=== PATIENT | female | born 1960 | race Caucasian/White ===

== ENCOUNTER → 2018-12-30 14:32 | Outpatient (CLI) | payer MEDICAID, SELFPAY ==
--- NOTE | 2018-12-30 14:39 | XR_ITS ---
XR knee RT 4V HISTORY: Knee pain ITS.REASON: ap, lateral, sunrise, arredondo weightbearing view ORDERING PHYSICIAN: Suha Rubalcava MD PATIENT AGE: 58 years COMPARISON: 09/29/2018 FINDINGS: There are mild osteoarthritic changes of the medial compartment unchanged. No fracture or dislocation. No lytic or blastic change. IMPRESSION: Mild osteoarthritis of the medial compartment
== END ==
PROVIDERS: PCP Nurse Practitioner; Visit Provider Orthopaedic Surgery
DX: M25.561 Pain in right knee (principal)
CPT/HCPCS: 73564

== ENCOUNTER 2020-04-02 23:48 | Emergency (ER) | payer SELFPAY ==
[2020-04-03 00:04] VITALS: BP 127/71; PULSE 91; RESP 17; TEMP 36.8; O2SAT 97; BMI 28.2
--- NOTE | 2020-04-03 00:13 | HMH.EDMCLR ---
ED Disposition Clinical Impression: Medical clearance for incarceration, Psychiatric complaint Disposition: Home, Self-Care Condition on Discharge: Good Instructions: DI for Psychosis Additional Instructions: call pcp for follow up and consider pschy eval Referrals: Brie Maxwell APRN [Primary Care Provider] - - Critical Care Critical Care Time: No Attestation: On 04/02/20, the high probability of a clinically significant, sudden or life threatening deterioration of the following system(s) required my full and direct attention, intervention and personal management. The time I documented below is in addition to time spent performing reported procedures but includes the following listed in this critical care notation. Medical Decision Making - Medical Records Medical records reviewed: Yes: I reviewed the patient's medical records. - Quinn Inquiry Pt receiving controlled substance: No Vital Signs: 04/03/20 00:04 Temperature 98.2 F Temperature Source Oral Pulse Rate [Right Brachial] 91 H Respiratory Rate 17 Blood Pressure [Right Arm] 127/71 Blood Pressure Mean [Right Arm] 89 Blood Pressure Source [Right Arm] Automatic Cuff Blood Pressure Position [Right Arm] Sitting 02 Sat by Pulse Oximetry 97 Oxygen Delivery Method Room Air - Lab Data Lab results reviewed: Yes: I reviewed the patient's lab results. Medical Clearance HPI - General Chief complaint: Psychiatric Symptoms Stated complaint: Medical Clearance Time Seen by Provider: 04/03/20 00:13 Mode of Arrival: Ambulatory Source of Information: Patient, Medical Record Description of Symptoms (Recalled from ER Triage Doc. by RN): pd brings in for medical clearance for incarceration to [facility], [facility]. 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 [id number]. no acute distress. - History of Present Illness HPI Narrative: pt with no trauma or chest pain and no specific issues - uncertain whether pt is having pschy issues MD complaint: medical clearance requested Onset (ago): hour(s) Reason for Medical Clearance: psychiatric condition Place: home Alleged Intoxication: No Traumatic Symptoms: denies traumatic injury Associated Symptoms: denies other symptoms Treatments Prior to Arrival: none Home medications: Home Medications Medication Instructions Recorded Confirmed ALPRAZolam [Alprazolam 2mg Tab] 1 tab PO QID 09/29/18 01/23/19 Celecoxib 200 mg PO DAILY 09/29/18 01/23/19 Cetirizine HCl 1 tab PO DAILY 09/29/18 01/23/19 Omeprazole [Omeprazole 20mg 1 cap PO BID 09/29/18 01/23/19 Capsule] Pravastatin Sodium [Pravachol 20mg 20 mg PO DAILY 09/29/18 01/23/19 Tablet] Tramadol HCl [Tramadol 50mg 1 tab PO Q6 PRN 09/29/18 01/23/19 Tab] gemfibroziL [Gemfibrozil] 600 mg PO BID 09/29/18 01/23/19 raNITIdine HCL [Heartburn Relief] 150 mg PO BID 09/29/18 01/23/19 Buspirone HCl [Buspar 10mg 10 mg PO BID 01/23/19 01/23/19 tablet] Hydralazine HCl [Hydralazine HCl 25 mg PO DAILY 01/23/19 01/23/19 25mg Tablet] Linaclotide [Linzess] 290 mcg PO DAILY 01/23/19 01/23/19 Ropinirole HCl 1 mg PO DAILY 01/23/19 01/23/19 Tramadol HCl [Tramadol 50mg 50 mg PO TID 01/23/19 01/23/19 Tab] diphenhydrAMINE HCL [Benadryl 25mg 25 mg PO TID 01/23/19 01/23/19 Capsule] Allergies/Adverse reactions: Allergies Allergy/AdvReac Type Severity Reaction Status Date / Time Penicillins Allergy Severe S-SWELLS-OR Verified 12/30/18 15:23 AL/THROAT acetaminophen [From Percocet] Allergy Intermediate I-HIVES Verified 12/30/18 15:23 aspirin [From Percodan] Allergy Intermediate I-HIVES; Verified 12/30/18 15:23 HALLUCINATIONS codeine Allergy Intermediate I-RASH Verified 12/30/18 15:23 egg [From EGGS (FOOD/DRUG)] Allergy Intermediate I-RASH Verified 12/30/18 15:23 morphine Allergy Intermediate I-RASH Verified 12/30/18 15:23 oxycodone [From Percodan] Allergy Inter
[2020-04-03 00:19] VITALS: BP 101/56; PULSE 85; RESP 16; TEMP 36.8; O2SAT 98
== END 2020-04-03 00:24 ==
PROVIDERS: Emergency Provider Emergency Medicine; PCP Nurse Practitioner
DX: F22 Delusional disorders (principal); R44.0 Auditory hallucinations; R44.1 Visual hallucinations; Z79.899 Other long term (current) drug therapy; Z88.0 Allergy status to penicillin; Z88.5 Allergy status to narcotic agent
CPT/HCPCS: 99281; 99282

== ENCOUNTER 2020-12-30 13:12 | Emergency (ER) | payer OTHER, SELFPAY ==
[2020-12-30 13:20] VITALS: BP 140/72; PULSE 83; RESP 20; TEMP 36.8; O2SAT 99; BMI 27.4
--- NOTE | 2020-12-30 13:59 | HMH.EDUTC ---
[facility] [place] Clinical Impression: Pedal edema Disposition: Home, Self-Care Condition on Discharge: Good Instructions: Edema (Alternative Therapy), DI for Dependent Edema Additional Instructions: Take your prescribed Lasix as it is prescribed *You was given a list of Family Doctors you may call and see if they are accepting new patient and make appointment Return if needed Straight to ER if any life threatening symptoms Referrals: PCP,No [Primary Care Provider] - As needed Time of Disposition: 14:07 Medical Decision Making - Quinn Inquiry Pt receiving controlled substance: No Quinn was queried for this patient: No Vital Signs: 12/30/20 13:20 12/30/20 14:16 Temperature 98.2 F 98.2 F Temperature Source Oral Pulse Rate 83 Pulse Rate [Right Brachial] 83 Respiratory Rate 20 20 Blood Pressure 140/72 Blood Pressure [Right Arm] 140/72 Blood Pressure Mean [Right Arm] 94 Blood Pressure Source [Right Arm] Automatic Cuff Blood Pressure Position [Right Arm] Sitting 02 Sat by Pulse Oximetry 99 Oxygen Delivery Method Room Air - Lab Data Lab results reviewed: Yes: I reviewed the patient's lab results. [facility] [place] - General Stated complaint: retaining fluid Time Seen by Provider: 12/30/20 13:59 Mode of Arrival: Ambulatory Source of Information: Patient Limitations: No Limitations Description of Symptoms (Recalled from Triage Doc. by RN): PATIENT C/O SWELLING IN BILATERAL FEET/LEGS, EXCESSIVE SWEATING, AND SORE FEET X 2 DAYS HEENT Symptoms (Recalled from RN notes): No Resp Symptoms (Recalled from RN notes): No Skin Symptoms (Recalled from RN notes): No MS Symptoms (Recalled from RN notes): No Functional Status (Recalled from RN notes): WNL - History of Present Illness Provider Complaint: Patient states that she has a history of edema and takes fluid pills States that recently her doctor left the clinic she was going too and another person took over her care and now they told her she had to find another PCP States that she had some edema for the last couple of weeks and she took her fluid pill and now the edema is better and she is no longer swollen but she was worried that she would run out of medication and didnt know what to do to find another PCP so she came here States that swelling and pain is gone at this time - Related Data Home Medications Medication Instructions Recorded Confirmed ALPRAZolam [Alprazolam 2mg Tab] 1 tab PO QID 09/29/18 01/23/19 Celecoxib 200 mg PO DAILY 09/29/18 01/23/19 Cetirizine HCl 1 tab PO DAILY 09/29/18 01/23/19 Omeprazole [Omeprazole 20mg 1 cap PO BID 09/29/18 01/23/19 Capsule] Pravastatin Sodium [Pravachol 20mg 20 mg PO DAILY 09/29/18 01/23/19 Tablet] Tramadol HCl [Tramadol 50mg 1 tab PO Q6 PRN 09/29/18 01/23/19 Tab] gemfibroziL [Gemfibrozil] 600 mg PO BID 09/29/18 01/23/19 raNITIdine HCL [Heartburn Relief] 150 mg PO BID 09/29/18 01/23/19 Buspirone HCl [Buspar 10mg 10 mg PO BID 01/23/19 01/23/19 tablet] Hydralazine HCl [Hydralazine HCl 25 mg PO DAILY 01/23/19 01/23/19 25mg Tablet] Linaclotide [Linzess] 290 mcg PO DAILY 01/23/19 01/23/19 Ropinirole HCl 1 mg PO DAILY 01/23/19 01/23/19 Tramadol HCl [Tramadol 50mg 50 mg PO TID 01/23/19 01/23/19 Tab] diphenhydrAMINE HCL [Benadryl 25mg 25 mg PO TID 01/23/19 01/23/19 Capsule] Allergies Allergy/AdvReac Type Severity Reaction Status Date / Time Penicillins Allergy Severe S-SWELLS-OR Verified 12/17/20 09:06 AL/THROAT acetaminophen [From Percocet] Allergy Intermediate I-HIVES Verified 12/17/20 09:06 aspirin [From Percodan] Allergy Intermediate I-HIVES; Verified 12/17/20 09:06 HALLUCINATIONS codeine Allergy Intermediate I-RASH Verified 12/17/20 09:06 egg [From EGGS (FOOD/DRUG)] Allergy Intermediate I-RASH Verified 12/17/20 09:06 morphine Allergy Intermediate I-RASH Verified 12/17/20 09:06 oxycodone [From Percodan] Allergy Intermediate I-HIVES; Verified 12/17/20 09:06
[2020-12-30 14:16] VITALS: BP 140/72; PULSE 83; RESP 20; TEMP 36.8; O2SAT 99
[2020-12-30 15:42] LABS: Apearance,Urine Clear (Clear); Bilirubin,Urine Negative (Negative); Blood, Urine Negative (Negative); Color,Urine Yellow (Yellow); Glucose,Urine (UA) Negative (Negative); Ketones,Urine Negative (Negative); Protein,Urine Negative (Negative); UTC Leukocyte Esterase,Urine Negative (Negative); UTC Nitrate,Urine Negative (Negative); Urobilinogen,Urine 0.2 EU/dl (0.2)
== END 2020-12-30 14:17 | disposition home or self-care (01) ==
PROVIDERS: Emergency Provider Nurse Practitioner
DX: R60.0 Localized edema (principal); E78.5 Hyperlipidemia, unspecified; K21.9 Gastro-esophageal reflux disease without esophagitis; F41.8 Other specified anxiety disorders; G43.709 Chronic migraine without aura, not intractable, without status migrainosus; Z79.899 Other long term (current) drug therapy; Z88.0 Allergy status to penicillin; Z88.5 Allergy status to narcotic agent
CPT/HCPCS: 81003; 99202; G0463

== ENCOUNTER → 2021-02-07 13:40 | Outpatient (CLI) | payer SELFPAY ==
[2021-02-07 13:47] LABS: Basophils # 0.1 K/mm3 (0-0.2); Basophils % 1.3 % (0.1-2.0); Eosinophils # 0.2 K/mm3 (0.0-0.4); Eosinophils % 2.1 % (0.1-12.0); Hematocrit 39.2 % (37.0-47.0); Hemoglobin 13.2 g/dL (12.2-16.2); Lymphocytes # 2.3 K/mm3 (0.7-4.5); Lymphocytes % 29.7 % (10-50); Mean Corpuscular HGB Conc 33.5 g/dL (31.8-35.4); Mean Corpuscular Hemoglobin 27.4 pg (27.0-31.2); Mean Corpuscular Volume 81.7 fl (81-99); Mean Platelet Volume 7.9 fl (7.4-10.4); Monocytes # 0.5 K/mm3 (0.1-1.0); Monocytes % 6.9 % (1.7-9.3); Neutrophils # 4.6 K/mm3 (1.8-7.8); Neutrophils % 60.1 % (37.0-80.0); Platelet Count 406 K/mm3 (142-424); Red Cell Distribution Width 15.1 % (11.5-17.5); White Blood Count 7.6 K/mm3 (4.8-10.8)
[2021-02-07 13:53] LABS: Alanine Aminotransferase 15 U/L (12-78); Albumin Level 4.4 g/dl (3.5-5.0); Albumin/Globulin Ratio 1.7 (1.1-1.8); Alkaline Phosphatase 80 U/L (38-126); Aspartate Amino Transferase 23 U/L (14-36); Bilirubin,Total 0.5 mg/dl (0.2-1.3); Blood Urea Nitrogen 11 mg/dl (7-17); Calcium 9.5 mg/dl (8.4-10.2); Carbon Dioxide 27 mmol/L (22.0-30.0); Chloride 105 mmol/L (98-107); Chol/HDL Ratio 4.5 (1-3.5); Cholesterol 262 mg/dl (140-200); Estimated Glomerular Filt Rate 72 ml/min (>60); GFR (African American) 88 ML/MIN (>60); Globulin 2.6 g/dL (1.3-3.2); Glucose 104 mg/dl (74-100); HDL Cholesterol 58 mg/dl (40-60); Sodium 139 mmol/L (136-145); Triglycerides 200 mg/dl (30-150); VLDL Cholesterol 40 mg/dL (0-40)
[2021-02-07 14:05] LABS: Direct LDL Cholesterol 159.98 mg/dL (100-129)
[2021-02-07 14:12] LABS: 25-OH Vitamin D, Total 74.3 ng/mL (30-100)
[2021-02-07 14:13] LABS: T4 (Thyroxine) 6.9 ug/dl (5.53-11.0)
[2021-02-07 14:26] LABS: Thyroid Stimulating Hormone 1.26 uIU/mL (0.465-4.68)
== END ==
PROVIDERS: Visit Provider Family Medicine
DX: E78.5 Hyperlipidemia, unspecified (principal); E66.9 Obesity, unspecified; Z68.30 Body mass index [BMI] 30.0-30.9, adult; Z79.899 Other long term (current) drug therapy
CPT/HCPCS: 80053; 80061; 82306; 84436; 84443; 85025

== ENCOUNTER 2022-02-02 20:09 | Emergency (ER) | payer SELFPAY ==
[2022-02-02 20:08] VITALS: BP 133/64; PULSE 63; RESP 14; TEMP 36.4; O2SAT 98; BMI 24.9
[2022-02-02 20:30] VITALS: BP 118/69; PULSE 75; O2SAT 98
--- NOTE | 2022-02-02 20:36 | HMH.EDPSYCH ---
ED Disposition Clinical Impression: Benzodiazepine misuse, Alcohol use, Anxiety Disposition: Home, Self-Care Condition on Discharge: Good Instructions: DI for Anxiety -- Adult Additional Instructions: see pcp for follow up Referrals: Provider,Referral, [Primary Care Provider] - - Critical Care Critical Care Time: No Attestation: On 02/02/22, the high probability of a clinically significant, sudden or life threatening deterioration of the following system(s) required my full and direct attention, intervention and personal management. The time I documented below is in addition to time spent performing reported procedures but includes the following listed in this critical care notation. Medical Decision Making - Medical Records Medical records reviewed: Yes: I reviewed the patient's medical records. - Quinn Inquiry Pt receiving controlled substance: No Vital Signs: 02/02/22 20:08 02/02/22 20:30 02/02/22 21:30 Temperature 97.6 F Temperature Source Oral Pulse Rate 75 Pulse Rate [Left] 63 Respiratory Rate 14 Blood Pressure 118/69 130/91 H Blood Pressure [Right Arm] 133/64 Blood Pressure Mean 104 Blood Pressure Mean [Right Arm] 87 02 Sat by Pulse Oximetry 98 98 96 Oxygen Delivery Method Room Air Room Air Room Air 02/02/22 22:30 Temperature Temperature Source Pulse Rate Pulse Rate [Left] Respiratory Rate Blood Pressure 114/74 Blood Pressure [Right Arm] Blood Pressure Mean 87 Blood Pressure Mean [Right Arm] 02 Sat by Pulse Oximetry 96 Oxygen Delivery Method Room Air - Lab Data Lab results reviewed: Yes: I reviewed the patient's lab results. Lab Results 02/02/22 21:07: WBC 6.3, RBC 4.86, Hgb 14.4, Hct 43.8, MCV 90.0, MCH 29.7, MCHC 33.0, RDW 14.3, Plt Count 524 H, MPV 7.2 L, Neut % (Auto) 49.6, Lymph % (Auto) 38.3, [place] % (Auto) 6.1, Eos % (Auto) 2.1, Baso % (Auto) 4.0 H, Neut # (Auto) 3.1, Lymph # (Auto) 2.4, [place] # (Auto) 0.4, Eos # (Auto) 0.1, Baso # (Auto) 0.3 H 02/02/22 21:07: Sodium 139, Potassium 3.5, Chloride 103, Carbon Dioxide 29, Anion Gap 10.5, BUN 5 L, Creatinine 0.70, Estimated Creat Clear 59, Estimated GFR 84, Est GFR ( Amer) 102, Glucose 94, Calcium 9.8, Total Bilirubin 0.3, AST 30, ALT 14, Alkaline Phosphatase 99, Total Protein 7.9, Albumin 4.7, Globulin 3.2, Albumin/Globulin Ratio 1.5, Salicylates < 1.0 L, Acetaminophen < 10 L 02/02/22 21:07: Total Bilirubin 0.3, Direct Bilirubin 0.2, Conjugated Bilirubin 0.0, Indirect Bilirubin 0.1, Unconjugated Bilirubin 0.2, AST 29, ALT 13, Alkaline Phosphatase 91, Total Protein 7.5, Albumin 4.4 02/02/22 21:07: Plasma/Serum Alcohol 66 H 02/02/22 21:27: Urine Color Yellow, Urine Appearance Clear, Urine pH 5.5, Ur Specific [place] <= 1.005, Urine Protein Negative, Urine Glucose (UA) Negative, Urine Ketones Negative, Urine Blood Trace-i, Urine Nitrate Negative, Urine Bilirubin Negative, Urine Urobilinogen 0.2, Ur Leukocyte Esterase 2+ A, Urine RBC Occasional, Urine WBC 3-5, Ur Squamous Epith Cells 20-50, Urine Bacteria 1+ 02/02/22 21:27: Urine Opiates Screen Negative, Urine Methadone Screen Negative, Ur Barbituates Screen Negative, Ur Phencyclidine Scrn Negative, Ur Amphetamines Screen Negative, U Benzodiazepines Scrn Positive H, Urine Cocaine Screen Negative, U Marijuana (THC) Screen Negative Result diagrams: 02/02/22 21:07 02/02/22 21:07 Orders (Tests/Meds): ORDERS Category Date Time Status Urine Culture Stat Micro 02/02/22 21:27 Received Medical Decision Narrative: pt with no evid of self - harm but used meds and etoh - Psych HPI - General Chief Complaint: Medical Clearance Stated Complaint: Psych Time Seen by Provider: 02/02/22 20:36 Mode of Arrival: EMS Source of Information: Patient, EMS, Medical Record Description of Symptoms (Recalled from ER Triage Doc. by RN): pt states that she was having a bad day and that she just found out she had $[id number] taken from her that she was set to inherit at 63
--- NOTE | 2022-02-02 20:55 | ECG_ITS ---
APPROVED REPORT Exam: Resting ECG HR:62 bpm ECG Measurements Heart Rate 62 AXES TN 161 P 48 QRSd 81 QRS 14 QT 383 T 37 QTc 387 Conclusion SINUS RHYTHM LOW QRS VOLTAGE IN PRECORDIAL LEADS [QRS DEFLECTION < 1.0 mV IN CHEST LEADS] BORDERLINE ECG UNCONFIRMED REPORT Electronically signed by : Ronny Ahumada MD 02/03/2022 17:47:22
[2022-02-02 21:18] LABS: Basophils # 0.3 K/mm3 (0-0.2); Eosinophils # 0.1 K/mm3 (0.0-0.4); Eosinophils % 2.1 % (0.1-12.0); Hematocrit 43.8 % (37.0-47.0); Hemoglobin 14.4 g/dL (12.2-16.2); Lymphocytes # 2.4 K/mm3 (0.7-4.5); Lymphocytes % 38.3 % (10-50); Mean Corpuscular Hemoglobin 29.7 pg (27.0-31.2); Mean Platelet Volume 7.2 fl (7.4-10.4); Monocytes # 0.4 K/mm3 (0.1-1.0); Monocytes % 6.1 % (1.7-9.3); Neutrophils # 3.1 K/mm3 (1.8-7.8); Neutrophils % 49.6 % (37.0-80.0); Platelet Count 524 K/mm3 (142-424); Red Blood Count 4.86 M/mm3 (4.20-5.40); Red Cell Distribution Width 14.3 % (11.5-17.5); White Blood Count 6.3 K/mm3 (4.8-10.8)
[2022-02-02 21:21] LABS: Chloride 103 mmol/L (98-107); Potassium 3.5 mmoL/L (3.5-5.1); Sodium 139 mmol/L (136-145)
[2022-02-02 21:23] LABS: Alanine Aminotransferase 13 U/L (12-78); Alanine Aminotransferase 14 U/L (12-78); Albumin Level 4.4 g/dl (3.5-5.0); Alkaline Phosphatase 91 U/L (38-126); Aspartate Amino Transferase 29 U/L (14-36); Aspartate Amino Transferase 30 U/L (14-36); Bilirubin,Direct 0.2 mg/dl (0.0-0.4); Bilirubin,Indirect 0.1 mg/dL (0.0-0.9); Bilirubin,Total 0.3 mg/dl (0.2-1.3); Bilirubin,Unconjugated 0.2 mg/dL (0.0-1.1); Blood Urea Nitrogen 5 mg/dl (7-17); Creatinine Clearance Estimated 59 mL/min (50-200); Estimated Glomerular Filt Rate 84 ml/min (>60); GFR (African American) 102 ML/MIN (>60); Total Protein,Serum 7.5 g/dl (6.3-8.2)
[2022-02-02 21:24] LABS: Albumin Level 4.7 g/dl (3.5-5.0); Albumin/Globulin Ratio 1.5 (1.1-1.8); Alkaline Phosphatase 99 U/L (38-126); Anion Gap 10.5 mEq/L (5-15); Bilirubin,Total 0.3 mg/dl (0.2-1.3); Calcium 9.8 mg/dl (8.4-10.2); Carbon Dioxide 29 mmol/L (22.0-30.0); Globulin 3.2 g/dL (1.3-3.2); Glucose 94 mg/dl (74-100); Total Protein,Serum 7.9 g/dl (6.3-8.2)
[2022-02-02 21:30] VITALS: BP 130/91; O2SAT 96
[2022-02-02 21:32] LABS: Ethyl Alcohol 66 mg/dl (0-10)
[2022-02-02 21:34] LABS: Acetaminophen < 10 ug/ml (10-30); Salicylate < 1.0 mg/dL (2.0-20.0)
[2022-02-02 21:41] LABS: Appearance,Urine CLEAR (Clear); Bilirubin,Urine Negative (Negative); Blood, Urine TRACE-I (Negative); Color,Urine YELLOW (Yellow); Glucose,Urine (UA) Negative (Negative); Ketones,Urine Negative (Negative); Leukocyte Esterase,Urine 2+ (Negative); Microscopic, Urine URINE MICROSCOPIC (MICROSCOPIC); Nitrate,Urine Negative (Negative); PH,Urine 5.5 (5.0-8.5); Protein,Urine Negative (Negative); Specific Gravity, Urine <= 1.005 (1.005-1.030); Urobilinogen,Urine 0.2 EU/dl (0.2)
[2022-02-02 21:52] LABS: Bacteria,Urine 1+ /lpf; RBC,Urine Occasional #/hpf (0-3); Squamous Epithelial Cell,Urine 20-50 #/hpf (0-5)
[2022-02-02 21:53] LABS: Barbiturates Screen,Urine Negative ng/ml (<200); Benzodiazepines Screen,Urine Positive ng/ml (<200)
[2022-02-02 21:54] LABS: Amphetamine/Metha Screen,Urine Negative ng/ml (<1000)
[2022-02-02 21:55] LABS: Cannabinoid Screen,Urine Negative ng/ml (<50); Cocaine Screen,Urine Negative ng/ml (<300)
[2022-02-02 21:56] LABS: Methadone Screen,Urine Negative ng/ml (<300)
[2022-02-02 21:57] LABS: Opiate Screen,Urine Negative ng/ml (<300); Phencyclidine Screen,Urine Negative ng/ml (<25)
--- NOTE | 2022-02-02 22:10 | PC.NURSE ---
spoke with melo at poison control at 2041 we were directed to check the asprin level and the tylenol level if they were good and she wasnt in respratory depression her release was at the MD discretion
[2022-02-02 22:30] VITALS: BP 114/74; O2SAT 96
--- NOTE | 2022-02-02 22:48 | PC.NURSE ---
follow up with poison control and they would like a psych consult but medically she is closed out on their end
--- NOTE | 2022-02-02 23:00 | PC.NURSE ---
Pt resting in bed. No new needs.
--- NOTE | 2022-02-03 | PC.NURSE ---
Warm blanket given. Pt sleeping well.
--- NOTE | 2022-02-03 02:13 | PC.NURSE ---
Pt ambulatory to bathroom. No new needs. Voice mail left on [facility] phone
--- NOTE | 2022-02-03 04:18 | PC.NURSE ---
Pt still sleeping
--- NOTE | 2022-02-03 05:26 | PC.NURSE ---
No new needs
--- NOTE | 2022-02-03 06:12 | PC.NURSE ---
Pt is resting well and snoring
--- NOTE | 2022-02-03 06:59 | PC.NURSE ---
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
[2022-02-03 08:02] VITALS: BP 132/74; PULSE 78; RESP 16; TEMP 36.6; O2SAT 98
== END 2022-02-03 08:03 | disposition home or self-care (01) ==
PROVIDERS: Emergency Provider Emergency Medicine
DX: F19.10 Other psychoactive substance abuse, uncomplicated (principal); F10.980 Alcohol use, unspecified with alcohol-induced anxiety disorder; Z02.89 Encounter for other administrative examinations; Z88.0 Allergy status to penicillin; Z88.6 Allergy status to analgesic agent; Z88.5 Allergy status to narcotic agent; Z85.89 Personal history of malignant neoplasm of other organs and systems
CPT/HCPCS: 80053; 80076; 80305; 80329; 81001; 85025; 87086; 93005; 99283

== ENCOUNTER → 2022-03-24 14:17 | Outpatient (CLI) | payer OTHER, SELFPAY ==
[2022-03-24 13:55] LABS: Phencyclidine Screen,Urine Negative ng/ml (<25)
[2022-03-24 13:57] LABS: Amphetamine/Metha Screen,Urine Negative ng/ml (<1000)
[2022-03-24 13:59] LABS: Barbiturates Screen,Urine Negative ng/ml (<200); Cannabinoid Screen,Urine Negative ng/ml (<50)
[2022-03-24 14:00] LABS: Benzodiazepines Screen,Urine Positive ng/ml (<200)
[2022-03-24 14:01] LABS: Cocaine Screen,Urine Negative ng/ml (<300); Opiate Screen,Urine Negative ng/ml (<300)
[2022-03-24 14:02] LABS: Methadone Screen,Urine Negative ng/ml (<300)
== END ==
PROVIDERS: PCP Family Medicine; Visit Provider Family Medicine
DX: Z79.899 Other long term (current) drug therapy (principal)
CPT/HCPCS: 80305

== ENCOUNTER 2023-06-08 11:59 | Outpatient (CLI) | payer MEDICARE, MEDICAID, SELFPAY ==
[2023-06-08 12:04] VITALS: BMI 22.4
[2023-06-08 12:40] VITALS: BP 101/69; PULSE 83; RESP 16; TEMP 36.6; O2SAT 97
[2023-06-08 12:52] LABS: Basophils # 0.1 K/mm3 (0-0.2); Basophils % 0.9 % (0.1-2.0); Eosinophils # 0.2 K/mm3 (0.0-0.4); Hematocrit 35.4 % (37.0-47.0); Hemoglobin 11.1 g/dL (12.2-16.2); Lymphocytes # 3.2 K/mm3 (0.7-4.5); Lymphocytes % 35.7 % (10-50); Mean Corpuscular HGB Conc 31.3 g/dL (31.8-35.4); Mean Corpuscular Hemoglobin 26.4 pg (27.0-31.2); Mean Corpuscular Volume 84.2 fl (81-99); Monocytes # 0.5 K/mm3 (0.1-1.0); Monocytes % 5.5 % (1.7-9.3); Neutrophils % 55.7 % (37.0-80.0); Platelet Count 588 K/mm3 (142-424); Red Blood Count 4.21 M/mm3 (4.20-5.40); Red Cell Distribution Width 14.1 % (11.5-17.5); White Blood Count 8.9 K/mm3 (4.8-10.8)
[2023-06-08 13:07] LABS: Alanine Aminotransferase 16 U/L (12-78); Albumin Level 3.8 g/dl (3.5-5.0); Albumin/Globulin Ratio 1.2 (1.1-1.8); Alkaline Phosphatase 121 U/L (38-126); Anion Gap 11.4 mEq/L (5-15); Aspartate Amino Transferase 23 U/L (14-36); Bilirubin,Total 0.2 mg/dl (0.2-1.3); Blood Urea Nitrogen 9 mg/dl (7-17); Calcium 8.7 mg/dl (8.4-10.2); Carbon Dioxide 29 mmol/L (22.0-30.0); Chloride 99 mmol/L (98-107); Creatinine Clearance Estimated 53 mL/min (50-200); Estimated Glomerular Filt Rate 72 ml/min (>60); GFR (African American) 87 ML/MIN (>60); Globulin 3.3 g/dL (1.3-3.2); Glucose 102 mg/dl (74-100); Potassium 3.4 mmoL/L (3.5-5.1); Sodium 136 mmol/L (136-145); Total Protein,Serum 7.1 g/dl (6.3-8.2)
[2023-06-08 13:38] LABS: Thyroid Stimulating Hormone 0.78 uIU/mL (0.465-4.68)
[2023-06-08 13:40] VITALS: BP 108/51; PULSE 73; RESP 16; TEMP 36.6; O2SAT 97
[2023-06-08 19:22] LABS: Barbiturates Screen,Urine Negative ng/ml (<200)
[2023-06-08 19:23] LABS: Benzodiazepines Screen,Urine Positive ng/ml (<200)
[2023-06-08 19:24] LABS: Amphetamine/Metha Screen,Urine Negative ng/ml (<1000); Cocaine Screen,Urine Negative ng/ml (<300)
[2023-06-08 19:25] LABS: Cannabinoid Screen,Urine Negative ng/ml (<50); Methadone Screen,Urine Negative ng/ml (<300)
[2023-06-08 19:26] LABS: Opiate Screen,Urine Negative ng/ml (<300)
[2023-06-08 19:27] LABS: Phencyclidine Screen,Urine Negative ng/ml (<25)
== END 2023-06-08 13:45 | disposition home or self-care (01) ==
LOC: INF 12:00
PROVIDERS: PCP Family Medicine; Visit Provider Family Medicine
DX: E86.0 Dehydration (principal); R94.6 Abnormal results of thyroid function studies; I95.89 Other hypotension; Z79.899 Other long term (current) drug therapy
CPT/HCPCS: 80053; 80305; 84443; 85025; 96360

== ENCOUNTER 2023-08-11 12:10 | Day surgery (SDC) | payer MEDICARE, OTHER, SELFPAY ==
[2023-08-07 09:45] VITALS: BMI 22.1
[2023-08-11 12:31] VITALS: BP 149/72; PULSE 114; RESP 18; TEMP 36.6; O2SAT 99
--- NOTE | 2023-08-11 12:35 | HMH.SCOPE ---
Procedure: Date: 08/11/23 Patient Date of :: 1960 Procedure Performed:: Extended anoscopy with biopsy utilizing colonoscope Indications:: Bleeding hemorrhoids with polypoid lobular change Performing Provider:: Huang Panchal MD Referring Provider:: . Sedation:: Monitored anesthesia care Procedure:: After informed consent was obtained the patient was taken to the endoscopy suite. Sedation ensued after the patient was transferred to the left lateral decubitus position. Pulse, blood pressure, and oxygen saturation were monitored throughout the procedure. Digital rectal exam revealed fungating ulcerative firm anorectal mass lesion with distal prolapse beyond the anal margin. The colonoscope was placed in position and then utilized to facilitate biopsies of the ulcerative/fungating anorectal mass lesion. Just beyond the mass lesion the rectal vault was impacted with stool and advancement of the colonoscope beyond this point was deemed unwarranted/unsafe. The colonoscope was carefully removed and the patient was transferred to recovery in stable condition. Please see findings and specimens below for detail. Findings:: Firm complex ulcerative/fungating anorectal mass lesion Bowel preparation exceptionally poor Specimens:: Multiple biopsies of firm complex ulcerative/fungating anorectal mass lesion Recommendations:: Colorectal consultation pending Complications:: No immediate Estimated blood obtained (mL): 1 Colonoscopy Component Colonoscopy Component Was a colonoscopy performed during today's procedure?: Yes Recommended follow up colonoscopy of at least 10 years?: No If no, follow up colonoscopy recommended in ___ years?: (See above) Reason for not recommending >/= 10 yr follow-up interval?: (See above)
--- NOTE | 2023-08-11 13:39 | EXP.ANES.CKL ---
[facility] Disclaimer: The information contained in this section may have been updated after the patient was seen, as this information can be updated by other users. Medical History Medical clearance for incarceration Pedal edema Surgical History History of tonsillectomy Hx of esophagogastroduodenoscopy Hx of local excision of skin lesion Family History Other Family history of TIAs Family history of cancer Social History Smoking Status: Never smoker alcohol intake: current substance use type: denies use current occupational status: retired Travel in the last 8 weeks: None household members: other number of children: [address] [facility] Anesthesia Checklist Patient Identification Patient Identification: Arm Band Structural Data Admitted From: Home Planned Operative Procedure/s: colonoscopy Consent for Planned Operative Procedure(s) Verified: Yes Verified Documents: Surgical Consent and History and Physical NPO Status Verified Time NPO: 00:00 Additional verifications Anesthesia Reactions: No Airway Assessment Mallampati Score:: Class II C-Spine Mobility Assessed: Yes TMJ Mobility Assessed: Yes Dentition: Good Dentition Neurological Assessment Level of Consciousness: Awake and Alert Anesthesia Plan Anesthesia Risk discussed: Yes Anesthesia Plan: Verified ASA Class: II Anesthesia Type: MAC
[2023-08-11 14:18] VITALS: O2SAT 100
[2023-08-11 14:31] VITALS: BP 101/75; PULSE 92; RESP 16; TEMP 36.7; O2SAT 100
[2023-08-11 14:41] VITALS: BP 128/78; PULSE 97; RESP 16; O2SAT 100
[2023-08-11 14:51] VITALS: BP 103/69; PULSE 96; RESP 17; O2SAT 100
[2023-08-11 14:58] VITALS: BP 126/84; PULSE 93; RESP 16; TEMP 36.9; O2SAT 100
[2023-10-09 15:35] LABS: Iron 30 ug/dL (37-170)
[2023-10-09 15:50] LABS: Total Iron Binding Capacity 253 ug/dL (265-497)
[2023-10-09 16:12] LABS: Ferritin 7.23 ng/ml (11.1-264)
== END 2023-08-11 15:02 | disposition home or self-care (01) ==
PROVIDERS: Internal Medicine Medical Oncology; PCP Family Medicine; Visit Provider Surgery
PROC: 0DJD8ZZ Inspection of Lower Intestinal Tract, Via Natural or Artificial Opening Endoscopic (ICD-10-PCS; CPT 46606; principal; 2023-08-11 13:30)
DX: C21.8 Malignant neoplasm of overlapping sites of rectum, anus and anal canal (principal); B97.7 Papillomavirus as the cause of diseases classified elsewhere; Z91.199 Patient's noncompliance with other medical treatment and regimen due to unspecified reason
CPT/HCPCS: 46606; 82728; 83540; 83550; 88305; 88341; 88342

== ENCOUNTER 2023-10-09 11:09 | Outpatient (CLI) | payer MEDICARE, MEDICAID, SELFPAY ==
[2023-10-09 12:26] VITALS: BMI 20.7
[2023-10-09 12:30] LABS: Basophils # 0.1 K/mm3 (0-0.2); Eosinophils # 0.2 K/mm3 (0.0-0.4); Eosinophils % 1.8 % (0.1-12.0); Hematocrit 33.5 % (37.0-47.0); Hemoglobin 10.6 g/dL (12.2-16.2); Lymphocytes # 2.4 K/mm3 (0.7-4.5); Lymphocytes % 27.2 % (10-50); Mean Corpuscular HGB Conc 31.8 g/dL (31.8-35.4); Mean Corpuscular Hemoglobin 24.7 pg (27.0-31.2); Mean Corpuscular Volume 77.6 fl (81-99); Monocytes # 0.5 K/mm3 (0.1-1.0); Monocytes % 5.9 % (1.7-9.3); Neutrophils # 5.6 K/mm3 (1.8-7.8); Neutrophils % 64.2 % (37.0-80.0); Platelet Count 709 K/mm3 (142-424); Red Blood Count 4.31 M/mm3 (4.20-5.40); Red Cell Distribution Width 17.4 % (11.5-17.5); White Blood Count 8.7 K/mm3 (4.8-10.8)
[2023-10-09 13:18] LABS: Alanine Aminotransferase 14 U/L (12-78); Albumin Level 3.4 g/dl (3.5-5.0); Albumin/Globulin Ratio 1.2 (1.1-1.8); Alkaline Phosphatase 126 U/L (38-126); Anion Gap 13.2 mEq/L (5-15); Aspartate Amino Transferase 25 U/L (14-36); Bilirubin,Total 0.4 mg/dl (0.2-1.3); Blood Urea Nitrogen 14 mg/dl (7-17); Calcium 8.9 mg/dl (8.4-10.2); Carbon Dioxide 24 mmol/L (22.0-30.0); Chloride 102 mmol/L (98-107); Creatinine Clearance Estimated 50 mL/min (50-200); Estimated Glomerular Filt Rate 84 ml/min (>60); GFR (African American) 102 ML/MIN (>60); Globulin 2.9 g/dL (1.3-3.2); Glucose 93 mg/dl (74-100); Potassium 4.2 mmoL/L (3.5-5.1); Sodium 135 mmol/L (136-145); Total Protein,Serum 6.3 g/dl (6.3-8.2)
[2023-10-10 15:56] LABS: HIV Screen 4th Generation wRfx Non Reactive (Non Reactive)
== END 2023-10-09 23:59 ==
LOC: LAB 11:11
PROVIDERS: PCP Family Medicine; Visit Provider Internal Medicine Medical Oncology
DX: C21.1 Malignant neoplasm of anal canal (principal); Z11.4 Encounter for screening for human immunodeficiency virus [HIV]
CPT/HCPCS: 36415; 80053; 85025; 86703; G0432

== ENCOUNTER 2023-10-19 13:35 | Outpatient (CLI) | payer MEDICARE, MEDICAID, SELFPAY ==
[2023-10-19] MEDS: FAMOTIDINE 20MG TABLET 20 MG (13:47)
[2023-10-19] MEDS: 0.9 % SODIUM CHLORIDE 50 ML 25 ML IV (13:48)
[2023-10-19] MEDS: ACETAMINOPHEN 325MG TAB 650 MG (13:48)
[2023-10-19] MEDS: DEXAMETHASONE 4MG TABLET 8 MG (13:48)
[2023-10-19] MEDS: diphenhydrAMINE 25MG CAPSULE 25 MG PO (13:48)
[2023-10-19 14:30] VITALS: BP 104/49; PULSE 76; RESP 18; O2SAT 98
[2023-10-19] MEDS: IRON SUCROSE COMPLEX 200 MG in 0.9 % SODIUM CHLORIDE 100 ML 220 MG IV (14:30)
[2023-10-19 15:01] VITALS: BP 94/54; PULSE 69; RESP 18; O2SAT 98
== END 2023-10-19 23:59 ==
LOC: INF 13:36
PROVIDERS: PCP Family Medicine; Visit Provider Internal Medicine Medical Oncology
DX: C21.1 Malignant neoplasm of anal canal (principal); D50.0 Iron deficiency anemia secondary to blood loss (chronic)
CPT/HCPCS: 96365; J1756

== ENCOUNTER 2023-11-04 10:52 | Outpatient (CLI) | payer MEDICARE, MEDICAID, SELFPAY ==
[2023-11-04] MEDS: ACETAMINOPHEN 325MG TAB 650 MG (11:08)
[2023-11-04] MEDS: 0.9 % SODIUM CHLORIDE 50 ML 100 ML IV (11:08)
[2023-11-04] MEDS: DEXAMETHASONE 4MG TABLET 8 MG (11:09)
[2023-11-04] MEDS: diphenhydrAMINE 25MG CAPSULE 25 MG PO (11:09)
[2023-11-04] MEDS: FAMOTIDINE 20MG TABLET 20 MG (11:09)
[2023-11-04] MEDS: IRON SUCROSE COMPLEX 200 MG in 0.9 % SODIUM CHLORIDE 100 ML 220 MG IV (11:37)
[2023-11-04 11:40] VITALS: BP 113/67; PULSE 92; RESP 16; O2SAT 97
[2023-11-04 12:15] VITALS: BP 96/65; PULSE 81; RESP 17
== END 2023-11-04 12:40 | disposition home or self-care (01) ==
LOC: INF 10:53
PROVIDERS: PCP Family Medicine; Visit Provider Internal Medicine Medical Oncology
DX: C21.1 Malignant neoplasm of anal canal (principal); D50.0 Iron deficiency anemia secondary to blood loss (chronic)
CPT/HCPCS: 96365; J1756

== ENCOUNTER 2023-11-10 09:14 | Outpatient (CLI) | payer MEDICARE, MEDICAID, SELFPAY ==
[2023-11-10 09:25] VITALS: BMI 21.9
[2023-11-10] MEDS: diphenhydrAMINE 25MG CAPSULE 25 MG PO (09:44)
[2023-11-10] MEDS: DEXAMETHASONE 4MG TABLET 12 MG PO (09:45)
[2023-11-10] MEDS: ACETAMINOPHEN 325MG TAB 650 MG PO (09:45)
[2023-11-10] MEDS: SODIUM CHLORIDE 0.9% 50ML BAG 50 ML IV (09:46)
[2023-11-10] MEDS: FAMOTIDINE 20MG TABLET 20 MG PO (09:46)
[2023-11-10 09:47] LABS: Basophils % 0.3 % (0.1-2.0); Eosinophils # 0.2 K/mm3 (0.0-0.4); Hematocrit 34.4 % (37.0-47.0); Hemoglobin 10.7 g/dL (12.2-16.2); Lymphocytes % 34.8 % (10-50); Mean Corpuscular HGB Conc 31.1 g/dL (31.8-35.4); Mean Corpuscular Hemoglobin 26.2 pg (27.0-31.2); Mean Corpuscular Volume 84.3 fl (81-99); Mean Platelet Volume 7.3 fl (7.4-10.4); Monocytes # 0.7 K/mm3 (0.1-1.0); Neutrophils # 4.8 K/mm3 (1.8-7.8); Platelet Count 697 K/mm3 (142-424); Red Blood Count 4.08 M/mm3 (4.20-5.40); Red Cell Distribution Width 20.5 % (11.5-17.5); White Blood Count 8.7 K/mm3 (4.8-10.8)
[2023-11-10 09:59] LABS: Alanine Aminotransferase 18 U/L (12-78); Albumin Level 3.1 g/dl (3.5-5.0); Albumin/Globulin Ratio 1.1 (1.1-1.8); Alkaline Phosphatase 138 U/L (38-126); Anion Gap 8.6 mEq/L (5-15); Aspartate Amino Transferase 28 U/L (14-36); Bilirubin,Total 0.3 mg/dl (0.2-1.3); Blood Urea Nitrogen 13 mg/dl (7-17); Calcium 8.2 mg/dl (8.4-10.2); Carbon Dioxide 27 mmol/L (22.0-30.0); Chloride 105 mmol/L (98-107); Creatinine Clearance Estimated 51 mL/min (50-200); Estimated Glomerular Filt Rate 100 ml/min (>60); GFR (African American) 121 ML/MIN (>60); Globulin 2.9 g/dL (1.3-3.2); Glucose 93 mg/dl (74-100); Magnesium 2.3 mg/dl (1.6-2.3); Potassium 3.6 mmoL/L (3.5-5.1); Sodium 137 mmol/L (136-145)
[2023-11-10] MEDS: IRON SUCROSE COMPLEX 200 MG in 0.9 % SODIUM CHLORIDE 100 ML 220 MG IV (10:15)
[2023-11-10 10:18] VITALS: BP 109/58; PULSE 90; RESP 19; O2SAT 100
[2023-11-10 10:32] VITALS: BP 94/63; PULSE 83; RESP 18
[2023-11-10 10:51] VITALS: RESP 18
[2023-11-10] MEDS: mitoMYcin 20MG/40ML VIAL 16 MG IV (11:00)
[2023-11-10 11:05] VITALS: BP 91/60; PULSE 81; RESP 18; O2SAT 100
[2023-11-10] MEDS: 0.9 % SODIUM CHLORIDE 100 ML 200 ML IV (11:05)
--- NOTE | 2023-11-10 11:15 | PC.NURSE ---
1115-called pt prescriptions for loperamide 2mg and compazine 10mg to [facility].
[2023-11-10 11:25] VITALS: BP 100/60; PULSE 80; RESP 18; O2SAT 100
[2023-11-10 12:15] VITALS: BP 111/67; PULSE 67; RESP 18; TEMP 36.4; O2SAT 100
--- NOTE | 2023-11-30 14:11 | SW/DCPLANNER ---
Addendum entered by Rebecca Mills 11/30/23 14:12: Confirmation #[id number] Original Note: I have scheduled [facility] for this patient on 12/03/23 for appointment w/ Dr Dumont at 10:45AM.
--- NOTE | 2023-12-03 13:43 | SW/DCPLANNER ---
I have scheduled [facility] for this patient for follow up w/ Dr Dumont on 12/09 at 10:45AM: I have called and updated this patient. Confirmation ID [id number].
== END 2023-11-10 12:15 | disposition home or self-care (01) ==
LOC: INF 09:15
PROVIDERS: PCP Family Medicine; Visit Provider Internal Medicine Medical Oncology
DX: C21.1 Malignant neoplasm of anal canal (principal); Z79.899 Other long term (current) drug therapy
CPT/HCPCS: 80053; 83735; 85025; 96365; 96417; J1756; J9280

== ENCOUNTER 2023-12-03 11:13 | Outpatient (CLI) | payer MEDICARE, MEDICAID, SELFPAY ==
[2023-12-03 11:19] VITALS: BMI 20.9
--- NOTE | 2023-12-03 11:41 | PC.NURSE ---
1138- labs drawn via venipuncture in right ac and forearm with butterfly needle
[2023-12-03 12:35] LABS: Basophils # 0.1 K/mm3 (0-0.2); Basophils % 0.8 % (0.1-2.0); Eosinophils % 0.6 % (0.1-12.0); Hematocrit 30.6 % (37.0-47.0); Hemoglobin 9.5 g/dL (12.2-16.2); Lymphocytes # 1.1 K/mm3 (0.7-4.5); Lymphocytes % 15.3 % (10-50); Mean Corpuscular HGB Conc 30.9 g/dL (31.8-35.4); Mean Corpuscular Hemoglobin 26.9 pg (27.0-31.2); Mean Platelet Volume 7.6 fl (7.4-10.4); Monocytes # 0.3 K/mm3 (0.1-1.0); Monocytes % 4.9 % (1.7-9.3); Neutrophils # 5.4 K/mm3 (1.8-7.8); Neutrophils % 78.3 % (37.0-80.0); Platelet Count 937 K/mm3 (142-424); Red Blood Count 3.52 M/mm3 (4.20-5.40); Red Cell Distribution Width 20.9 % (11.5-17.5); White Blood Count 6.9 K/mm3 (4.8-10.8)
[2023-12-03 12:39] LABS: Chloride 104 mmol/L (98-107); Potassium 3.4 mmoL/L (3.5-5.1); Sodium 135 mmol/L (136-145)
[2023-12-03 12:42] LABS: Alanine Aminotransferase 17 U/L (12-78); Albumin Level 3.3 g/dl (3.5-5.0); Albumin/Globulin Ratio 1.1 (1.1-1.8); Alkaline Phosphatase 134 U/L (38-126); Anion Gap 9.4 mEq/L (5-15); Aspartate Amino Transferase 35 U/L (14-36); Bilirubin,Total 0.3 mg/dl (0.2-1.3); Blood Urea Nitrogen 8 mg/dl (7-17); Calcium 8.4 mg/dl (8.4-10.2); Carbon Dioxide 25 mmol/L (22.0-30.0); Creatinine Clearance Estimated 49 mL/min (50-200); Estimated Glomerular Filt Rate 100 ml/min (>60); GFR (African American) 121 ML/MIN (>60); Globulin 3.1 g/dL (1.3-3.2); Glucose 95 mg/dl (74-100); Total Protein,Serum 6.4 g/dl (6.3-8.2)
--- NOTE | 2023-12-03 14:26 | PC.NURSE ---
1240- wanda here from lab to recollect specimens
== END 2023-12-03 12:50 | disposition home or self-care (01) ==
LOC: INF 11:15
PROVIDERS: PCP Family Medicine; Visit Provider Internal Medicine Medical Oncology
DX: C21.1 Malignant neoplasm of anal canal (principal)
CPT/HCPCS: 36415; 80053; 85025

== ENCOUNTER 2023-12-10 10:47 | Outpatient (CLI) | payer MEDICARE, MEDICAID, SELFPAY ==
[2023-12-10 10:55] VITALS: BMI 21.1
--- NOTE | 2023-12-10 10:58 | PC.NURSE ---
1058-collected labs via venipuncture stick with butterfly needle in left wrist;pt to oncology appointment
[2023-12-10 11:07] LABS: Basophils # 0.1 K/mm3 (0-0.2); Basophils % 1.1 % (0.1-2.0); Eosinophils # 0.1 K/mm3 (0.0-0.4); Eosinophils % 1.2 % (0.1-12.0); Hemoglobin 10.3 g/dL (12.2-16.2); Lymphocytes # 0.5 K/mm3 (0.7-4.5); Lymphocytes % 8.8 % (10-50); Mean Corpuscular HGB Conc 30.3 g/dL (31.8-35.4); Mean Corpuscular Hemoglobin 27.3 pg (27.0-31.2); Mean Corpuscular Volume 90.3 fl (81-99); Mean Platelet Volume 7.4 fl (7.4-10.4); Monocytes # 0.4 K/mm3 (0.1-1.0); Neutrophils # 4.9 K/mm3 (1.8-7.8); Neutrophils % 82.9 % (37.0-80.0); Platelet Count 878 K/mm3 (142-424); Red Blood Count 3.76 M/mm3 (4.20-5.40); Red Cell Distribution Width 22.3 % (11.5-17.5); White Blood Count 5.9 K/mm3 (4.8-10.8)
[2023-12-10 11:39] LABS: Alanine Aminotransferase 15 U/L (12-78); Albumin Level 3.4 g/dl (3.5-5.0); Alkaline Phosphatase 128 U/L (38-126); Anion Gap 8.3 mEq/L (5-15); Aspartate Amino Transferase 27 U/L (14-36); Bilirubin,Total 0.3 mg/dl (0.2-1.3); Blood Urea Nitrogen 13 mg/dl (7-17); Carbon Dioxide 28 mmol/L (22.0-30.0); Chloride 103 mmol/L (98-107); Creatinine Clearance Estimated 49 mL/min (50-200); Estimated Glomerular Filt Rate 100 ml/min (>60); GFR (African American) 121 ML/MIN (>60); Globulin 3.4 g/dL (1.3-3.2); Glucose 98 mg/dl (74-100); Potassium 3.3 mmoL/L (3.5-5.1); Sodium 136 mmol/L (136-145); Total Protein,Serum 6.8 g/dl (6.3-8.2)
== END 2023-12-10 11:00 | disposition home or self-care (01) ==
LOC: INF 10:49
PROVIDERS: PCP Family Medicine; Visit Provider Internal Medicine Medical Oncology
DX: C21.1 Malignant neoplasm of anal canal (principal)
CPT/HCPCS: 36415; 80053; 85025

== ENCOUNTER 2023-12-17 10:52 | Outpatient (CLI) | payer MEDICARE, MEDICAID, SELFPAY ==
[2023-12-17 10:53] VITALS: BMI 20.9
[2023-12-17 11:13] LABS: Basophils % 0.8 % (0.1-2.0); Eosinophils # 0.3 K/mm3 (0.0-0.4); Eosinophils % 6.8 % (0.1-12.0); Hematocrit 34.2 % (37.0-47.0); Hemoglobin 10.5 g/dL (12.2-16.2); Lymphocytes # 0.6 K/mm3 (0.7-4.5); Lymphocytes % 15.2 % (10-50); Mean Corpuscular HGB Conc 30.8 g/dL (31.8-35.4); Mean Corpuscular Hemoglobin 28.4 pg (27.0-31.2); Mean Corpuscular Volume 92.3 fl (81-99); Mean Platelet Volume 6.4 fl (7.4-10.4); Monocytes # 0.3 K/mm3 (0.1-1.0); Monocytes % 6.9 % (1.7-9.3); Neutrophils # 2.7 K/mm3 (1.8-7.8); Neutrophils % 70.3 % (37.0-80.0); Platelet Count 367 K/mm3 (142-424); Red Cell Distribution Width 22.8 % (11.5-17.5); White Blood Count 3.9 K/mm3 (4.8-10.8)
[2023-12-17 11:21] LABS: Alanine Aminotransferase 19 U/L (12-78); Albumin Level 3.2 g/dl (3.5-5.0); Alkaline Phosphatase 107 U/L (38-126); Anion Gap 5.7 mEq/L (5-15); Aspartate Amino Transferase 39 U/L (14-36); Bilirubin,Total 0.3 mg/dl (0.2-1.3); Blood Urea Nitrogen 9 mg/dl (7-17); Calcium 8.9 mg/dl (8.4-10.2); Carbon Dioxide 29 mmol/L (22.0-30.0); Chloride 105 mmol/L (98-107); Creatinine Clearance Estimated 49 mL/min (50-200); Estimated Glomerular Filt Rate 100 ml/min (>60); GFR (African American) 121 ML/MIN (>60); Globulin 3.2 g/dL (1.3-3.2); Glucose 97 mg/dl (74-100); Potassium 3.7 mmoL/L (3.5-5.1); Sodium 136 mmol/L (136-145); Total Protein,Serum 6.4 g/dl (6.3-8.2)
--- NOTE | 2023-12-17 11:28 | PC.NURSE ---
1100- labs collected via ventipuncture in the left wrist
[2023-12-17 12:52] LABS: Iron 86 ug/dL (37-170)
[2023-12-17 13:06] LABS: Iron Saturation 100 % (15-55); Total Iron Binding Capacity < 60 ug/dL (265-497)
[2023-12-17 13:30] LABS: Ferritin 194 ng/ml (11.1-264)
== END 2023-12-17 11:05 | disposition home or self-care (01) ==
LOC: INF 10:53
PROVIDERS: PCP Family Medicine; Visit Provider Internal Medicine Medical Oncology
DX: C21.1 Malignant neoplasm of anal canal (principal)
CPT/HCPCS: 36415; 80053; 82728; 83540; 83550; 85025

== ENCOUNTER 2023-12-24 11:34 | Outpatient (CLI) | payer MEDICARE, MEDICAID, SELFPAY ==
[2023-12-24 11:38] VITALS: BMI 20.7
--- NOTE | 2023-12-24 11:40 | PC.NURSE ---
1140-collected labs via venipuncture stick in left forearm with butterfly needle;pt to d/c home.
[2023-12-24 11:49] LABS: Basophils % 0.8 % (0.1-2.0); Eosinophils # 0.3 K/mm3 (0.0-0.4); Eosinophils % 6.7 % (0.1-12.0); Hematocrit 32.4 % (37.0-47.0); Hemoglobin 10.1 g/dL (12.2-16.2); Lymphocytes # 0.8 K/mm3 (0.7-4.5); Lymphocytes % 18.8 % (10-50); Mean Corpuscular HGB Conc 31.1 g/dL (31.8-35.4); Mean Corpuscular Hemoglobin 29.3 pg (27.0-31.2); Mean Corpuscular Volume 94.4 fl (81-99); Mean Platelet Volume 6.5 fl (7.4-10.4); Monocytes # 0.4 K/mm3 (0.1-1.0); Monocytes % 10.1 % (1.7-9.3); Neutrophils # 2.5 K/mm3 (1.8-7.8); Neutrophils % 63.6 % (37.0-80.0); Platelet Count 336 K/mm3 (142-424); Red Blood Count 3.43 M/mm3 (4.20-5.40); Red Cell Distribution Width 24.1 % (11.5-17.5)
[2023-12-24 12:03] LABS: Alanine Aminotransferase 24 U/L (12-78); Albumin Level 3.4 g/dl (3.5-5.0); Albumin/Globulin Ratio 1.1 (1.1-1.8); Alkaline Phosphatase 91 U/L (38-126); Anion Gap 9.5 mEq/L (5-15); Aspartate Amino Transferase 37 U/L (14-36); Bilirubin,Total 0.3 mg/dl (0.2-1.3); Blood Urea Nitrogen 11 mg/dl (7-17); Calcium 8.9 mg/dl (8.4-10.2); Carbon Dioxide 25 mmol/L (22.0-30.0); Chloride 103 mmol/L (98-107); Creatinine Clearance Estimated 49 mL/min (50-200); Estimated Glomerular Filt Rate 84 ml/min (>60); GFR (African American) 102 ML/MIN (>60); Glucose 95 mg/dl (74-100); Potassium 3.5 mmoL/L (3.5-5.1); Sodium 134 mmol/L (136-145); Total Protein,Serum 6.4 g/dl (6.3-8.2)
== END 2023-12-24 11:45 | disposition home or self-care (01) ==
LOC: INF 11:35
PROVIDERS: Visit Provider Internal Medicine Medical Oncology
DX: C21.1 Malignant neoplasm of anal canal (principal)
CPT/HCPCS: 36415; 80053; 85025

== ENCOUNTER 2023-12-30 09:02 | Outpatient (CLI) | payer MEDICARE, MEDICAID, SELFPAY ==
[2023-12-30 09:24] VITALS: BMI 21.4
[2023-12-30 09:44] LABS: Basophils % 0.9 % (0.1-2.0); Eosinophils # 0.1 K/mm3 (0.0-0.4); Eosinophils % 3.5 % (0.1-12.0); Hematocrit 34.3 % (37.0-47.0); Hemoglobin 10.7 g/dL (12.2-16.2); Lymphocytes # 0.5 K/mm3 (0.7-4.5); Lymphocytes % 13.3 % (10-50); Mean Corpuscular HGB Conc 31.1 g/dL (31.8-35.4); Mean Corpuscular Hemoglobin 29.5 pg (27.0-31.2); Mean Corpuscular Volume 94.8 fl (81-99); Mean Platelet Volume 7.1 fl (7.4-10.4); Monocytes # 0.4 K/mm3 (0.1-1.0); Monocytes % 12.1 % (1.7-9.3); Neutrophils # 2.6 K/mm3 (1.8-7.8); Neutrophils % 70.1 % (37.0-80.0); Platelet Count 470 K/mm3 (142-424); Red Blood Count 3.62 M/mm3 (4.20-5.40); Red Cell Distribution Width 24.9 % (11.5-17.5); White Blood Count 3.6 K/mm3 (4.8-10.8)
[2023-12-30 09:50] LABS: Chloride 104 mmol/L (98-107); Potassium 3.4 mmoL/L (3.5-5.1); Sodium 134 mmol/L (136-145)
[2023-12-30 09:53] LABS: Alanine Aminotransferase 17 U/L (12-78); Albumin Level 3.5 g/dl (3.5-5.0); Albumin/Globulin Ratio 1.1 (1.1-1.8); Alkaline Phosphatase 90 U/L (38-126); Anion Gap 4.4 mEq/L (5-15); Aspartate Amino Transferase 30 U/L (14-36); Bilirubin,Total 0.3 mg/dl (0.2-1.3); Blood Urea Nitrogen 12 mg/dl (7-17); Carbon Dioxide 29 mmol/L (22.0-30.0); Creatinine Clearance Estimated 50 mL/min (50-200); Estimated Glomerular Filt Rate 84 ml/min (>60); GFR (African American) 102 ML/MIN (>60); Globulin 3.2 g/dL (1.3-3.2); Total Protein,Serum 6.7 g/dl (6.3-8.2)
[2023-12-30 09:54] LABS: Glucose 95 mg/dl (74-100)
[2023-12-30 11:08] LABS: Magnesium 2.1 mg/dl (1.6-2.3)
[2023-12-30 11:19] VITALS: BP 96/56; PULSE 82; RESP 18; TEMP 36.6; O2SAT 99
[2023-12-30] MEDS: DEXAMETHASONE 4MG TABLET 12 MG PO (11:19)
[2023-12-30] MEDS: 0.9 % SODIUM CHLORIDE 100 ML IV (11:21)
[2023-12-30] MEDS: SODIUM CHLORIDE 0.9% 10ML FLUSH SYRINGE 10 ML IV (11:45)
[2023-12-30 11:50] VITALS: BP 99/52; PULSE 84; RESP 18; O2SAT 99
[2023-12-30] MEDS: mitoMYcin 20MG/40ML VIAL 16 MG IV (11:50)
[2023-12-30 12:20] VITALS: BP 108/72; PULSE 89; RESP 18; O2SAT 99
[2023-12-30 12:50] VITALS: BP 105/69; PULSE 81; RESP 18; O2SAT 99
== END 2023-12-30 12:50 | disposition home or self-care (01) ==
LOC: INF 09:04
PROVIDERS: PCP Family Medicine; Visit Provider Internal Medicine Medical Oncology
DX: C21.1 Malignant neoplasm of anal canal (principal); Z79.899 Other long term (current) drug therapy
CPT/HCPCS: 80053; 83735; 85025; 96413; J9280

== ENCOUNTER 2024-01-15 11:04 | Outpatient (CLI) | payer MEDICARE, MEDICAID, SELFPAY ==
[2024-01-15 11:20] VITALS: BMI 21.8
[2024-01-15 11:36] LABS: Basophils % 0.6 % (0.1-2.0); Chloride 101 mmol/L (98-107); Eosinophils % 0.6 % (0.1-12.0); Hemoglobin 9.8 g/dL (12.2-16.2); Lymphocytes # 0.3 K/mm3 (0.7-4.5); Lymphocytes % 8.1 % (10-50); Mean Corpuscular HGB Conc 32.7 g/dL (31.8-35.4); Mean Corpuscular Hemoglobin 30.8 pg (27.0-31.2); Mean Corpuscular Volume 94.1 fl (81-99); Mean Platelet Volume 8.1 fl (7.4-10.4); Monocytes # 0.4 K/mm3 (0.1-1.0); Monocytes % 11.2 % (1.7-9.3); Neutrophils # 2.6 K/mm3 (1.8-7.8); Neutrophils % 79.5 % (37.0-80.0); Platelet Count 356 K/mm3 (142-424); Red Blood Count 3.18 M/mm3 (4.20-5.40); Red Cell Distribution Width 23.3 % (11.5-17.5); Sodium 133 mmol/L (136-145); White Blood Count 3.3 K/mm3 (4.8-10.8)
[2024-01-15 11:39] LABS: Alanine Aminotransferase 19 U/L (12-78); Albumin Level 3.2 g/dl (3.5-5.0); Albumin/Globulin Ratio 1.1 (1.1-1.8); Alkaline Phosphatase 82 U/L (38-126); Aspartate Amino Transferase 30 U/L (14-36); Bilirubin,Total 0.3 mg/dl (0.2-1.3); Blood Urea Nitrogen 6 mg/dl (7-17); Carbon Dioxide 29 mmol/L (22.0-30.0); Creatinine Clearance Estimated 51 mL/min (50-200); Estimated Glomerular Filt Rate 100 ml/min (>60); GFR (African American) 121 ML/MIN (>60); Globulin 2.9 g/dL (1.3-3.2); Total Protein,Serum 6.1 g/dl (6.3-8.2)
[2024-01-15 11:40] LABS: Calcium 8.7 mg/dl (8.4-10.2); Glucose 111 mg/dl (74-100)
== END 2024-01-15 11:30 | disposition home or self-care (01) ==
LOC: INF 11:05
PROVIDERS: PCP Family Medicine; Visit Provider Internal Medicine Medical Oncology
DX: C21.1 Malignant neoplasm of anal canal (principal)
CPT/HCPCS: 36415; 80053; 85025

== ENCOUNTER 2024-01-22 09:35 | Outpatient (CLI) | payer MEDICARE, MEDICAID, SELFPAY ==
[2024-01-22 09:37] VITALS: BMI 22.1
[2024-01-22 10:17] LABS: Chloride 99 mmol/L (98-107); Potassium 3.9 mmoL/L (3.5-5.1); Sodium 134 mmol/L (136-145)
[2024-01-22 10:20] LABS: Alanine Aminotransferase 21 U/L (12-78); Albumin Level 3.8 g/dl (3.5-5.0); Albumin/Globulin Ratio 1.1 (1.1-1.8); Alkaline Phosphatase 95 U/L (38-126); Anion Gap 11.9 mEq/L (5-15); Aspartate Amino Transferase 43 U/L (14-36); Bilirubin,Total 0.4 mg/dl (0.2-1.3); Blood Urea Nitrogen 7 mg/dl (7-17); Carbon Dioxide 27 mmol/L (22.0-30.0); Creatinine Clearance Estimated 48 mL/min (50-200); Estimated Glomerular Filt Rate 100 ml/min (>60); GFR (African American) 121 ML/MIN (>60); Globulin 3.6 g/dL (1.3-3.2); Total Protein,Serum 7.4 g/dl (6.3-8.2)
[2024-01-22 10:21] LABS: Calcium 9.2 mg/dl (8.4-10.2); Glucose 91 mg/dl (74-100)
--- NOTE | 2024-01-22 10:23 | PC.NURSE ---
0945-BLOOD DRAWN USING BUTTERFLY NEEDLE FROM LEFT FOREARM FOR CMP. TO CALL PT WITH RESULTS.
== END 2024-01-22 09:55 | disposition home or self-care (01) ==
LOC: INF 09:37
PROVIDERS: PCP Family Medicine; Visit Provider Internal Medicine Medical Oncology
DX: C21.1 Malignant neoplasm of anal canal (principal)
CPT/HCPCS: 36415; 80053

== ENCOUNTER 2024-02-01 09:52 | Outpatient (CLI) | payer MEDICARE, MEDICAID, SELFPAY ==
--- NOTE | 2024-02-01 09:59 | CT_ITS ---
FINAL REPORT TECHNIQUE: After the administration of intravenous contrast, axial images were obtained through the abdomen and pelvis by computed tomography. This study was performed with technique to keep radiation doses as low as reasonably achievable, (ALARA). Individualized dose reduction techniques using automated exposure control or adjustment of the MA and/or KV according to the patient's size were employed. CLINICAL HISTORY: ANAL CANCER FINDINGS: Abdomen: The lung bases demonstrate calcified granuloma in the right middle lobe. The liver is normal in size and attenuation. Gallbladder is present. The spleen is unremarkable. The adrenals are normal. The pancreas is unremarkable. The kidneys enhance appropriately. The aorta is normal in caliber. There is no free fluid or adenopathy. There is a small sliding-type hiatal hernia. Pelvis: The appendix is normal. Uterus lies midline. There is mild mucosal thickening of the sigmoid colon consistent with mild colitis. The urinary bladder is incompletely distended. There is no free fluid or adenopathy. IMPRESSION: Mild mucosal thickening of the sigmoid colon consistent with mild colitis. Reviewed, Interpreted and Dictated by Silvestre De Anda MD Transcribed by Yakelin Maldonado Authenticated and [facility]
[2024-02-01] MEDS: IOPAMIDOL-370 (76%);100ML BOTTLE 75 ML IV (10:29)
[2024-02-01] MEDS: SODIUM CHLORIDE 0.9% 10ML SYR (RAD ONLY) 10 ML IV (10:29)
== END 2024-02-01 23:59 | disposition home or self-care (01) ==
LOC: RAD 09:52
PROVIDERS: PCP Family Medicine; Visit Provider Internal Medicine Medical Oncology
DX: C21.1 Malignant neoplasm of anal canal (principal)
CPT/HCPCS: 74177; Q9967

== ENCOUNTER 2024-02-25 08:55 | Outpatient (CLI) | payer MEDICARE, MEDICAID, SELFPAY ==
[2024-02-25 09:03] VITALS: BMI 22.3
[2024-02-25 09:30] LABS: Basophils # 0.1 K/mm3 (0-0.2); Basophils % 1.7 % (0.1-2.0); Eosinophils # 0.2 K/mm3 (0.0-0.4); Eosinophils % 3.8 % (0.1-12.0); Hematocrit 32.8 % (37.0-47.0); Lymphocytes # 1.2 K/mm3 (0.7-4.5); Lymphocytes % 23.3 % (10-50); Mean Corpuscular HGB Conc 36.5 g/dL (31.8-35.4); Mean Corpuscular Hemoglobin 37.5 pg (27.0-31.2); Mean Corpuscular Volume 102.7 fl (81-99); Mean Platelet Volume 7.3 fl (7.4-10.4); Monocytes # 0.6 K/mm3 (0.1-1.0); Monocytes % 10.5 % (1.7-9.3); Neutrophils # 3.2 K/mm3 (1.8-7.8); Neutrophils % 60.7 % (37.0-80.0); Platelet Count 383 K/mm3 (142-424); Red Cell Distribution Width 17.1 % (11.5-17.5); White Blood Count 5.3 K/mm3 (4.8-10.8)
[2024-02-25 09:35] LABS: Chloride 101 mmol/L (98-107); Potassium 4.1 mmoL/L (3.5-5.1); Sodium 134 mmol/L (136-145)
[2024-02-25 09:37] LABS: Alanine Aminotransferase 25 U/L (12-78); Alkaline Phosphatase 67 U/L (38-126); Aspartate Amino Transferase 43 U/L (14-36); Bilirubin,Total 0.3 mg/dl (0.2-1.3); Blood Urea Nitrogen 8 mg/dl (7-17); Creatinine Clearance Estimated 48 mL/min (50-200); Estimated Glomerular Filt Rate 63 ml/min (>60); GFR (African American) 76 ML/MIN (>60)
[2024-02-25 09:38] LABS: Albumin Level 3.8 g/dl (3.5-5.0); Albumin/Globulin Ratio 1.2 (1.1-1.8); Anion Gap 10.1 mEq/L (5-15); Carbon Dioxide 27 mmol/L (22.0-30.0); Globulin 3.1 g/dL (1.3-3.2); Glucose 79 mg/dl (74-100); Total Protein,Serum 6.9 g/dl (6.3-8.2)
--- NOTE | 2024-02-25 10:50 | PC.NURSE ---
0920 CBC/CMP labs obtained via venipuncture to R hand with butterfly needle. Patient tolerated well. Patient has appointment with Dr. Dumont this am at 1000.
== END 2024-02-25 10:52 | disposition home or self-care (01) ==
LOC: INF 09:00
PROVIDERS: PCP Family Medicine; Visit Provider Internal Medicine Medical Oncology
DX: C21.1 Malignant neoplasm of anal canal (principal)
CPT/HCPCS: 36415; 80053; 85025

== ENCOUNTER 2024-04-05 07:42 | Outpatient (CLI) | payer MEDICARE, MEDICAID, SELFPAY ==
--- NOTE | 2024-04-05 07:46 | CT_ITS ---
FINAL REPORT TECHNIQUE: Noncontrast CT exam of the abdomen and pelvis. This study was performed with techniques to keep radiation doses as low as reasonably achievable (ALARA). Individualized dose reduction techniques using automated exposure control or adjustment of mA and/or kV according to the patient''s size were employed. CLINICAL HISTORY: Anal cancer COMPARISON: 02/01/2024 FINDINGS: Abdomen: Liver, spleen, pancreas and adrenal glands have a normal CT appearance in their limited unenhanced state. The gallbladder is present. The kidneys show no stone disease or obstruction. No obvious renal mass is present. No ureteral stones are present. There is no bowel obstruction or wall thickening. Borderline left periaortic adenopathy is stable and favored to be reactive. There is no ascites. Pelvis: There is wall thickening of the sigmoid colon which could be inflammatory or neoplastic. There is luminal narrowing of the proximal sigmoid colon. Urinary bladder is unremarkable. There is no pelvic adenopathy. The uterus and ovaries are unremarkable. There is no free fluid. IMPRESSION: No evidence of metastatic disease. Abnormal wall thickening of the proximal and mid sigmoid colon could be related to diverticulitis, muscular hypertrophy, or even primary neoplasm. Reviewed, Interpreted and Dictated by Sarbjit Vick MD Transcribed by Sheridan Kamara Authenticated and [facility]
--- NOTE | 2024-04-05 07:46 | CT_ITS ---
FINAL REPORT CLINICAL HISTORY: Anal cancer, follow-up FINDINGS: CT CHEST WITH CONTRAST TECHNIQUE: After the administration of intravenous contrast, axial images through the chest were performed by computed tomography. This study was performed with techniques to keep radiation doses as low as reasonably achievable, (ALARA). Individualized dose reduction techniques using automated exposure control or adjustment of mA and/or kV according to the patient's size were employed. FINDINGS: There is a right thyroid mass measuring 19 x 11 mm. There is long segment wall thickening of the distal esophagus probably related to esophagitis. There is no axillary adenopathy. There is no hilar or mediastinal adenopathy. The heart size is normal. There is no pericardial or pleural effusion. There is no suspicious pulmonary nodule. IMPRESSION: 1. No evidence of metastatic disease 2. Incidental right thyroid mass. Consider dedicated thyroid ultrasound. Reviewed, Interpreted and Dictated by Sarbjit Vick MD Transcribed by Sheridan Kamara Authenticated and [facility]
[2024-04-05 08:18] LABS: Blood Urea Nitrogen 14 mg/dl (7-17); Estimated Glomerular Filt Rate 55 ml/min (>60); GFR (African American) 67 ML/MIN (>60)
== END 2024-04-05 23:59 | disposition home or self-care (01) ==
LOC: RAD 07:43
PROVIDERS: PCP Family Medicine; Visit Provider Internal Medicine Medical Oncology
DX: C21.1 Malignant neoplasm of anal canal (principal)
CPT/HCPCS: 36415; 71260; 74177; 82565; 84520; Q9967

== ENCOUNTER 2024-04-20 14:17 | Outpatient (CLI) | payer MEDICARE, MEDICAID, SELFPAY ==
[2024-04-20 14:21] VITALS: BMI 24.3
[2024-04-20 14:43] LABS: Basophils % 0.7 % (0.1-2.0); Eosinophils # 0.1 K/mm3 (0.0-0.4); Eosinophils % 1.2 % (0.1-12.0); Hematocrit 37.6 % (37.0-47.0); Hemoglobin 12.2 g/dL (12.2-16.2); Lymphocytes % 14.9 % (10-50); Mean Corpuscular HGB Conc 32.4 g/dL (31.8-35.4); Mean Corpuscular Hemoglobin 31.3 pg (27.0-31.2); Mean Corpuscular Volume 96.5 fl (81-99); Mean Platelet Volume 7.4 fl (7.4-10.4); Monocytes # 0.4 K/mm3 (0.1-1.0); Monocytes % 5.4 % (1.7-9.3); Neutrophils # 5.1 K/mm3 (1.8-7.8); Neutrophils % 77.8 % (37.0-80.0); Platelet Count 496 K/mm3 (142-424); Red Cell Distribution Width 14.6 % (11.5-17.5); White Blood Count 6.5 K/mm3 (4.8-10.8)
[2024-04-20 15:18] LABS: Alanine Aminotransferase 24 U/L (12-78); Albumin Level 4.2 g/dl (3.5-5.0); Albumin/Globulin Ratio 1.3 (1.1-1.8); Alkaline Phosphatase 63 U/L (38-126); Anion Gap 12.5 mEq/L (5-15); Aspartate Amino Transferase 36 U/L (14-36); Bilirubin,Total 0.5 mg/dl (0.2-1.3); Blood Urea Nitrogen 13 mg/dl (7-17); Carbon Dioxide 24 mmol/L (22.0-30.0); Chloride 100 mmol/L (98-107); Creatinine Clearance Estimated 53 mL/min (50-200); Estimated Glomerular Filt Rate 84 ml/min (>60); GFR (African American) 101 ML/MIN (>60); Globulin 3.3 g/dL (1.3-3.2); Glucose 106 mg/dl (74-100); Potassium 3.5 mmoL/L (3.5-5.1); Sodium 133 mmol/L (136-145); Total Protein,Serum 7.5 g/dl (6.3-8.2)
== END 2024-04-20 14:35 | disposition home or self-care (01) ==
LOC: INF 14:18
PROVIDERS: PCP Family Medicine; Visit Provider Internal Medicine Medical Oncology
DX: C21.1 Malignant neoplasm of anal canal (principal)
CPT/HCPCS: 36415; 80053; 85025

== ENCOUNTER 2024-09-21 17:38 | Observation (INO) | payer MEDICARE, SELFPAY ==
--- NOTE | 2024-09-21 17:37 | ECG_ITS ---
APPROVED REPORT Exam: Resting ECG HR:86 bpm ECG Measurements Heart Rate 86 AXES WI 155 P 62 QRSd 73 QRS 67 QT 366 T 52 QTc 410 Conclusion SINUS RHYTHM NONSPECIFIC ST & T-WAVE ABNORMALITY BORDERLINE ECG UNCONFIRMED REPORT Electronically signed by : BIENVENIDO TY, 09/23/2024 05:43:03
[2024-09-21 17:38] VITALS: BP 126/67; PULSE 98; RESP 17; TEMP 36.6; O2SAT 100; BMI 19.7
[2024-09-21 18:00] VITALS: BP 110/61; PULSE 90; RESP 28; O2SAT 100
--- NOTE | 2024-09-21 18:09 | XR_ITS ---
PROCEDURE INFORMATION: Exam: XR Chest Exam date and time: 09/21/2024 6:19 PM Age: 64 years old Clinical indication: Shortness of breath; Additional info: SOA, congestion TECHNIQUE: Imaging protocol: Radiologic exam of the chest. Views: 1 view. COMPARISON: CT CHEST W CON 04/05/2024 9:12 AM FINDINGS: Lungs: No evidence of acute pulmonary disease or infiltrates Pleural spaces: No large effusion or pneumothorax. Heart/Mediastinum: Stable cardiac and mediastinal contours. Vasculature: There are calcifications of the aortic arch. Bones/joints: No evidence of acute osseous abnormalities within the visualized portions of the thoracic spine and ribs. Osseous structures appear appropriate for patient age. IMPRESSION: No dense parenchymal consolidation, pleural effusion, or pneumothorax.
--- NOTE | 2024-09-21 18:12 | ED_ITS ---
Discharge Plan Disposition Patient Disposition: Home, Self-Care Condition: Good Prescriptions Prescriptions: No Action loperamide 2 mg capsule 2 mg PO DAILY famotidine 40 mg tablet See Rx Instructions .ROUTE .COMPLEX Qty: 60 10RF Dose Instruction: TAKE 1 TABLET BY MOUTH TWICE DAILY Rx Instructions: TAKE 1 TABLET BY MOUTH TWICE DAILY hydrocortisone [Anusol-HC] 2.5 % cream with perineal applicator 1 applic MI QD-BID PRN (Reason: hemorrhoids) Qty: 30 5RF pantoprazole [Protonix] 40 mg tablet,delayed release (DR/EC) 40 mg PO DAILY Qty: 90 3RF prochlorperazine maleate 10 mg tablet See Rx Instructions .ROUTE .COMPLEX Qty: 30 2RF Dose Instruction: TAKE 1 TABLET BY MOUTH EVERY SIX HOURS NEEDED Rx Instructions: TAKE 1 TABLET BY MOUTH EVERY SIX HOURS NEEDED cetirizine 10 mg tablet See Rx Instructions .ROUTE .COMPLEX Qty: 30 1RF Dose Instruction: TAKE 1 TABLET ORALLY DAILY FOR ALLERGIES Rx Instructions: TAKE 1 TABLET ORALLY DAILY FOR ALLERGIES ondansetron HCl 8 mg tablet See Rx Instructions .ROUTE .COMPLEX Qty: 30 0RF Dose Instruction: TAKE 1 TABLET BY MOUTH EVERY 8 HOURS NEEDED FOR NAUSEA Rx Instructions: TAKE 1 TABLET BY MOUTH EVERY 8 HOURS NEEDED FOR NAUSEA hydrocodone-acetaminophen 7.5-325 mg tablet See Rx Instructions PO .COMPLEX PRN (Reason: pain) Qty: 180 0RF Rx Instructions: 1-2 tid prn pain carries diagnosis of cancer dose change Referrals Follow up/Referrals: Bayron Loo MD [Primary Care Provider] - See instructions (Keep appointment on September 23) Activity Restrictions/Add. Instructions Additional Instructions/Restrictions: Return to the emergency department for any worsening signs or symptoms, recommend symptomatic/supportive care for URI ibuprofen Tylenol [id number] cold and flu medicines good intake with fluids. Clinical Impressions Clinical Impression: URI (upper respiratory infection), Generalized weakness, Anemia due to poor nutrition Instructions Patient Instructions: DI for Viral Upper Respiratory Infection -- Adult, DI for Muscle Weakness Print Language Print Language: Yakut Discharge ED Provider: Chip Dobbins HPI <JONATHAN Tellez - Last Filed: 09/21/24 22:09> General Chief Complaint: Shortness of Breath/Dyspnea Stated Complaint: SOA Time Seen by Provider: 01/08/25 17:57 Mode of Arrival: EMS Source of Information: Patient and EMS Limitations: No Limitations Description of Symptoms (Recalled from ER Triage Doc. by RN): PT REPORTS SHORTNESS OF BREATH FOR 2-3 DAYS, WORSE TODAY. REPORTS RUNNY NOSE, BODYACHES, WEAKNESS AND FALLING. DENIES COUGH AND FEVER. DOES NOT WEAR HOME O2. 100% ON ROOM AIR History of Present Illness HPI narrative: 64-year-old female presents emerged part via EMS shortness of air and nasal congestion, patient states that the last 2 to 3 days she has noticed some nasal congestion, shortness of breath, she admits to subjective fever and chills, denies any chest pain, headache, nausea, vomiting constipation diarrhea, no hematuria melena hematochezia or hematemesis, no abdominal pain, she denies any recent sick contacts. 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 Patient triage vitals are unremarkable, patient is 100% on SpO2 monitor at room air, no tachycardia, no tachypnea, she denies any tobacco use, no drug use, no alcohol use. Nursing staff was able to speak with the patient's son at the bedside prior to the patient's son leaving. Unfortunately I was not able to personally speak with the patient's son., Patient's son states that the patient has generalized weakness as well, and has not been ambulating for quite some time and lives in a camper in the front yard , When asking the patient about her generalized weakness, she states has been going on for some time, she has to be carried into the house by at least 2 people , she endorses some falls over the last several days due to difficulty ambulating with generalized weakness when asked about this, patient states that her right knee gives out on her at times she has been followed up with orthopedic provider with knee osteoarthritis for this upon chart review.. Denies any pain in the upper or lower extremities cervical thoracic or lumbar spine denies striking head or any LOC, denies any urinary bladder or bowel dysfunction, denies any saddle anesthesia,. Also per nursing staff, the patient was covered in bedbugs and had to be taken to the [facility] room. Related Data Home Medications ?Medication ?Instructions ?Recorded ?Confirmed loperamide 2 mg capsule 2 mg PO DAILY 04/20/24 04/20/24 Previous Rx's ?Medication ?Instructions ?Recorded famotidine 40 mg tablet See Rx Instructions .Route 12/04/23 .COMPLEX #60 tabs hydrocortisone 2.5 % topical cream 1 applic MI QD-BID PRN hemorrhoids 12/04/23 with perineal applicator #30 grams (Anusol-HC) pantoprazole 40 mg tablet,delayed 40 mg PO DAILY #90 tabs 12/04/23 release (Protonix) prochlorperazine maleate 10 mg See Rx Instructions .Route 03/22/24 tablet .COMPLEX #30 tabs cetirizine 10 mg tablet See Rx Instructions .Route 04/18/24 .COMPLEX #30 tabs ondansetron HCl 8 mg tablet See Rx Instructions .Route 05/19/24 .COMPLEX #30 tabs hydrocodone 7.5 mg-acetaminophen See Rx Instructions PO .COMPLEX 08/03/24 325 mg tablet PRN pain #180 tabs Allergies Allergy/AdvReac Type Severity Reaction Status Date / Time Penicillins Allergy Severe S-SWELLS-OR Verified 04/20/24 13:45 AL/THROAT acetaminophen (From Percocet) Allergy Intermediate I-HIVES Verified 04/20/24 13:45 aspirin (From Percodan) Allergy Intermediate I-HIVES; Verified 04/20/24 13:45 HALLUCINATIONS codeine Allergy Intermediate I-RASH Verified 04/20/24 13:45 egg (From EGGS (FOOD/DRUG)) Allergy Intermediate I-RASH Verified 04/20/24 13:45 morphine Allergy Intermediate I-RASH Verified 04/20/24 13:45 oxycodone (From Percodan) Allergy Intermediate I-HIVES; Verified 04/20/24 13:45 HALLUCINATIONS venom-honey bee (bee venom Allergy Intermediate I-HIVES Verified 04/20/24 13:45 (honey bee)) etodolac Allergy Verified 04/20/24 13:45 gabapentin Allergy Verified 04/20/24 13:45 duloxetine AdvReac Verified 04/20/24 13:45 fluoxetine AdvReac Verified 04/20/24 13:45 FLY Allergy Unknown I-HIVES Uncoded 04/20/24 13:45 From EGGS (FOOD/DRUG) Allergy Unknown I-RASH Uncoded 04/20/24 13:45 PRO-LIQD Allergy Unknown I-HIVES Uncoded 04/20/24 13:45 slacone Allergy Uncoded 04/20/24 13:45 PFSH <JONATHAN Tellez - Last Filed: 09/21/24 22:09> PFS Disclaimer: The information contained in this section may have been updated after the patient was seen, as this information can be updated by other users. Medical History Anal squamous cell carcinoma Pedal edema Medical clearance for incarceration Surgical History History of tonsillectomy Hx of local excision of skin lesion Hx of esophagogastroduodenoscopy Family History Other Family history of TIAs Family history of cancer Social History Smoking Status: Never smoker alcohol intake: current alcohol intake frequency: holidays/special occasions only substance use type: denies use current occupational status: retired Travel in the last 8 weeks: None household members: other number of children: 2 Have you lived/traveled outside [place] in past 30 days?: No Contact w/someone who lives/traveled outside US past 30 days?: No Exposure to someone with infectious disease in past 14 days?: No Do you have a fever (greater than 100.4 F or 38 C)?: No Have you tested positive for COVID-19: No Exposed to someone with COVID-19 in past 14 days?: No Do you have a sore throat?: No Do you have a cough?: No Do you have any weakness?: No Do you have any diarrhea?: No Are you experiencing any unusual bleeding?: No Do you have any muscle aches/pain?: No Do you have any abdominal pain?: No Are you experiencing loss of taste or smell?: No Other Medical History Have you received the Flu Vaccine for this season: No Have you received the Pneumonia Vaccine: No <JONATHAN Tellez - Last Filed: 09/21/24 22:09> ROS Obtained: Yes All systems reviewed & no additional complaints except as documented Physical Exam <JONATHAN Tellez - Last Filed: 09/21/24 22:09> General General appearance: alert and in no apparent distress Comment: Somewhat pale appearing Head Head exam: atraumatic and normocephalic Eye Eye exam: Present PERRL and EOMI ENT ENT exam: Present mucous membranes moist Neck Neck exam: Present normal inspection Chest Chest inspection: Present normal inspection and symmetric chest wall rise Respiratory Respiratory exam: Present normal lung sounds bilaterally; Absent respiratory distress, wheezes, stridor or accessory muscle use Cardiovascular Cardiovascular exam: Present regular rate and normal rhythm Abdominal Exam Abdominal exam: Present soft; Absent tenderness, guarding, rebound or rigidity Extremities Exam Extremities exam: Present normal inspection Neurological Exam Neurological exam: Present alert and oriented X3 Psychiatric Psychiatric exam: Present normal affect Skin Skin exam: Present warm, dry and pallor HEART Score <JONATHAN Tellez - Last Filed: 09/21/24 22:09> HEART Score HEART Score assessment performed?: No Critical Care <JONATHAN Tellez - Last Filed: 09/21/24 22:09> Critical Care Time Critical Care Time: No Medical Decision Making <JONATHAN Tellez - Last Filed: 09/21/24 22:09> Medical Records Medical records reviewed: Yes I reviewed the patient's medical records. Quinn Inquiry Pt receiving controlled substance: No Quinn was queried for this patient: No Vital Signs Vital Signs: 09/21/24 17:38 09/21/24 18:00 Temperature 97.8 F Temperature Source Oral Pulse Rate 90 Pulse Rate [Apical] 98 H Respiratory Rate 17 28 H Blood Pressure 110/61 Blood Pressure [Right Arm] 126/67 Blood Pressure Mean [Right Arm] 86 Blood Pressure Source [Right Arm] Automatic Cuff Blood Pressure Position [Right Arm] Sitting 02 Sat by Pulse Oximetry 100 100 Oxygen Delivery Method Room Air Lab Data Labs: Lab Results 09/21/24 18:31: WBC 7.1, RBC 3.50 L, Hgb 7.2 L, Hct 24.2 L, MCV 69.1 L, MCH 20.6 L, MCHC 29.8 L, RDW 18.1 H, Plt Count 649 H, MPV 8.8, Neut % (Auto) 66.0, Lymph % (Auto) 20.9, [place] % (Auto) 12.3 H, Eos % (Auto) 0.1, Baso % (Auto) 0.4, Neut # (Auto) 4.7, Lymph # (Auto) 1.5, [place] # (Auto) 0.9, Eos # (Auto) 0.0, Baso # (Auto) 0.0, Sodium 135 L, Potassium 4.0, Chloride 102, Carbon Dioxide 21 L, A nion Gap 16.0 H, BUN 10, Creatinine 0.60, Estimated Creat Clear 46, Estimated GFR 100, Est GFR ( Amer) 121, Glucose 102 H, Calcium 8.6, Magnesium 2.1, Total Bilirubin 0.4, AST 39 H, ALT 19, Alkaline Phosphatase 139 H, Troponin I < 0.01, NT-Pro-B Natriuret Pep 1120 H, Total Protein 6.9, Albumin 3.5, Globulin 3.4 H, Albumin/Globulin Ratio 1.0 L, Lipase 147, Plasma/Serum Alcohol < 10, HIV Ag/Ab Combo Qual Negative 09/21/24 18:32: SARS-CoV-2 (PCR) Not detected, Influenza A Untype (PCR) Not detected, Influenza Type B (PCR) Not detected 09/21/24 22:00: Troponin I < 0.01 09/21/24 18:31 09/21/24 18:31 Response Orders (Tests/Meds): ORDERS Category Date Time Status XR chest portable Stat Exams 09/21/24 18:09 Completed Complete Blood Count Auto Diff Stat Lab 09/21/24 18:31 Completed Comprehensive Metabolic Panel Stat Lab 09/21/24 18:31 Completed Drug Screen,Urine Stat Lab 09/21/24 18:09 Ordered Ethanol [Ethyl Alcohol] Stat Lab 09/21/24 18:31 Completed HIV Combo Routine Lab 09/21/24 18:31 Completed Hepatitis C Ab Qual. W/ RFX Routine Lab 09/21/24 22:00 Received Lipase Stat Lab 09/21/24 18:31 Completed Magnesium Stat Lab 09/21/24 18:31 Completed NT Pro Brain Natriuretic Pep. Stat Lab 09/21/24 18:31 Completed Rapid PCR Covid and Flu A/B Stat Lab 09/21/24 18:32 Completed Troponin I Q3H Lab 09/21/24 22:00 Completed Troponin I Q3H Lab 09/22/24 00:30 Ordered Troponin I Stat Lab 09/21/24 18:31 Completed Urinalysis and Microscopic Stat Lab 09/21/24 18:10 Ordered MDM Narrative Medical Decision Narrative: 64-year-old female presents to the emergency department with congestion shortness of breath, differential diagnose, not limited to, cardiac arrhythmia, electrolyte disturbance, ACS, acute URI, pneumonia, bronchitis, COVID-19, influenza. I discussed patient case with attending physician saw and examined the patient as well. Will obtain basic laboratory studies UDS, troponin, proBNP urinalysis ethyl alcohol level lipase magnesium level, chest x-ray, PCR COVID and flu. Reviewed the patient's EKG, NSR 86 bpm parable within normal limits, QT interval within normal limits there is no STEMI. CBC notable for anemia which appears chronic with a hemoglobin of 7.2, hematocrit is 24.2, MCV is decreased at 69.1 CMP is unremarkable. proBNP is elevated at 1120, hypoalbuminemia at 1, lipase within normal limits. I reviewed the patient's chest x-ray along the corresponding radiologic report, there is no acute finding. Troponin within normal limits. alcohol level within normal limits Influenza A- is negative COVID-19 is negative influenza B negative. I attempted to call this patient's next of kin son (Miles Waller) at approximately 9:45 PM there was no answer. I along with the attending physician discussed this with the patient at the bedside, patient has had generalized weakness and difficulty ambulating due to her right knee osteoarthritis, she can move extremities to command, has global weakness but no focal deficit, her generalized weakness does appear chronic could be in the setting of knee osteoarthritis, patient does admit to being able to ambulate around the camper , but cannot get up the camper steps without assistance. Patient has slated follow-up with her primary care provider in 2 days I advised her to keep this appointment for viral URI generalized weakness as well as anemia which she is being followed up on by her other providers. Patient voiced understanding agree with current treatment plan/discharge plan strict ED return precautions were discussed with the patient the bedside patient voiced understanding <Chip Dobbins MD - Last Filed: 09/21/24 23:07> Vital Signs Vital Signs: 09/21/24 17:38 09/21/24 18:00 Temperature 97.8 F Temperature Source Oral Pulse Rate 90 Pulse Rate [Apical] 98 H Respiratory Rate 17 28 H Blood Pressure 110/61 Blood Pressure [Right Arm] 126/67 Blood Pressure Mean [Right Arm] 86 Blood Pressure Source [Right Arm] Automatic Cuff Blood Pressure Position [Right Arm] Sitting 02 Sat by Pulse Oximetry 100 100 Oxygen Delivery Method Room Air Lab Data Labs: Lab Results 09/21/24 18:31: WBC 7.1, RBC 3.50 L, Hgb 7.2 L, Hct 24.2 L, MCV 69.1 L, MCH 20.6 L, MCHC 29.8 L, RDW 18.1 H, Plt Count 649 H, MPV 8.8, Neut % (Auto) 66.0, Lymph % (Auto) 20.9, [place] % (Auto) 12.3 H, Eos % (Auto) 0.1, Baso % (Auto) 0.4, Neut # (Auto) 4.7, Lymph # (Auto) 1.5, [place] # (Auto) 0.9, Eos # (Auto) 0.0, Baso # (Auto) 0.0, Sodium 135 L, Potassium 4.0, Chloride 102, Carbon Dioxide 21 L, A nion Gap 16.0 H, BUN 10, Creatinine 0.60, Estimated Creat Clear 46, Estimated GFR 100, Est GFR ( Amer) 121, Glucose 102 H, Calcium 8.6, Magnesium 2.1, Total Bilirubin 0.4, AST 39 H, ALT 19, Alkaline Phosphatase 139 H, Troponin I < 0.01, NT-Pro-B Natriuret Pep 1120 H, Total Protein 6.9, Albumin 3.5, Globulin 3.4 H, Albumin/Globulin Ratio 1.0 L, Lipase 147, Plasma/Serum Alcohol < 10, HIV Ag/Ab Combo Qual Negative 09/21/24 18:32: SARS-CoV-2 (PCR) Not detected, Influenza A Untype (PCR) Not detected, Influenza Type B (PCR) Not detected 09/21/24 22:00: Troponin I < 0.01 Response Orders (Tests/Meds): ORDERS Category Date Time Status XR chest portable Stat Exams 09/21/24 18:09 Completed Complete Blood Count Auto Diff Stat Lab 09/21/24 18:31 Completed Comprehensive Metabolic Panel Stat Lab 09/21/24 18:31 Completed Drug Screen,Urine Stat Lab 09/21/24 18:09 Ordered Ethanol [Ethyl Alcohol] Stat Lab 09/21/24 18:31 Completed HIV Combo Routine Lab 09/21/24 18:31 Completed Hepatitis C Ab Qual. W/ RFX Routine Lab 09/21/24 22:00 Received Lipase Stat Lab 09/21/24 18:31 Completed Magnesium Stat Lab 09/21/24 18:31 Completed NT Pro Brain Natriuretic Pep. Stat Lab 09/21/24 18:31 Completed Rapid PCR Covid and Flu A/B Stat Lab 09/21/24 18:32 Completed Troponin I Q3H Lab 09/21/24 22:00 Completed Troponin I Q3H Lab 09/22/24 00:30 Ordered Troponin I Stat Lab 09/21/24 18:31 Completed Urinalysis and Microscopic Stat Lab 09/21/24 18:10 Ordered MDM Narrative Medical Decision Narrative: 64-year-old female presents to the emergency department with congestion shortness of breath, differential diagnose, not limited to, cardiac arrhythmia, electrolyte disturbance, ACS, acute URI, pneumonia, bronchitis, COVID-19, influenza. I discussed patient case with attending physician Dr.Kayser castillo and examined the patient as well. Will obtain basic laboratory studies UDS, troponin, proBNP urinalysis ethyl alcohol level lipase magnesium level, chest x-ray, PCR COVID and flu. Reviewed the patient's EKG, NSR 86 bpm parable within normal limits, QT interval within normal limits there is no STEMI. CBC notable for anemia which appears chronic with a hemoglobin of 7.2, hematocrit is 24.2, MCV is decreased at 69.1 CMP is unremarkable. proBNP is elevated at 1120, hypoalbuminemia at 1, lipase within normal limits. I reviewed the patient's chest x-ray along the corresponding radiologic report, there is no acute finding. Troponin within normal limits. alcohol level within normal limits Influenza A- is negative COVID-19 is negative influenza B negative. I attempted to call this patient's next of kin son (Miles Waller) at approximately 9:45 PM there was no answer. I along with the attending physician discussed this with the patient at the bedside, patient has had generalized weakness and difficulty ambulating due to her right knee osteoarthritis, she can move extremities to command, has global weakness but no focal deficit, her generalized weakness does appear chronic could be in the setting of knee osteoarthritis, patient does admit to being able to ambulate around the camper , but cannot get up the camper steps without assistance. Patient has slated follow-up with her primary care provider in 2 days I advised her to keep this appointment for viral URI generalized weakness as well as anemia which she is being followed up on by her other providers. Patient voiced understanding agree with current treatment plan/discharge plan strict ED return precautions were discussed with the patient the bedside patient voiced understanding I was consulted by the SO, and we discussed the complexity of the problems being addressed.I approved the treatment and management plan for this patient?s care in the Emergency Department, thus performing a substantive portion of the medical decision making.Signed, Chip Dobbins MD
--- NOTE | 2024-09-21 18:21 | PC.NURSE ---
XR AT BEDSIDE
[2024-09-21 18:40] LABS: Coronavirus 19, PCR Not Detected (NotDetected); Influenza A, PCR Not Detected (NotDetected); Influenza B, PCR Not Detected (NotDetected)
[2024-09-21 18:43] LABS: Basophils % 0.4 % (0.1-2.0); Eosinophils % 0.1 % (0.1-12.0); Hematocrit 24.2 % (37.0-47.0); Hemoglobin 7.2 g/dL (12.2-16.2); Lymphocytes # 1.5 K/mm3 (0.7-4.5); Lymphocytes % 20.9 % (10-50); Mean Corpuscular HGB Conc 29.8 g/dL (31.8-35.4); Mean Corpuscular Hemoglobin 20.6 pg (27.0-31.2); Mean Corpuscular Volume 69.1 fl (81-99); Mean Platelet Volume 8.8 fl (7.4-10.4); Monocytes # 0.9 K/mm3 (0.1-1.0); Monocytes % 12.3 % (1.7-9.3); Neutrophils # 4.7 K/mm3 (1.8-7.8); Platelet Count 649 K/mm3 (142-424); Red Cell Distribution Width 18.1 % (11.5-17.5); White Blood Count 7.1 K/mm3 (4.8-10.8)
[2024-09-21 18:49] LABS: Albumin Level 3.5 g/dl (3.5-5.0); Chloride 102 mmol/L (98-107); Sodium 135 mmol/L (136-145)
[2024-09-21 18:52] LABS: Alanine Aminotransferase 19 U/L (12-78); Alkaline Phosphatase 139 U/L (38-126); Aspartate Amino Transferase 39 U/L (14-36); Bilirubin,Total 0.4 mg/dl (0.2-1.3); Blood Urea Nitrogen 10 mg/dl (7-17); Carbon Dioxide 21 mmol/L (22.0-30.0); Creatinine Clearance Estimated 46 mL/min (50-200); Estimated Glomerular Filt Rate 100 ml/min (>60); GFR (African American) 121 ML/MIN (>60); Globulin 3.4 g/dL (1.3-3.2); Lipase 147 U/L (23-300); Magnesium 2.1 mg/dl (1.6-2.3); Total Protein,Serum 6.9 g/dl (6.3-8.2)
[2024-09-21 18:53] LABS: Calcium 8.6 mg/dl (8.4-10.2); Glucose 102 mg/dl (74-100)
--- NOTE | 2024-09-21 18:58 | PC.NURSE ---
We found a bedbug on the patient's bed. We sent the bug up in a specimen cup to the lab to be confirmed. Patient has been De[facility]ed.
[2024-09-21 19:03] LABS: NT Pro Brain Natriuretic Pep. 1120 pg/mL (0-125)
[2024-09-21 19:33] LABS: Troponin I < 0.01 ng/ml (0.00-0.034)
[2024-09-21 20:03] LABS: Ethyl Alcohol < 10 mg/dl (0-10)
[2024-09-21 21:17] LABS: HIV Combo NEGATIVE (Negative)
--- NOTE | 2024-09-21 22:24 | PC.NURSE ---
speaking w EMS about transfer at this time.
[2024-09-21 22:46] LABS: Troponin I < 0.01 ng/ml (0.00-0.034)
[2024-09-21 23:22] LABS: Hepatitis C Ab Qual. W/ RFX NEGATIVE (Negative)
[2024-09-21 23:55] VITALS: PULSE 94; RESP 20; O2SAT 100
--- NOTE | 2024-09-21 23:59 | P.HP_ITS ---
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 She states she has been having nasal congestion, rhinorrhea for the past several days that is making her hard to breathe through the nose. Patient was getting ready to be discharged, however she admitted that she is not able to ambulate well. She endorses lower extremity weakness ongoing for about a year due to right knee pain and that she has had recurrent falls at home. She lives in a camper, and moved out of her big house as it was too big to walk around. She states her son helps with groceries and other errands however not so much recently has he has a new girlfriend. In fact, multiple attempts were made to contact son by ED to no avail. Workup in the ED significant for hemoglobin 7.2, MCV 69.1, AGAP 16, BNP 1120, CXR without acute findings. Case discussed with ED provider and decision was made to admit patient for lower extremity weakness, physical deconditioning, inability to take care of herself at home, acute on chronic anemia. [facility] Disclaimer: The information contained in this section may have been updated after the patient was seen, as this information can be updated by other users. Medical History Anal squamous cell carcinoma Pedal edema Medical clearance for incarceration Surgical History History of tonsillectomy Hx of local excision of skin lesion Hx of esophagogastroduodenoscopy Family History (Updated 09/22/24 @ 01:05 by Penelope Hernandez RN) Other CREST syndrome Family history of TIAs Family history of cancer Social History (Updated 09/22/24 @ 01:05 by Penelope Hernandez RN) Smoking Status: Never smoker alcohol intake: current alcohol intake frequency: holidays/special occasions only substance use type: denies use current occupational status: retired Travel in the last 8 weeks: None household members: other number of children: 2 Have you lived/traveled outside [place] in past 30 days?: No Contact w/someone who lives/traveled outside US past 30 days?: No Exposure to someone with infectious disease in past 14 days?: No Do you have a fever (greater than 100.4 F or 38 C)?: No Have you tested positive for COVID-19: No Exposed to someone with COVID-19 in past 14 days?: No Do you have a sore throat?: No Do you have a cough?: No Do you have any weakness?: No Do you have any diarrhea?: No Are you experiencing any unusual bleeding?: No Do you have any muscle aches/pain?: No Do you have any abdominal pain?: No Are you experiencing loss of taste or smell?: No Other Medical History Have you received the Flu Vaccine for this season: No Have you received the Pneumonia Vaccine: No Meds Home Medications and Allergies Home Medications ?Medication ?Instructions ?Recorded ?Confirmed ?Type famotidine 40 mg tablet See Rx Instructions .Route 12/04/23 09/22/24 Rx .COMPLEX #60 tabs hydrocortisone 2.5 % topical cream 1 applic OR QD-BID PRN hemorrhoids 12/04/23 09/22/24 Rx with perineal applicator #30 grams (Anusol-HC) cetirizine 10 mg tablet See Rx Instructions .Route 04/18/24 09/22/24 Rx .COMPLEX #30 tabs hydrocodone 7.5 mg-acetaminophen See Rx Instructions PO .COMPLEX 08/03/24 09/22/24 Rx 325 mg tablet PRN pain #180 tabs alprazolam 1 mg tablet 1 mg PO TID 09/22/24 09/22/24 History New Prescriptions to Start Prescriptions: Allergies Allergy/AdvReac Type Severity Reaction Status Date / Time Penicillins Allergy Severe S-SWELLS-OR Verified 04/20/24 13:45 AL/THROAT acetaminophen (From Percocet) Allergy Intermediate I-HIVES Verified 04/20/24 13:45 aspirin (From Percodan) Allergy Intermediate I-HIVES; Verified 04/20/24 13:45 HALLUCINATIONS codeine Allergy Intermediate I-RASH Verified 04/20/24 13:45 egg (From EGGS (FOOD/DRUG)) Allergy Intermediate I-RASH Verified 04/20/24 13:45 morphine Allergy Intermediate I-RASH Verified 04/20/24 13:45 oxycodone (From Percodan) Allergy Intermediate I-HIVES; Verified 04/20/24 13:45 HALLUCINATIONS venom-honey bee (bee venom Allergy Intermediate I-HIVES Verified 04/20/24 13:45 (honey bee)) etodolac Allergy Verified 04/20/24 13:45 gabapentin Allergy Verified 04/20/24 13:45 duloxetine AdvReac Verified 04/20/24 13:45 fluoxetine AdvReac Verified 04/20/24 13:45 FLY Allergy Unknown I-HIVES Uncoded 04/20/24 13:45 From EGGS (FOOD/DRUG) Allergy Unknown I-RASH Uncoded 04/20/24 13:45 PRO-LIQD Allergy Unknown I-HIVES Uncoded 04/20/24 13:45 slacone Allergy Uncoded 04/20/24 13:45 Exam Data for Last 24 hours Vital signs and Labs for Last 24 Hours: Temp Pulse Resp BP Pulse Ox O2 Del Method 97.8 F 90 28 H 110/61 100 Room Air 09/21/24 17:38 09/21/24 18:00 09/21/24 18:00 09/21/24 18:00 09/21/24 18:00 09/21/24 17:38 Laboratory Results - last 24 hr 09/21/24 18:31: WBC 7.1, RBC 3.50 L, Hgb 7.2 L, Hct 24.2 L, MCV 69.1 L, MCH 20.6 L, MCHC 29.8 L, RDW 18.1 H, Plt Count 649 H, MPV 8.8, Neut % (Auto) 66.0, Lymph % (Auto) 20.9, [place] % (Auto) 12.3 H, Eos % (Auto) 0.1, Baso % (Auto) 0.4, Neut # (Auto) 4.7, Lymph # (Auto) 1.5, [place] # (Auto) 0.9, Eos # (Auto) 0.0, Baso # (Auto) 0.0, Sodium 135 L, Potassium 4.0, Chloride 102, Carbon Dioxide 21 L, Anion Gap 16.0 H, BUN 10, Creatinine 0.60, Estimated Creat Clear 46, Estimated GFR 100, Est GFR ( Amer) 121, Glucose 102 H, Calcium 8.6, Magnesium 2.1, Total Bilirubin 0.4, AST 39 H, ALT 19, Alkaline Phosphatase 139 H, Troponin I < 0.01, NT-Pro-B Natriuret Pep 1120 H, Total Protein 6.9, Albumin 3.5, Globulin 3.4 H, Albumin/Globulin Ratio 1.0 L, Lipase 147, Plasma/Serum Alcohol < 10, HIV Ag/Ab Combo Qual Negative 09/21/24 18:32: SARS-CoV-2 (PCR) Not detected, Influenza A Untype (PCR) Not detected, Influenza Type B (PCR) Not detected 09/21/24 22:00: Troponin I < 0.01, HCV Ab NANCY w/Rflx PCR Qn Negative I & O for Last 24 hours: Intake & Output 09/18/24 09/19/24 09/20/24 09/21/24 23:59 23:59 23:59 23:59 Weight 52.163 kg Constitutional Constitutional: no acute distress *Routine HEENT Exam Head: Present normocephalic Eye: Present EOMI and PERRL ENT: Present mucous membranes moist *Routine Neck Exam Neck: Present supple; Absent lymphadenopathy *Routine Respiratory Exam Respiratory: Present CTA bilaterally *Routine Cardiovascular Exam Cardiovascular: Present RRR *Routine Abdominal Exam Abdominal: Present soft and normoactive bowel sounds; Absent tenderness *Routine Rectal Exam Rectal:: deferred *Routine Genitalia Exam Genitalia:: deferred *Routine Extremities Exam Extremities: Absent cyanosis, clubbing or edema Comments: Right lower extremity 3 out of 5 strength, left extremity 4 out of 5 strength. Moderate tenderness to palpation of her right knee without obvious effusion, erythema, warmth. *Routine Skin Exam Skin: Present warm; Absent rash *Routine Neurological Exam Neurological: Present alert and oriented X3 Assessment and Plan *Assessment and plan (1) Generalized weakness: Status: Acute Category: Medical Code(s): R53.1 - Weakness (2) URI (upper respiratory infection): Status: Acute Category: Medical Code(s): J06.9 - Acute upper respiratory infection, unspecified (3) Lower extremity weakness: Status: Acute Category: Medical Code(s): R29.898 - Other symptoms and signs involving the musculoskeletal system (4) Right knee pain: Status: Acute Category: Medical Code(s): M25.561 - Pain in right knee (5) Acute on chronic anemia: Status: Acute Category: Medical Code(s): D64.9 - Anemia, unspecified Plan Florencia Waller is a 64-year-old female with a medical history significant for 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 She states she has been having nasal congestion, rhinorrhea, diarrhea for the past several days that is making her hard to breathe through the nose. Patient was getting ready to be discharged, however she admitted that she is not able to ambulate well. She endorses lower extremity weakness ongoing for about a year due to right knee pain and that she has had recurrent falls at home. She lives in a camper, and moved out of her big house as it was too big to walk around. She states her son helps with groceries and other errands however not so much recently has he has a new girlfriend. In fact, multiple attempts were made to contact son by ED to no avail. Workup in the ED significant for hemoglobin 7.2, MCV 69.1, AGAP 16, BNP 1120, CXR without acute findings. Case discussed with ED provider and decision was made to admit patient for lower extremity weakness, physical deconditioning, inability to take care of herself at home, acute on chronic anemia. #Generalized weakness #Lower extremity weakness #Right knee pain, osteoarthritis ? Patient endorses due to right knee pain (history of arthritis) she has not been able to walk around much at home. She seems to have gotten physically deconditioned due to this. She states she cannot walk more than 6 steps without falling. ? Follow-up right knee x-ray. Previous right knee plain films in 2019 revealed moderate osteoarthritis. ? PT/OT consulted, pending further recommendations. Patient is open to placement. ? Follow-up B12, folate, TSH, iron studies. Anemia is likely contributing to generalized weakness. #Acute on chronic microcytic anemia #History of renal carcinoma ? History of anal carcinoma the patient states is in remission in early 2023 after chemo, radiation therapy. Follows with Dr. Dumont. ? Hemoglobin 7.2, MCV 69.1 on admission. Iron studies indicate severe iron deficiency, ferritin 6.64. ? Patient denies bleeding, but she also states she does not look at her stool. ? Will transfuse 1 unit PRBC. Follow-up repeat H/H, ferritin. ? Follow-up FOBT. ? IV Protonix 40 mg daily. ? GI consulted, pending further recommendations. NPO. #Acute viral syndrome ? Follow-up respiratory panel, diarrhea panel. #Anxiety ? Apparently has taken Xanax for many years. But has ran out for a few weeks. ? Hold home Xanax reconciliation. Consider alternatives if possible. Full code DVT prophylaxis: SCDs due to acute on chronic anemia
[2024-09-22] VITALS (26 sets, daily range): BP systolic 97–133; BP diastolic 57–89; PULSE 68–109; RESP 14–22; TEMP 36.6–37.3; O2SAT 96–100; BMI 19.5
[2024-09-22 00:24] LABS: Iron 33 ug/dL (37-170)
--- NOTE | 2024-09-22 00:29 | PC.NURSE ---
Patient arrived to floor via stretcher from ED at 00:25.
[2024-09-22 00:34] LABS: Total Iron Binding Capacity 284 ug/dL (265-497)
[2024-09-22 00:41] LABS: Free T4 (Free Thyroxine) 1.37 ng/dl (0.78-2.19)
[2024-09-22 00:56] LABS: Thyroid Stimulating Hormone 1.26 uIU/mL (0.465-4.68)
[2024-09-22 01:00] LABS: Ferritin 6.64 ng/ml (11.1-264)
--- NOTE | 2024-09-22 01:00 | PC.NURSE ---
Lab called at this time to report that the patient's diarrhea panel is positive for C. diff. Contact/enteric precautions to be initiated.
[2024-09-22 01:22] LABS: Troponin I < 0.01 ng/ml (0.00-0.034)
[2024-09-22 02:30] LABS: Vitamin B12 386 pg/mL (239-931)
--- NOTE | 2024-09-22 03:40 | PC.NURSE ---
Ms Florencia Waller was newly admitted this shift on behalf of the following documented diagnoses: failure to thrive and anemia. She stated that what originally brought her into to the ER were complaints of not being able to ambulate, congestion and shortness of breath that has been going on for the past two days, multiple falls at home, generalized soreness, and reports of diarrhea. Patient explained that she lives alone in a camper with a room and uses a wheelchair to assist her. She stated that she has not been able to eat because she is too weak to open jars and containers. Currently, patient reports that she is too weak to ambulate and has remained in bed for this shift. Patient was decontaminated for bedbugs in the ER; thus far, there have been no sightings of other bedbugs since her arrival to the floor. Patient has scattered scabby abrasions on her bilateral forearms and a small, round contusion on her upper forehead. She has a purewick in place. Several snacks, ice water, and a Diet Pepsi was given to the patient; she tolerated the items well. Irregular rhythm was heard during auscultation of her heart; auscultation of her lungs and bowels were within normal findings. Patient is alert and oriented x4. Vital signs have been stable this shift; she tolerates room air. At this time, the patient is resting in bed without further requests. No acute changes noted thus far. Call light within reach. A stool sample (occult blood, diarrhea panel) and a urinalysis remains uncollected thus far.
[2024-09-22 04:52] LABS: Basophils % 0.5 % (0.1-2.0); Eosinophils % 0.2 % (0.1-12.0); Hematocrit 22.4 % (37.0-47.0); Lymphocytes # 1.2 K/mm3 (0.7-4.5); Lymphocytes % 18.8 % (10-50); Mean Corpuscular HGB Conc 29.9 g/dL (31.8-35.4); Mean Corpuscular Hemoglobin 20.7 pg (27.0-31.2); Mean Corpuscular Volume 69.3 fl (81-99); Mean Platelet Volume 8.8 fl (7.4-10.4); Monocytes # 0.7 K/mm3 (0.1-1.0); Neutrophils # 4.5 K/mm3 (1.8-7.8); Neutrophils % 69.2 % (37.0-80.0); Platelet Count 697 K/mm3 (142-424); Red Blood Count 3.23 M/mm3 (4.20-5.40); Red Cell Distribution Width 18.4 % (11.5-17.5); White Blood Count 6.5 K/mm3 (4.8-10.8)
[2024-09-22 04:54] LABS: Hemoglobin 6.7 g/dL (12.2-16.2)
--- NOTE | 2024-09-22 05:00 | PC.NURSE ---
Lab called at 04:53 to report a critical hemoglobin value for the patient of 6.7. Akil SANON was notified at 04:56 about the critical lab value. He stated that he will order 2 units of blood to be given.
[2024-09-22 05:03] LABS: Albumin Level 3.8 g/dl (3.5-5.0); Chloride 99 mmol/L (98-107); Sodium 136 mmol/L (136-145)
[2024-09-22 05:05] LABS: Blood Urea Nitrogen 11 mg/dl (7-17); Creatinine Clearance Estimated 45 mL/min (50-200); Estimated Glomerular Filt Rate 84 ml/min (>60); GFR (African American) 101 ML/MIN (>60)
[2024-09-22 05:06] LABS: Alanine Aminotransferase 13 U/L (12-78); Albumin/Globulin Ratio 1.1 (1.1-1.8); Alkaline Phosphatase 139 U/L (38-126); Anion Gap 12.9 mEq/L (5-15); Aspartate Amino Transferase 33 U/L (14-36); Bilirubin,Total 0.3 mg/dl (0.2-1.3); Calcium 8.6 mg/dl (8.4-10.2); Carbon Dioxide 27 mmol/L (22.0-30.0); Globulin 3.6 g/dL (1.3-3.2); Glucose 115 mg/dl (74-100); Magnesium 2.1 mg/dl (1.6-2.3); Total Protein,Serum 7.4 g/dl (6.3-8.2)
[2024-09-22 05:14] LABS: Potassium 2.9 mmoL/L (3.5-5.1)
--- NOTE | 2024-09-22 05:14 | PC.NURSE ---
Lab called at this time to report a critical potassium value of 2.9 for the patient. Akil SANON was paged to inform him of the critical lab value. Electrolyte replacement orders to be initiated.
[2024-09-22] MEDS: KCl 20mEq/100ml 100 ML 50 MEQ IV ×2 (05:51→07:38)
--- NOTE | 2024-09-22 06:00 | XR_ITS ---
FINAL REPORT CLINICAL HISTORY: Right knee pain, COMPARISON: None FINDINGS: RIGHT KNEE There is no acute fracture or dislocation. There is moderate medial compartment joint space narrowing. There is no soft tissue abnormality. IMPRESSION: Moderate medial compartment joint space narrowing, likely secondary to osteoarthritis. No acute bony abnormality identified. Reviewed, Interpreted and Dictated by Silvestre De Anda MD Transcribed by Twila Hoyt Authenticated and . [facility]
--- NOTE | 2024-09-22 06:41 | PC.NURSE ---
An additional IV (22G) was inserted into the right forearm by me.
--- NOTE | 2024-09-22 09:07 | HMH.PTEV ---
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 She states she has been having nasal congestion, rhinorrhea for the past several days that is making her hard to breathe through the nose. Patient was getting ready to be discharged, however she admitted that she is not able to ambulate well. She endorses lower extremity weakness ongoing for about a year due to right knee pain and that she has had recurrent falls at home. She lives in a camper, and moved out of her big house as it was too big to walk around. She states her son helps with groceries and other errands however not so much recently has he has a new girlfriend. In fact, multiple attempts were made to contact son by ED to no avail . Workup in the ED significant for hemoglobin 7.2 , MCV 69.1, AGAP 16, BNP 1120, CXR without acute findings. Case discussed with ED provider and decision was made to admit patient for lower extremity weakness, physical deconditioning, inability to take care of herself at home, acute on chronic anemia. Subjective Subjective PLOF: Pt reports she used to be IND with mobility without AD use. Pt reports she now can only ambulate a few steps d/t pain and weakness. Home: Lives alone in a camper with 3-4 RAMANA and no HRs. Available assistance: Has a son who is not able to stay with her. Falls: Pt reports 5 falls in past week. New diagnosis of cancer in past 12 No months? Rehab PT IP Eval Objective Appearance Patient Behavior Appropriate,Cooperative Patient Orientation Person Difficulty following instructions none Speech Pattern Clear Ambulation Patient Able to Ambulate No Balance Ability to Arise Able, uses arms to help Sitting Balance Steady, safe Standing Balance Unsteady Dynamic Sitting Balance Ability Good Dynamic Standing Balance Ability Poor Transfers Bed Transfer Ability Minimal x 1 (25% assist) Sit to Stand Bed Transfer Ability Minimal x 1 (25% assist) Rehab PT IP prob,goals,plan Problems Date of Evaluation: 09/22/24 PT IP Problems Bed Mobility,Transfers,Gait, Balance,Safety Rehab Potential Rehab Potential Good Equipment Needs Assistive Devices Rolling / Wheeled Walker Plan PT Intervention Plan Bed Mobility,Transfers,Gait, Balance,Self care,Safety, Therapeutic Exercise Other Intervention Plan 1-2 times PT Plan Frequency Daily Duration LOS Discharge Goals Bed Transfer Ability Supervision/Stand by Sit to Stand Chair Transfer Ability Contact Guard/Hand Hold Ambulation Assistive Device Rolling Walker Ambulation Distance (feet) 10 Discharge Plan PT Discharge Plan Pt presents below baseline in ambulation, strength, and functional mobility. Pt is not safe to return home at this time d/t inability to ambulate . Pt's mobility limited by dizziness, R knee pain, and BLE weakness. PT recommending short-term inpatient rehabilitation prior to d/c from [facility]. Pt would benefit from skilled acute care PT to address deficits and prevent further functional decline. Eval Complexity Eval Charge Codes 75661 - Moderate Complexity PHYSICIAN CERTIFICATION: I certify the specified therapy services for Florencia Waller are required, authorized, and reviewed every 30 days.
--- NOTE | 2024-09-22 09:28 | HMH.PHAINT1 ---
Pharmacy Intervention Comments: VERIFIED MEDICATIONS WITH OUTPATIENT PHARMACY AND CONFIRMED WITH PATIENT.
[2024-09-22] MEDS: LORATADINE 10MG TABLET 10 MG PO (09:52)
--- NOTE | 2024-09-22 10:14 | SW/DCPLANNER ---
Addendum entered by Rebecca Mills 09/23/24 08:27: Patient will discharge to [facility] level of care today. Addendum entered by Rebecca Rockford 09/22/24 14:55: Per Annika pagan/ [facility] patient has been approved SNF level of care. I will update MD. Addendum entered by Rebecca Rockford 09/22/24 14:12: Per Annika pagan/ [facility] precert will be started today. Original Note: I spoke w/ this patient regarding plans once medically stable for discharge. PT/OT evaluated patient and recommended SNF level of care at time of discharge. Patient is agreeable to placement at the following facilities: [facility], [facility] and [facility]. I will fax patient information today. Discharge date is unknown at this time.
--- NOTE | 2024-09-22 10:15 | HMH.OTEV ---
OT Inpatient Evaluation Rehab OT IP Evaluation Start: 09/21/24 23:34 Freq: ONCE Status: Active Protocol: Document 09/22/24 10:10 [facility] (Rec: 09/22/24 10:14 [facility] [id number]) Rehab OT IP Assessment Subjective History Pt oriented x 3 on arrival. Pt agreeable to engage in therapy evaluation. 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 She states she has been having nasal congestion, rhinorrhea for the past several days that is making her hard to breathe through the nose. Patient was getting ready to be discharged, however she admitted that she is not able to ambulate well. She endorses lower extremity weakness ongoing for about a year due to right knee pain and that she has had recurrent falls at home. She lives in a camper, and moved out of her big house as it was too big to walk around. She states her son helps with groceries and other errands however not so much recently has he has a new girlfriend. In fact, multiple attempts were made to contact son by ED to no avail . Workup in the ED significant for hemoglobin 7.2 , MCV 69.1, AGAP 16, BNP 1120, CXR without acute findings. Case discussed with ED provider and decision was made to admit patient for lower extremity weakness, physical deconditioning, inability to take care of herself at home, acute on chronic anemia. Subjective PLOF: Pt reports she used to be IND with mobility without AD use. Pt reports she now can only ambulate a few steps d/t pain and weakness. ADLS: Pt claims normally she is able to complete ADLs, but recently she has had increased difficulty and been unable to shower without assistance. She is normally independent with cooking simple meals, but requires assistance with other heavier household tasks such as cleaning and laundry Home: Lives alone in a camper with 3-4 RAMANA and no HRs. Available assistance: Has a son who is not able to stay with her. Falls: Pt reports 5 falls in past week. Objective Patient Orientation Person,Place,Birthday Right Upper Extremity Gross ROM Min Limitation <25% Left Upper Extremity Gross ROM Min Limitation <25% Bed Mobility bed mobility-scooting,bed mobility - supine/sit Assist Level Contact Guard/Hand Hold Transfer Training Sit/Stand Transfer Assist Level Minimal x 1 (25% assist) Rehab OT IP prob,goals,plan Problems Date of Evaluation: 09/22/24 OT IP Problems Bed Mobility,Transfers,Balance ,Self care,Safety Rehab Potential Rehab Potential Good Equipment Needs Assistive Devices Rolling / Wheeled Walker Plan OT intervention Plan Bed Mobility,Transfers,Balance ,Self care,Safety,Therapeutic Exercise OT Plan Frequency Daily Duration LOS Discharge Goals Bed Mobility Ability Standby Assistance Sit to Stand Chair Transfer Ability Contact Guard/Hand Hold Chair Transfer Ability Contact Guard/Hand Hold Chair Transfer Technique Sit to/from Ambulatory Chair Transfer Assistive Devices Rolling Walker Lower Body Dressing Ability Moderate Assistance Upper Body Dressing Ability Minimal Assistance Bathing Ability Moderate Assistance Performing Toilet Hygiene Ability Minimal Assistance Overall Commode/Toilet Transfer Ability Contact Guard Commode/Toilet Transfer Technique Sit to/from Ambulatory Discharge Plan OT Discharge Plan At this time, pt presents below baseline in functional transfers, strength, and ADL independence. Pt is not safe to return home at this time d/ t decreased independence. Pt's functional transfers are limited by dizziness, R knee pain, and BLE weakness. OT recommending short-term inpatient rehabilitation prior to d/c from [facility]. Pt would benefit from skilled acute care OT to address deficits and prevent further functional decline. Eval Complexity Eval Charge Codes 10519 - Moderate Complexity PHYSICIAN CERTIFICATION: I certify the specified therapy services for Florencia Waller are required, authorized, and reviewed every 30 days.
--- NOTE | 2024-09-22 14:23 | EXP.GE.CONS ---
History of Present Illness *Admission Date: 09/21/24 *History of present illness: Mrs. Waller is a 64-year-old female who was admitted for upper respiratory symptoms. The patient did have lab work this morning showing hemoglobin 6.7 and hematocrit 22.4. The patient did have a colonoscopy with Dr. Huang Panchal M.D. in July 2023 and had a complex ulcerative fungating anorectal mass lesion and biopsies confirmed anal cell carcinoma. The patient has received radiation therapy and chemotherapy and has been followed by Dr. Olivier Dumont. The patient states that she admittedly has not gone back for follow-up or surveillance. Her colonoscopy in July 2023 had shown an exceptionally poor bowel preparation so visualization of the colon was not complete. As we are discussing plans for possible colonoscopy or even sigmoidoscopy, the patient clearly does not want to proceed with further diagnostic testing and states that if she does have cancer she is unconcerned and does not want to even know. The patient reports no rectal bleeding or hematochezia. She has had no change in bowel habits. [facility] Disclaimer: The information contained in this section may have been updated after the patient was seen, as this information can be updated by other users. Medical History Anal squamous cell carcinoma Pedal edema Medical clearance for incarceration Surgical History History of tonsillectomy Hx of local excision of skin lesion Hx of esophagogastroduodenoscopy Family History (Updated 09/22/24 @ 01:05 by Penelope Hernadnez RN) Other CREST syndrome Family history of TIAs Family history of cancer Social History (Updated 09/22/24 @ 01:05 by Penelope Hernandez RN) Smoking Status: Never smoker alcohol intake: current alcohol intake frequency: holidays/special occasions only substance use type: denies use current occupational status: retired Travel in the last 8 weeks: None household members: other number of children: 2 Have you lived/traveled outside [place] in past 30 days?: No Contact w/someone who lives/traveled outside US past 30 days?: No Exposure to someone with infectious disease in past 14 days?: No Do you have a fever (greater than 100.4 F or 38 C)?: No Have you tested positive for COVID-19: No Exposed to someone with COVID-19 in past 14 days?: No Do you have a sore throat?: No Do you have a cough?: No Do you have any weakness?: No Do you have any diarrhea?: No Are you experiencing any unusual bleeding?: No Do you have any muscle aches/pain?: No Do you have any abdominal pain?: No Are you experiencing loss of taste or smell?: No Meds Home Medications and Allergies Home Medications ?Medication ?Instructions ?Recorded ?Confirmed ?Type cetirizine 10 mg tablet 10 mg PO DAILY PRN ALLERGIES 09/22/24 09/22/24 History hydrocodone 7.5 mg-acetaminophen 1 - 2 tab PO TID PRN Pain 09/22/24 09/22/24 History 325 mg tablet New Prescriptions to Start Prescriptions: Allergies Allergy/AdvReac Type Severity Reaction Status Date / Time Penicillins Allergy Severe S-SWELLS-OR Verified 04/20/24 13:45 AL/THROAT acetaminophen (From Percocet) Allergy Intermediate I-HIVES Verified 04/20/24 13:45 aspirin (From Percodan) Allergy Intermediate I-HIVES; Verified 04/20/24 13:45 HALLUCINATIONS codeine Allergy Intermediate I-RASH Verified 04/20/24 13:45 egg (From EGGS (FOOD/DRUG)) Allergy Intermediate I-RASH Verified 04/20/24 13:45 morphine Allergy Intermediate I-RASH Verified 04/20/24 13:45 oxycodone (From Percodan) Allergy Intermediate I-HIVES; Verified 04/20/24 13:45 HALLUCINATIONS venom-honey bee (bee venom Allergy Intermediate I-HIVES Verified 04/20/24 13:45 (honey bee)) etodolac Allergy Verified 04/20/24 13:45 gabapentin Allergy Verified 04/20/24 13:45 duloxetine AdvReac Verified 04/20/24 13:45 fluoxetine AdvReac Verified 04/20/24 13:45 FLY Allergy Unknown I-HIVES Uncoded 04/20/24 13:45 From EGGS (FOOD/DRUG) Allergy Unknown I-RASH Uncoded 04/20/24 13:45 PRO-LIQD Allergy Unknown I-HIVES Uncoded 04/20/24 13:45 slacone Allergy Uncoded 04/20/24 13:45 Exam (Inpt) Vital signs and Labs for Last 24 Hours: Temp Pulse Resp BP Pulse Ox O2 Del Method 98.0 F 96 H 20 114/69 99 Room Air 09/22/24 13:20 09/22/24 13:20 09/22/24 13:20 09/22/24 13:20 09/22/24 13:20 09/22/24 08:00 Laboratory Results - last 24 hr 09/21/24 18:31: WBC 7.1, RBC 3.50 L, Hgb 7.2 L, Hct 24.2 L, MCV 69.1 L, MCH 20.6 L, MCHC 29.8 L, RDW 18.1 H, Plt Count 649 H, MPV 8.8, Neut % (Auto) 66.0, Lymph % (Auto) 20.9, [place] % (Auto) 12.3 H, Eos % (Auto) 0.1, Baso % (Auto) 0.4, Neut # (Auto) 4.7, Lymph # (Auto) 1.5, [place] # (Auto) 0.9, Eos # (Auto) 0.0, Baso # (Auto) 0.0, Sodium 135 L, Potassium 4.0, Chloride 102, Carbon Dioxide 21 L, Anion Gap 16.0 H, BUN 10, Creatinine 0.60, Estimated Creat Clear 46, Estimated GFR 100, Est GFR ( Amer) 121, Glucose 102 H, Calcium 8.6, Magnesium 2.1, Total Bilirubin 0.4, AST 39 H, ALT 19, Alkaline Phosphatase 139 H, Troponin I < 0.01, NT-Pro-B Natriuret Pep 1120 H, Total Protein 6.9, Albumin 3.5, Globulin 3.4 H, Albumin/Globulin Ratio 1.0 L, Lipase 147, Plasma/Serum Alcohol < 10, HIV Ag/Ab Combo Qual Negative 09/21/24 18:32: SARS-CoV-2 (PCR) Not detected, Influenza A Untype (PCR) Not detected, Influenza Type B (PCR) Not detected 09/21/24 22:00: Troponin I < 0.01, HCV Ab NANCY w/Rflx PCR Qn Negative 09/21/24 23:59: Iron 33 L, TIBC 284, Iron Saturation 11.35113 L, Vitamin B12 386, Folate 15.80, TSH 1.26 09/22/24 00:30: Blood Type Confirm A Positive 09/22/24 00:46: Ferritin 6.64 L D, Troponin I < 0.01, Free T4 1.37 09/22/24 04:45: WBC 6.5, RBC 3.23 L, Hgb 6.7 L*, Hct 22.4 L, MCV 69.3 L, MCH 20.7 L, MCHC 29.9 L, RDW 18.4 H, Plt Count 697 H, MPV 8.8, Neut % (Auto) 69.2, Lymph % (Auto) 18.8, [place] % (Auto) 11.0 H, Eos % (Auto) 0.2, Baso % (Auto) 0.5, Neut # (Auto) 4.5, Lymph # (Auto) 1.2, [place] # (Auto) 0.7, Eos # (Auto) 0.0, Baso # (Auto) 0.0, Sodium 136, Potassium 2.9 L* D, Chloride 99, Carbon Dioxide 27, Anion Gap 12.9, BUN 11, Creatinine 0.70, Estimated Creat Clear 45, Estimated GFR 84, Est GFR ( Amer) 101, Glucose 115 H, Calcium 8.6, Magnesium 2.1, Total Bilirubin 0.3, AST 33, ALT 13 D, Alkaline Phosphatase 139 H, Total Protein 7.4, Albumin 3.8, Globulin 3.6 H, Albumin/Globulin Ratio 1.1, Blood Type A Positive, Antibody Screen Negative, Crossmatch ([facility]) See Detail I & O for Labs for Last 24 Hours: Intake & Output 09/19/24 09/20/24 09/21/24 09/22/24 23:59 23:59 23:59 23:59 Intake Total 547 / 547 Output Total 0 / 0 Balance 547 / 547 Weight 115 lb 114 lb 1.6 oz Results Labs 09/22/24 04:45 09/22/24 04:45 Labs: Laboratory Results - last 24 hr 09/21/24 18:31: WBC 7.1, RBC 3.50 L, Hgb 7.2 L, Hct 24.2 L, MCV 69.1 L, MCH 20.6 L, MCHC 29.8 L, RDW 18.1 H, Plt Count 649 H, MPV 8.8, Neut % (Auto) 66.0, Lymph % (Auto) 20.9, [place] % (Auto) 12.3 H, Eos % (Auto) 0.1, Baso % (Auto) 0.4, Neut # (Auto) 4.7, Lymph # (Auto) 1.5, [place] # (Auto) 0.9, Eos # (Auto) 0.0, Baso # (Auto) 0.0, Sodium 135 L, Potassium 4.0, Chloride 102, Carbon Dioxide 21 L, Anion Gap 16.0 H, BUN 10, Creatinine 0.60, Estimated Creat Clear 46, Estimated GFR 100, Est GFR ( Amer) 121, Glucose 102 H, Calcium 8.6, Magnesium 2.1, Total Bilirubin 0.4, AST 39 H, ALT 19, Alkaline Phosphatase 139 H, Troponin I < 0.01, NT-Pro-B Natriuret Pep 1120 H, Total Protein 6.9, Albumin 3.5, Globulin 3.4 H, Albumin/Globulin Ratio 1.0 L, Lipase 147, Plasma/Serum Alcohol < 10, HIV Ag/Ab Combo Qual Negative 09/21/24 18:32: SARS-CoV-2 (PCR) Not detected, Influenza A Untype (PCR) Not detected, Influenza Type B (PCR) Not detected 09/21/24 22:00: Troponin I < 0.01, HCV Ab NANCY w/Rflx PCR Qn Negative 09/21/24 23:59: Iron 33 L, TIBC 284, Iron Saturation 11.03863 L, Vitamin B12 386, Folate 15.80, TSH 1.26 09/22/24 00:30: Blood Type Confirm A Positive 09/22/24 00:46: Ferritin 6.64 L D, Troponin I < 0.01, Free T4 1.37 09/22/24 04:45: WBC 6.5, RBC 3.23 L, Hgb 6.7 L*, Hct 22.4 L, MCV 69.3 L, MCH 20.7 L, MCHC 29.9 L, RDW 18.4 H, Plt Count 697 H, MPV 8.8, Neut % (Auto) 69.2, Lymph % (Auto) 18.8, [place] % (Auto) 11.0 H, Eos % (Auto) 0.2, Baso % (Auto) 0.5, Neut # (Auto) 4.5, Lymph # (Auto) 1.2, [place] # (Auto) 0.7, Eos # (Auto) 0.0, Baso # (Auto) 0.0, Sodium 136, Potassium 2.9 L* D, Chloride 99, Carbon Dioxide 27, Anion Gap 12.9, BUN 11, Creatinine 0.70, Estimated Creat Clear 45, Estimated GFR 84, Est GFR ( Amer) 101, Glucose 115 H, Calcium 8.6, Magnesium 2.1, Total Bilirubin 0.3, AST 33, ALT 13 D, Alkaline Phosphatase 139 H, Total Protein 7.4, Albumin 3.8, Globulin 3.6 H, Albumin/Globulin Ratio 1.1, Blood Type A Positive, Antibody Screen Negative, Crossmatch ([facility]) See Detail Assessment and Plan *Assessment and plan (1) Iron deficiency anemia: Status: Acute Category: Medical Code(s): D50.9 - Iron deficiency anemia, unspecified (2) Anal carcinoma: Status: Acute Category: Medical Code(s): C21.0 - Malignant neoplasm of anus, unspecified Plan 1. Microcytic anemia/iron deficiency anemia. This is a marked change with drop in her hemoglobin and hematocrit from April 2024 (12.2 and 37.6 and now 6.7 and 22.4). My first thought is that the patient should have diagnostic colonoscopy to visualize the proximal colon which was not seen on initial colonoscopy in 2022. It is also to determine whether she is in remission from the anal carcinoma. The patient states that she failed to follow-up after last treatment. The patient made it clear that she is not interested in doing this examination and understands the benefits and risks of doing the colonoscopy. I have explained in detail.
[2024-09-22 16:47] LABS: Microscopic, Urine URINE MICROSCOPIC (MICROSCOPIC)
[2024-09-22 16:55] LABS: Appearance,Urine CLEAR (Clear); Bilirubin,Urine Negative (Negative); Blood, Urine Negative (Negative); Color,Urine YELLOW (Yellow); Glucose,Urine (UA) Negative (Negative); Ketones,Urine Negative (Negative); Leukocyte Esterase,Urine Negative (Negative); Nitrate,Urine Negative (Negative); PH,Urine 7.5 (5.0-8.5); Protein,Urine Negative (Negative); Specific Gravity, Urine 1.015 (1.005-1.030); Urobilinogen,Urine 0.2 EU/dl (0.2)
[2024-09-22 17:08] LABS: Benzodiazepines Screen,Urine Negative ng/ml (<200)
[2024-09-22 17:09] LABS: Cannabinoid Screen,Urine Negative ng/ml (<50)
[2024-09-22 17:10] LABS: Cocaine Screen,Urine Negative ng/ml (<300); Methadone Screen,Urine Negative ng/ml (<300)
[2024-09-22 17:11] LABS: Opiate Screen,Urine Positive ng/ml (<300)
[2024-09-22 17:20] LABS: Amphetamine/Metha Screen,Urine Negative ng/ml (<1000)
[2024-09-22 17:21] LABS: Barbiturates Screen,Urine Negative ng/ml (<200)
[2024-09-22 17:22] LABS: Phencyclidine Screen,Urine Negative ng/ml (<25)
[2024-09-22 17:43] LABS: Mucus,Urine 3+ /lpf
[2024-09-22 19:09] LABS: Hematocrit 32.6 % (37.0-47.0)
--- NOTE | 2024-09-22 19:12 | PC.NURSE ---
Pt has c/o not urinating since yesterday, she was bladder scanned and 500 ml was found in bladder. Pt was in and out cathed and had 500 ml out. made aware.
[2024-09-22 19:46] LABS: Hemoglobin 10.4 g/dL (12.2-16.2)
--- NOTE | 2024-09-22 20:03 | P.PN_ITS ---
Subjective *Date: 09/22/24 *Time: 23:01 Interval history: Patient tolerating transfusion. Stable on room air. Denies any bright red blood per stool. Denies any chest pain or shortness of breath. Weak but working with therapy. Would benefit from placement. Discussed further treatment for her anemia, patient states she does not want any interventions, scopes, procedures. Medical Exam Vital signs and Labs for Last 24 Hours: Vital Signs Temp Pulse Pulse Resp BP BP Pulse Ox 09/22/24 19:00 09/22/24 16:58 09/22/24 16:00 98.0 F 89 18 109/66 L 97 09/22/24 15:00 09/22/24 15:00 98.2 F 94 H 19 121/72 100 09/22/24 15:00 98.0 F 95 H 22 115/62 99 09/22/24 13:35 97.9 F 98 H 18 106/69 L 99 09/22/24 13:20 98.0 F 96 H 20 114/69 99 09/22/24 13:05 98.2 F 103 H 17 127/68 100 09/22/24 13:00 09/22/24 12:50 98.1 F 95 H 18 115/67 98 09/22/24 12:45 98.1 F 97 H 20 124/77 100 09/22/24 12:45 98.1 F 97 H 20 124/77 100 09/22/24 12:40 98.0 F 98 H 20 122/75 100 09/22/24 12:35 98.2 F 99 H 19 110/79 99 09/22/24 12:10 98.2 F 108 H 20 124/89 99 09/22/24 11:45 98.1 F 92 H 18 108/74 L 100 09/22/24 11:00 09/22/24 10:50 98.0 F 95 H 18 110/80 99 09/22/24 10:35 97.8 F 94 H 20 113/69 100 09/22/24 10:20 98.0 F 104 H 18 100/69 L 98 09/22/24 10:05 97.9 F 99 H 17 98/67 L 100 09/22/24 10:00 98.1 F 101 H 17 107/66 L 99 09/22/24 09:55 98.1 F 102 H 18 105/57 L 100 09/22/24 09:50 98.3 F 101 H 18 97/67 L 100 09/22/24 09:30 98.3 F 106 H 17 108/61 L 100 09/22/24 09:00 09/22/24 08:00 09/22/24 08:00 98.3 F 109 H 18 116/69 98 09/22/24 06:40 09/22/24 05:00 09/22/24 04:00 98.3 F 99 H 16 98/60 L 100 09/22/24 03:00 09/22/24 01:00 09/22/24 00:40 98.3 F 68 14 114/70 100 09/22/24 00:08 97.9 F 94 H 20 123/71 09/21/24 23:55 94 H 20 100 O2 Del Method 09/22/24 19:00 Room Air 09/22/24 16:58 Room Air 09/22/24 16:00 09/22/24 15:00 Room Air 09/22/24 15:00 09/22/24 15:00 09/22/24 13:35 09/22/24 13:20 09/22/24 13:05 09/22/24 13:00 Room Air 09/22/24 12:50 09/22/24 12:45 09/22/24 12:45 09/22/24 12:40 09/22/24 12:35 09/22/24 12:10 09/22/24 11:45 09/22/24 11:00 Room Air 09/22/24 10:50 09/22/24 10:35 09/22/24 10:20 09/22/24 10:05 09/22/24 10:00 09/22/24 09:55 09/22/24 09:50 09/22/24 09:30 09/22/24 09:00 Room Air 09/22/24 08:00 Room Air 09/22/24 08:00 Room Air 09/22/24 06:40 Room Air 09/22/24 05:00 Room Air 09/22/24 04:00 Room Air 09/22/24 03:00 Room Air 09/22/24 01:00 Room Air 09/22/24 00:40 Room Air 09/22/24 00:08 Room Air 09/21/24 23:55 Room Air Intake and Output 09/22/24 09/22/24 09/22/24 07:59 15:59 23:59 Intake Total 177 / 917 620 / 917 120 / 917 Output Total 0 / 600 600 / 600 Balance 177 / 317 620 / 317 -480 / 317 Intake: Intake, Oral Amount 177 / 417 120 / 417 120 / 417 Intake (Blood Product) Amt 500 / 500 Red Blood Cells Unit 250 / 250 [id number] Red Blood Cells Unit 250 / 250 [id number] Output: Output, Urine Amount 0 / 100 100 / 100 Output, Urine Amount (Catheter) 500 / 500 Straight 500 / 500 Other: Number of Unmeasured Voids 0 Weight 51.755 kg Patient Weight 09/22/24 23:59 Weight 51.755 kg Laboratory Results - last 24 hr 09/21/24 16:42: Urine Color Yellow, Urine Appearance Clear, Urine pH 7.5, Ur Specific [place] 1.015, Urine Protein Negative, Urine Glucose (UA) Negative, Urine Ketones Negative, Urine Blood Negative, Urine Nitrate Negative, Urine Bilirubin Negative, Urine Urobilinogen 0.2, Ur Leukocyte Esterase Negative, Urine RBC 3-5, Urine WBC 3-5, Ur Squamous Epith Cells 3-5, Urine Mucus 3+, Urine Opiates Screen Positive H, Urine Methadone Screen Negative, Ur Barbituates Screen Negative, Ur Phencyclidine Scrn Negative, Ur Amphetamines Screen Negative, U Benzodiazepines Scrn Negative, Urine Cocaine Screen Negative, U Marijuana (THC) Screen Negative 09/21/24 18:31: Plasma/Serum Alcohol < 10, HIV Ag/Ab Combo Qual Negative 09/21/24 18:32: SARS-CoV-2 (PCR) Not detected, Influenza A Untype (PCR) Not detected, Influenza Type B (PCR) Not detected 09/21/24 22:00: Troponin I < 0.01, HCV Ab NANCY w/Rflx PCR Qn Negative 09/21/24 23:59: Iron 33 L, TIBC 284, Iron Saturation 11.72080 L, Vitamin B12 386, Folate 15.80, TSH 1.26 09/22/24 00:30: Blood Type Confirm A Positive 09/22/24 00:46: Ferritin 6.64 L D, Troponin I < 0.01, Free T4 1.37 09/22/24 04:45: WBC 6.5, RBC 3.23 L, Hgb 6.7 L*, Hct 22.4 L, MCV 69.3 L, MCH 20.7 L, MCHC 29.9 L, RDW 18.4 H, Plt Count 697 H, MPV 8.8, Neut % (Auto) 69.2, Lymph % (Auto) 18.8, [place] % (Auto) 11.0 H, Eos % (Auto) 0.2, Baso % (Auto) 0.5, Neut # (Auto) 4.5, Lymph # (Auto) 1.2, [place] # (Auto) 0.7, Eos # (Auto) 0.0, Baso # (Auto) 0.0, Sodium 136, Potassium 2.9 L* D, Chloride 99, Carbon Dioxide 27, Anion Gap 12.9, BUN 11, Creatinine 0.70, Estimated Creat Clear 45, Estimated GFR 84, Est GFR ( Amer) 101, Glucose 115 H, Calcium 8.6, Magnesium 2.1, Total Bilirubin 0.3, AST 33, ALT 13 D, Alkaline Phosphatase 139 H, Total Protein 7.4, Albumin 3.8, Globulin 3.6 H, Albumin/Globulin Ratio 1.1, Blood Type A Positive, Antibody Screen Negative, Crossmatch ([facility]) See Detail 09/22/24 18:56: Hgb 10.4 L D, Hct 32.6 L I & O for Labs for Last 24 Hours: Intake & Output 09/19/24 09/20/24 09/21/24 09/22/24 23:59 23:59 23:59 23:59 Intake Total 917 / 917 Output Total 600 / 600 Balance 317 / 317 Weight 52.163 kg 51.755 kg Constitutional: Present no acute distress, thin, chronically ill appearing and cooperative Head: Present atraumatic and normocephalic ENT: Present normal exam Neck: Present normal inspection Respiratory: Present normal respiratory effort; Absent rhonchi, wheezes or crackles Cardiac: Present Reg Rate and Rhythm GI: Present soft and normal bowel sounds; Absent distention or tenderness Extremities: Present normal inspection and full ROM Skin: Present intact and pallor; Absent erythema Neuro: Present Grossly Intact, alert, awake, oriented x 3 and moves all extremities Assessment and Plan *Assessment and plan (1) Iron deficiency anemia: Status: Acute Category: Medical Code(s): D50.9 - Iron deficiency anemia, unspecified (2) Generalized weakness: Status: Acute Category: Medical Code(s): R53.1 - Weakness (3) URI (upper respiratory infection): Status: Acute Category: Medical Code(s): J06.9 - Acute upper respiratory infection, unspecified (4) Lower extremity weakness: Status: Acute Category: Medical Code(s): R29.898 - Other symptoms and signs involving the musculoskeletal system (5) Right knee pain: Status: Acute Category: Medical Code(s): M25.561 - Pain in right knee (6) Acute on chronic anemia: Status: Acute Category: Medical Code(s): D64.9 - Anemia, unspecified (7) Anal carcinoma: Status: Acute Category: Medical Code(s): C21.0 - Malignant neoplasm of anus, unspecified Plan Florencia Waller is a 64-year-old female with a medical history significant for 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 She states she has been having nasal congestion, rhinorrhea, diarrhea for the past several days that is making her hard to breathe through the nose. Patient was getting ready to be discharged, however she admitted that she is not able to ambulate well. She endorses lower extremity weakness ongoing for about a year due to right knee pain and that she has had recurrent falls at home. She lives in a camper, and moved out of her big house as it was too big to walk around. She states her son helps with groceries and other errands however not so much recently has he has a new girlfriend. In fact, multiple attempts were made to contact son by ED to no avail. Workup in the ED significant for hemoglobin 7.2, MCV 69.1, AGAP 16, BNP 1120, CXR without acute findings. Case discussed with ED provider and decision was made to admit patient for lower extremity weakness, physical deconditioning, inability to take care of herself at home, acute on chronic anemia. Receiving blood this morning. GI consulting. Continues to require patient management. Problems addressed as follows: #Acute on chronic microcytic anemia #History of renal carcinoma ? History of anal carcinoma the patient states is in remission in early 2023 after chemo, radiation therapy. Follows with Dr. Dumont. ? Hemoglobin 7.2, MCV 69.1 on admission. Iron studies indicate severe iron deficiency, ferritin 6.64. ? Patient denies bleeding, but she also states she does not look at her stool. ? Patient found to have microcytic anemia with iron deficiency. Marked change in hemoglobin and hematocrit from April of this year. Down from 12.2 and 37.6- 6.7 and 22.4. - Discussed case with GI, recommend colonoscopy given patient's history of r ectal cancer and microcytic anemia. Patient however is adamant she does not want any EGD or colonoscopy. - Previous colonoscopy in 2022 had very poor prep per my review of chart. -Transfused 2 units packed red blood cells due to drop in hemoglobin this morning as stated. Repeat H&H ordered for 2 hours posttransfusion. Repeat CBC, CMP, magnesium ordered for the morning. BUN 11, creatinine 0.7. Not suggestive of upper GI bleed. -Will administer Venofer 200 mg IV once. Would benefit from full course of 5 doses given severe iron deficiency with 11% saturation #Generalized weakness #Lower extremity weakness #Right knee pain, osteoarthritis ? Patient endorses due to right knee pain (history of arthritis) she has not been able to walk around much at home. She seems to have gotten physically deconditioned due to this. She states she cannot walk more than 6 steps without falling. ?Knee x-ray shows arthritis. PT and OT evaluated, recommend placement. Case management assisting with referral. #Acute viral syndrome: Respiratory panel negative. #Anxiety ? Apparently has taken Xanax for many years. But has ran out for a few weeks. ?Alprazolam 0.5 mg nightly as needed for anxiety Full code DVT prophylaxis: SCDs due to acute on chronic anemia Regular diet due to no plan for intervention
--- NOTE | 2024-09-22 21:11 | PC.NURSE ---
Bedbugs found in patient's room, reported by SRNAs at this time. Patient will be stripped and cleansed accordingly. Room to be disinfected as well.
--- NOTE | 2024-09-22 21:16 | PC.NURSE ---
Ragini LEMA was notified [id number] about patient's request for home medication orders. New orders to be put in accordingly to NOV.
[2024-09-22] MEDS: PANTOPRAZOLE 40MG VIAL 40 MG IV (21:54)
[2024-09-22] MEDS: SODIUM CHLORIDE 0.9% 10ML VIAL 10 ML IV (21:54)
[2024-09-22] MEDS: APAP/HYDROCODONE 325MG/7.5MG TAB 1 TAB PO (22:25)
[2024-09-22] MEDS: ALPRAZolam 0.5MG TABLET 0.5 MG PO (22:25)
[2024-09-22] MEDS: ONDANSETRON 4MG/2ML VIAL 4 MG IV (23:15)
[2024-09-23 04:00] VITALS: BP 109/76; PULSE 96; RESP 18; TEMP 37.1; O2SAT 96; BMI 22.1
--- NOTE | 2024-09-23 04:22 | PC.NURSE ---
Patient is alert and oriented x4. Patient was observed to have wakeful periods and restful periods (eyes closed, respirations even and unlabored on room air) throughout the night. She stated this morning that she was finally able to get 4 hours of sleep (from midnight to now). She had complaints of nausea and epigastria discomfort, generalized pain, and shoulders/neck pain during this shift. Patient was given Zofran per NOV, was encouraged to eat a couple packets of crackers, and suggested to drink Malu Olga. At this time, the patient does not have any complaints of nausea or epigastria discomfort. Patient was given Xanax per NOV and one dose of [place] for her pain; patient reported relief. Other scheduled medications were administered per NOV. She continues to report a diminished appetite; she was encouraged to eat a snack before bedtime, dinner tray was kept at the bedside. Auscultation of her heart (regular this shift), lungs, and bowels were within normal findings. Contusions/scabs on forearms and one on her forehead observed. Patient does not report an urge to void this morning; patient encouraged to drink more fluids as well. She continues to report having an inability to walk, but is able to pivot with assistance to use the bedside commode. At this time, the patient is sitting up in bed attempting to eat more food off of her tray. She does not have any further complaints. Vital signs stable. Bed alarm on. Call light within reach. Contact precautions for bedbugs (see prior note), sticky pad outside room door.
[2024-09-23 06:33] LABS: Basophils % 0.6 % (0.1-2.0); Eosinophils % 0.3 % (0.1-12.0); Hematocrit 32.1 % (37.0-47.0); Lymphocytes % 14.9 % (10-50); Mean Corpuscular HGB Conc 31.2 g/dL (31.8-35.4); Mean Corpuscular Hemoglobin 23.1 pg (27.0-31.2); Mean Corpuscular Volume 74.3 fl (81-99); Mean Platelet Volume 8.9 fl (7.4-10.4); Monocytes # 1.1 K/mm3 (0.1-1.0); Monocytes % 15.9 % (1.7-9.3); Neutrophils # 4.7 K/mm3 (1.8-7.8); Platelet Count 414 K/mm3 (142-424); Red Blood Count 4.32 M/mm3 (4.20-5.40); Red Cell Distribution Width 18.8 % (11.5-17.5); White Blood Count 6.9 K/mm3 (4.8-10.8)
[2024-09-23 06:48] LABS: Alanine Aminotransferase 12 U/L (12-78); Albumin Level 2.6 g/dl (3.5-5.0); Albumin/Globulin Ratio 0.9 (1.1-1.8); Alkaline Phosphatase 88 U/L (38-126); Anion Gap 7.4 mEq/L (5-15); Aspartate Amino Transferase 30 U/L (14-36); Blood Urea Nitrogen 13 mg/dl (7-17); Carbon Dioxide 25 mmol/L (22.0-30.0); Chloride 104 mmol/L (98-107); Creatinine Clearance Estimated 51 mL/min (50-200); Estimated Glomerular Filt Rate 100 ml/min (>60); GFR (African American) 121 ML/MIN (>60); Globulin 2.9 g/dL (1.3-3.2); Glucose 96 mg/dl (74-100); Magnesium 2.1 mg/dl (1.6-2.3); Potassium 3.4 mmoL/L (3.5-5.1); Sodium 133 mmol/L (136-145); Total Protein,Serum 5.5 g/dl (6.3-8.2)
[2024-09-23 06:49] LABS: Bilirubin,Total < 0.1 mg/dl (0.2-1.3)
[2024-09-23 07:48] VITALS: BP 91/71; PULSE 95; RESP 18; TEMP 36.8; O2SAT 92
[2024-09-23] MEDS: IRON SUCROSE COMPLEX 200 MG in 0.9 % SODIUM CHLORIDE 100 ML 220 MG IV (08:02)
[2024-09-23] MEDS: LORATADINE 10MG TABLET 10 MG PO (08:03)
--- NOTE | 2024-09-23 09:25 | EXP.DC.SUM ---
General Admission date:: 09/22/24 Discharge date: 09/23/24 HPI HPI HPI: Mrs. Waller is a 64-year-old female who was admitted for upper respiratory symptoms. The patient did have lab work this morning showing hemoglobin 6.7 and hematocrit 22.4. The patient did have a colonoscopy with Dr. Huang Panchal M.D. in July 2023 and had a complex ulcerative fungating anorectal mass lesion and biopsies confirmed anal cell carcinoma. The patient has received radiation therapy and chemotherapy and has been followed by Dr. Olivier Dumont. The patient states that she admittedly has not gone back for follow-up or surveillance. Her colonoscopy in July 2023 had shown an exceptionally poor bowel preparation so visualization of the colon was not complete. As we are discussing plans for possible colonoscopy or even sigmoidoscopy, the patient clearly does not want to proceed with further diagnostic testing and states that if she does have cancer she is unconcerned and does not want to even know. The patient reports no rectal bleeding or hematochezia. She has had no change in bowel habits. Hospital Course Hospital Course Hospital Course: Florencia Waller is a 64-year-old female with a medical history significant for 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 She states she has been having nasal congestion, rhinorrhea, diarrhea for the past several days that is making her hard to breathe through the nose. Patient was getting ready to be discharged, however she admitted that she is not able to ambulate well. She endorses lower extremity weakness ongoing for about a year due to right knee pain and that she has had recurrent falls at home. She lives in a camper, and moved out of her big house as it was too big to walk around. She states her son helps with groceries and other errands however not so much recently has he has a new girlfriend. In fact, multiple attempts were made to contact son by ED to no avail. Workup in the ED significant for hemoglobin 7.2, MCV 69.1, AGAP 16, BNP 1120, CXR without acute findings. Case discussed with ED provider and decision was made to admit patient for lower extremity weakness, physical deconditioning, inability to take care of herself at home, acute on chronic anemia. Receiving blood this morning. GI was consulted. Patient has no desire for any workup. Responded well to transfusion. Has had some urinary retention. This is not a new problem for her but more problematic during this admission. Joe placed on day of discharge. Will follow-up with GI and urology as an outpatient. Stable to discharge to rehab for further management. #Acute on chronic microcytic anemia #History of renal carcinoma ? History of anal carcinoma the patient states is in remission in early 2023 after chemo, radiation therapy. Follows with Dr. Dumont. Hemoglobin 7.2, MCV 69.1 on admission. Iron studies indicate severe iron deficiency, ferritin 6.64. Patient denies bleeding, but she also states she does not look at her stool. Patient found to have microcytic anemia with iron deficiency. Marked change in hemoglobin and hematocrit from April of this year. Down from 12.2 and 37.6 to 6.7 and 22.4. Transfused 2 units. Responded well. Hemoglobin remained stable on morning of discharge at 10. BUN 13, creatinine 0.6. Does not support upper GI source of bleeding. No bloody stools noted during admission. As she does not want further workup, stable to discharge to rehab. Discussed case with GI, recommend colonoscopy given patient's history of rectal cancer and microcytic anemia. Patient however is adamant she does not want any EGD or colonoscopy. Previous colonoscopy in 2022 had very poor prep per my review of chart. -Received dose of Venofer 200 mg IV once on morning of discharge. Would benefit from full course of 5 doses given severe iron deficiency with 11% saturation #Generalized weakness #Lower extremity weakness #Right knee pain, osteoarthritis ? Patient endorses due to right knee pain (history of arthritis) she has not been able to walk around much at home. She seems to have gotten physically deconditioned due to this. She states she cannot walk more than 6 steps without falling. Knee x-ray shows arthritis. PT and OT evaluated, recommend placement. Case management assisting with referral. Urinary retention: Patient reports history of having her urethra stretched and stones as a kid. Difficulty voiding during admission. In and out cath on 09/22. Has not voided since. Has over 400 cc in her bladder. Will place Joe catheter and refer to urology as an outpatient for further evaluation for possible urethral stretching. #Anxiety ? Apparently has taken Xanax for many years. But has ran out for a few weeks. Alprazolam 0.5 mg nightly as needed for anxiety Total time spent on discharge 32 minutes in counseling, documentation, chart review, and direct care with patient. Exam Data for Last 24 hours Vital signs and Labs for Last 24 Hours: Temp Pulse Resp BP Pulse Ox O2 Del Method 98.2 F 95 H 18 91/71 L 92 L Room Air 09/23/24 07:48 09/23/24 07:48 09/23/24 07:48 09/23/24 07:48 09/23/24 07:48 09/23/24 07:48 Laboratory Results - last 24 hr 09/21/24 16:42: Urine Color Yellow, Urine Appearance Clear, Urine pH 7.5, Ur Specific Carman 1.015, Urine Protein Negative, Urine Glucose (UA) Negative, Urine Ketones Negative, Urine Blood Negative, Urine Nitrate Negative, Urine Bilirubin Negative, Urine Urobilinogen 0.2, Ur Leukocyte Esterase Negative, Urine RBC 3-5, Urine WBC 3-5, Ur Squamous Epith Cells 3-5, Urine Mucus 3+, Urine Opiates Screen Positive H, Urine Methadone Screen Negative, Ur Barbituates Screen Negative, Ur Phencyclidine Scrn Negative, Ur Amphetamines Screen Negative, U Benzodiazepines Scrn Negative, Urine Cocaine Screen Negative, U Marijuana (THC) Screen Negative 09/22/24 04:45: Blood Type A Positive, Antibody Screen Negative, Crossmatch (AHG) See Detail 09/22/24 18:56: Hgb 10.4 L D, Hct 32.6 L 09/23/24 06:12: WBC 6.9, RBC 4.32 D, Hgb 10.0 L, Hct 32.1 L, MCV 74.3 L, MCH 23.1 L, MCHC 31.2 L, RDW 18.8 H, Plt Count 414 D, MPV 8.9, Neut % (Auto) 68.0, Lymph % (Auto) 14.9, [place] % (Auto) 15.9 H, Eos % (Auto) 0.3, Baso % (Auto) 0.6, Neut # (Auto) 4.7, Lymph # (Auto) 1.0, [place] # (Auto) 1.1 H, Eos # (Auto) 0.0, Baso # (Auto) 0.0, Sodium 133 L, Potassium 3.4 L, Chloride 104, Carbon Dioxide 25, Anion Gap 7.4, BUN 13, Creatinine 0.60, Estimated Creat Clear 51, Estimated GFR 100, Est GFR ( Amer) 121, Glucose 96, Calcium 8.0 L, Magnesium 2.1, Total Bilirubin < 0.1 L, AST 30, ALT 12, Alkaline Phosphatase 88, Total Protein 5.5 L D, Albumin 2.6 L D, Globulin 2.9, Albumin/Globulin Ratio 0.9 L I & O for Last 24 hours: Intake & Output 09/20/24 09/21/24 09/22/24 09/23/24 23:59 23:59 23:59 23:59 Intake Total 917 / 1097 180 / 180 Output Total 600 / 600 Balance 317 / 497 180 / 180 Weight 52.163 kg 51.755 kg 58.831 kg Constitutional Constitutional: no acute distress, average body habitus, chronically ill appearing and cooperative *Routine HEENT Exam Head: Present normocephalic Eye: Present EOMI and PERRL ENT: Present mucous membranes moist Comments: Small abrasion right forehead nickel sized, present on admission *Routine Neck Exam Neck: Present supple; Absent lymphadenopathy *Routine Respiratory Exam Respiratory: Present CTA bilaterally; Absent respiratory distress, rhonchi, wheezes or crackles *Routine Cardiovascular Exam Cardiovascular: Present RRR *Routine Abdominal Exam Abdominal: Present soft and normoactive bowel sounds; Absent tenderness *Routine Rectal Exam Patient deferred: visual exam *Routine Exam Patient deferred: external exam Comments: Urinary retention necessitating Joe placement. *Routine Extremities Exam Extremities: Absent cyanosis, clubbing or edema *Routine Skin Exam Skin: Present warm; Absent rash *Routine Neurological Exam Neurological: Present alert, oriented X3 and moving all extremities; Absent altered mental status Results Data Completed and Pending Labs on day of discharge: Labs from last 24 hours 09/23/24 09/22/24 09/22/24 06:12 18:56 04:45 WBC 6.9 RBC 4.32 D Hgb 10.0 L 10.4 L D Hct 32.1 L 32.6 L MCV 74.3 L MCH 23.1 L MCHC 31.2 L RDW 18.8 H Plt Count 414 D MPV 8.9 Neut % (Auto) 68.0 Lymph % (Auto) 14.9 [place] % (Auto) 15.9 H Eos % (Auto) 0.3 Baso % (Auto) 0.6 Neut # (Auto) 4.7 Lymph # (Auto) 1.0 [place] # (Auto) 1.1 H Eos # (Auto) 0.0 Baso # (Auto) 0.0 Sodium 133 L Potassium 3.4 L Chloride 104 Carbon Dioxide 25 Anion Gap 7.4 BUN 13 Creatinine 0.60 Estimated Creat Clear 51 Estimated GFR 100 Est GFR ( Amer) 121 Glucose 96 Calcium 8.0 L Magnesium 2.1 Total Bilirubin < 0.1 L AST 30 ALT 12 Alkaline Phosphatase 88 Total Protein 5.5 L D Albumin 2.6 L D Globulin 2.9 Albumin/Globulin Ratio 0.9 L Urine Color Urine Appearance Urine pH Ur Specific Car[place] Urine Protein Urine Glucose (UA) Urine Ketones Urine Blood Urine Nitrate Urine Bilirubin Urine Urobilinogen Ur Leukocyte Esterase Urine RBC Urine WBC Ur Squamous Epith Cells Urine Mucus Urine Opiates Screen Urine Methadone Screen Ur Barbituates Screen Ur Phencyclidine Scrn Ur Amphetamines Screen U Benzodiazepines Scrn Urine Cocaine Screen U Marijuana (THC) Screen Blood Type A Positive Antibody Screen Negative Crossmatch ([facility]) See Detail 09/21/24 16:42 WBC RBC Hgb Hct MCV MCH MCHC RDW Plt Count MPV Neut % (Auto) Lymph % (Auto) [place] % (Auto) Eos % (Auto) Baso % (Auto) Neut # (Auto) Lymph # (Auto) [place] # (Auto) Eos # (Auto) Baso # (Auto) Sodium Potassium Chloride Carbon Dioxide Anion Gap BUN Creatinine Estimated Creat Clear Estimated GFR Est GFR ( Amer) Glucose Calcium Magnesium Total Bilirubin AST ALT Alkaline Phosphatase Total Protein Albumin Globulin Albumin/Globulin Ratio Urine Color Yellow Urine Appearance Clear Urine pH 7.5 Ur Specific [place] 1.015 Urine Protein Negative Urine Glucose (UA) Negative Urine Ketones Negative Urine Blood Negative Urine Nitrate Negative Urine Bilirubin Negative Urine Urobilinogen 0.2 Ur Leukocyte Esterase Negative Urine RBC 3-5 Urine WBC 3-5 Ur Squamous Epith Cells 3-5 Urine Mucus 3+ Urine Opiates Screen Positive H Urine Methadone Screen Negative Ur Barbituates Screen Negative Ur Phencyclidine Scrn Negative Ur Amphetamines Screen Negative U Benzodiazepines Scrn Negative Urine Cocaine Screen Negative U Marijuana (THC) Screen Negative Blood Type Antibody Screen Crossmatch (AHG) DS: Diagnosis Discharge Diagnosis (1) Iron deficiency anemia: Status: Acute Code(s): D50.9 - Iron deficiency anemia, unspecified (2) Generalized weakness: Status: Acute Code(s): R53.1 - Weakness (3) URI (upper respiratory infection): Status: Acute Code(s): J06.9 - Acute upper respiratory infection, unspecified (4) Lower extremity weakness: Status: Acute Code(s): R29.898 - Other symptoms and signs involving the musculoskeletal system (5) Right knee pain: Status: Acute Code(s): M25.561 - Pain in right knee (6) Acute on chronic anemia: Status: Acute Code(s): D64.9 - Anemia, unspecified (7) Anal carcinoma: Status: Acute Code(s): C21.0 - Malignant neoplasm of anus, unspecified (8) Acute urinary retention: Status: Acute Code(s): R33.8 - Other retention of urine Meds Home Medications and Allergies Home Medications ?Medication ?Instructions ?Recorded ?Confirmed ?Type cetirizine 10 mg tablet 10 mg PO DAILY PRN ALLERGIES 09/22/24 09/22/24 History alprazolam 0.5 mg tablet 0.5 mg PO HSP PRN Anxiety 3 days 09/23/24 Rx #3 tabs hydrocodone 5 mg-acetaminophen 325 1 tab PO Q6H PRN pain #11 tabs 09/23/24 Rx mg tablet hydrocodone 7.5 mg-acetaminophen 1 tab PO Q6HP PRN Moderate To 09/23/24 Rx 325 mg tablet Severe Pain (4-10) 30 days #120 tabs pantoprazole 40 mg tablet,delayed 40 mg PO DAILY #3 tabs 09/23/24 Rx release pantoprazole 40 mg tablet,delayed 40 mg PO DAILY #30 tabs 09/23/24 Rx release New Prescriptions to Start Prescriptions: alprazolam Tuan,Sergio hydrocodone-acetaminophen Tuan,Sergio hydrocodone-acetaminophen Tuan,Sergio pantoprazole Tuan,Sergio pantoprazole Tuan,Sergio Allergies Allergy/AdvReac Type Severity Reaction Status Date / Time Penicillins Allergy Severe S-SWELLS-OR Verified 04/20/24 13:45 AL/THROAT acetaminophen (From Percocet) Allergy Intermediate I-HIVES Verified 04/20/24 13:45 aspirin (From Percodan) Allergy Intermediate I-HIVES; Verified 04/20/24 13:45 HALLUCINATIONS codeine Allergy Intermediate I-RASH Verified 04/20/24 13:45 egg (From EGGS (FOOD/DRUG)) Allergy Intermediate I-RASH Verified 04/20/24 13:45 morphine Allergy Intermediate I-RASH Verified 04/20/24 13:45 oxycodone (From Percodan) Allergy Intermediate I-HIVES; Verified 04/20/24 13:45 HALLUCINATIONS venom-honey bee (bee venom Allergy Intermediate I-HIVES Verified 04/20/24 13:45 (honey bee)) etodolac Allergy Unknown Verified 09/23/24 07:25 allergy reaction gabapentin Allergy Unknown Verified 09/23/24 07:25 allergy reaction duloxetine AdvReac Unknown Verified 09/23/24 07:25 allergy reaction fluoxetine AdvReac Unknown Verified 09/23/24 07:25 allergy reaction Discharge Plan Disposition Patient Disposition: Xfer SNF Condition: Good Discharge Order Discharge Orders: Discharge Order (Routine); Ordered 09/23/24 Ordered By: Sergio Dickerson Follow up Plan Follow up with: Billy Mcintyre II, MD [Staff Physician] - Enter time for follow up Cam Daigle MD [Staff Physician] - Enter time for follow up (As soon as possible. Urethral stricture. Has had stretching in the past. History of rectal carcinoma status-post radiation therapy.) Prescriptions/Medication Reconciliation: New hydrocodone-acetaminophen 7.5-325 mg Tablet 1 tab PO Q6HP PRN (Reason: Moderate To Severe Pain (4-10)) 30 Days Qty: 120 0RF pantoprazole 40 mg tablet,delayed release (DR/EC) 40 mg PO DAILY Qty: 30 0RF pantoprazole 40 mg tablet,delayed release (DR/EC) 40 mg PO DAILY Qty: 3 0RF hydrocodone-acetaminophen 5-325 mg tablet 1 tab PO Q6H PRN (Reason: pain) Qty: 11 0RF alprazolam 0.5 mg Tablet 0.5 mg PO HSP PRN (Reason: Anxiety) 3 Days Qty: 3 0RF Continued cetirizine 10 mg Tablet 10 mg PO DAILY PRN (Reason: ALLERGIES) Discontinued hydrocodone-acetaminophen 7.5-325 mg Tablet 1 - 2 tab PO TID PRN (Reason: Pain) Problem Reconciliation Problems Reviewed?: Yes Patient Discharge Instructions ACTIVITY: Continue current activity DIET: continue same diet Patient Instructions: Anemia, DI for Failure to Thrive Print Language: Stateless Providers Primary Care Provider: Bayron Loo Admit Provider: Cam Barnard Attending Provider: Cam Barnard
[2024-09-23] MEDS: APAP/HYDROCODONE 325MG/7.5MG TAB 1 TAB PO (10:35)
== END 2024-09-23 13:44 ==
LOC: ER 23:18 → 2ND 23:47
PROVIDERS: Internal Medicine Adolescent Medicine; Physician Assistant; Admitting Provider Student in an Organized Health Care Education/Training Program; Emergency Provider Emergency Medicine; PCP Family Medicine; Visit Provider Student in an Organized Health Care Education/Training Program
DX: R53.1 Weakness (principal); J06.9 Acute upper respiratory infection, unspecified; R33.8 Other retention of urine; D50.9 Iron deficiency anemia, unspecified; C21.0 Malignant neoplasm of anus, unspecified; J34.89 Other specified disorders of nose and nasal sinuses; Z91.81 History of falling; B88.8 Other specified infestations; M17.11 Unilateral primary osteoarthritis, right knee; F41.9 Anxiety disorder, unspecified; Z91.199 Patient's noncompliance with other medical treatment and regimen due to unspecified reason
CPT/HCPCS: 36415; 71045; 73562; 80053; 80307; 80320; 81001; 82607; 82728; 82746; 83540; 83550; 83690; 83735; 83880; 84439; 84443; 84484; 85014; 85018; 85025; 86803; 86850; 87389; 87636; 93005; 97162; 97166; 97530; 99285; G0378; G0480; J1756; J2405; P9016

== ENCOUNTER 2024-12-07 23:30 | Observation (INO) | payer MEDICARE, SELFPAY ==
[2024-12-07 23:32] VITALS: BP 118/71; PULSE 111; RESP 20; TEMP 36.8; O2SAT 97; BMI 21.9
--- NOTE | 2024-12-07 23:44 | XR_ITS ---
PROCEDURE INFORMATION: Exam: XR Chest Exam date and time: 12/07/2024 11:52 PM Age: 64 years old Clinical indication: Cough; Additional info: Cough SOA reported pna per pcp TECHNIQUE: Imaging protocol: Radiologic exam of the chest. Views: 1 view. COMPARISON: CR XR CHEST PORTABLE 09/21/2024 6:19 PM FINDINGS: Lungs: Perihilar and peripheral poorly defined opacities. Pleural spaces: Smoothly marginated right lateral density along lateral chest measuring 1.3 x 5.6 cm. Heart/Mediastinum: Unremarkable. No cardiomegaly. Bones/joints: Unremarkable. IMPRESSION: 1. Bilateral, multifocal infiltrations. 2. Left lateral chest mass versus artifact from prominent subpleural fat or from chronic injury.
[2024-12-07] MEDS: LACTATED RINGERS 1000ML 1,000 ML 999 ML IV (23:50)
--- NOTE | 2024-12-07 23:51 | ECG_ITS ---
APPROVED REPORT Exam: Resting ECG HR:104 bpm ECG Measurements Heart Rate 104 AXES MD 162 P 76 QRSd 80 QRS 82 QT 230 T 34 QTc 291 Conclusion SINUS TACHYCARDIA NONSPECIFIC T-WAVE ABNORMALITY ABNORMAL RHYTHM ECG no STEMI Electronically signed by : ROSENDO DIOP, 12/08/2024 07:06:03
[2024-12-07 23:52] LABS: Basophils # 0.1 K/mm3 (0-0.2); Basophils % 0.8 % (0.1-2.0); Eosinophils # 0.1 K/mm3 (0.0-0.4); Eosinophils % 0.9 % (0.1-12.0); Hematocrit 35.2 % (37.0-47.0); Hemoglobin 11.6 g/dL (12.2-16.2); Lymphocytes # 1.8 K/mm3 (0.7-4.5); Lymphocytes % 23.1 % (10-50); Mean Corpuscular Hemoglobin 26.8 pg (27.0-31.2); Mean Corpuscular Volume 81.3 fl (81-99); Mean Platelet Volume 8.6 fl (7.4-10.4); Monocytes # 0.9 K/mm3 (0.1-1.0); Monocytes % 11.4 % (1.7-9.3); Neutrophils % 63.7 % (37.0-80.0); Platelet Count 525 K/mm3 (142-424); Red Blood Count 4.33 M/mm3 (4.20-5.40); Red Cell Distribution Width 19.3 % (11.5-17.5); White Blood Count 7.8 K/mm3 (4.8-10.8)
[2024-12-07 23:59] LABS: Alanine Aminotransferase 10 U/L (12-78); Albumin/Globulin Ratio 1.1 (1.1-1.8); Alkaline Phosphatase 83 U/L (38-126); Aspartate Amino Transferase 33 U/L (14-36); Bilirubin,Total 0.4 mg/dl (0.2-1.3); Blood Urea Nitrogen 13 mg/dl (7-17); Carbon Dioxide 29 mmol/L (22.0-30.0); Chloride 95 mmol/L (98-107); Creatinine Clearance Estimated 48 mL/min (50-200); Estimated Glomerular Filt Rate 72 ml/min (>60); GFR (African American) 87 ML/MIN (>60); Globulin 3.8 g/dL (1.3-3.2); Glucose 107 mg/dl (74-100); Sodium 134 mmol/L (136-145); Total Protein,Serum 7.8 g/dl (6.3-8.2)
[2024-12-08] VITALS (15 sets, daily range): BP systolic 94–154; BP diastolic 58–98; PULSE 74–131; RESP 16–20; TEMP 36.5–37.1; O2SAT 90–98; BMI 26.2
[2024-12-08 00:07] LABS: Lactate Venous 1.8 mmol/L (0.4-2.0); VBG Base Excess 1.3 mmol/L (-2.4-2.3); VBG HCO3 25.5 mmol/L (23-30); VBG Oxygen Saturation 82.5 % (50-70); VBG PCO2 38.5 mmol/L (35-51); VBG PH 7.44 mmol/L (7.31-7.41); VBG PO2 47.1 mmol/L (28-40); VBG Total CO2 26.7 mmol/L (23-27)
[2024-12-08 00:12] LABS: Troponin I < 0.01 ng/ml (0.00-0.034)
--- NOTE | 2024-12-08 00:15 | PC.NURSE ---
gay consult called to Nicholas Mayberry
[2024-12-08] MEDS: CEFEPIME HCL 2 GM in 0.9 % SODIUM CHLORIDE 100 ML IV ×2 (00:17→12:13)
[2024-12-08] MEDS: LACTATED RINGERS 1000ML 600 ML 999 ML IV (00:18)
[2024-12-08] MEDS: VANCOMYCIN CONSULT REQUEST 1 EACH NOTAPPLIC (00:18)
--- NOTE | 2024-12-08 00:18 | ED_ITS ---
Discharge Plan Disposition Patient Disposition: Admitted Condition: Fair Prescriptions Prescriptions: No Action ferrous sulfate [Iron (ferrous sulfate)] 325 mg (65 mg iron) tablet 325 mg PO BID bisacodyl [Dulcolax (bisacodyl)] 5 mg tablet,delayed release (DR/EC) 5 mg PO BID PRN (Reason: constipation) 90 Days Qty: 180 0RF acetaminophen 500 mg capsule 500 mg PO Q6H PRN (Reason: fever or pain) Qty: 90 0RF alprazolam 0.5 mg tablet 0.5 mg PO TID Qty: 90 2RF hydrocodone-acetaminophen 7.5-325 mg tablet 1 tab PO Q6HP PRN (Reason: Moderate To Severe Pain (4-10)) 30 Days Qty: 120 0RF cetirizine 10 mg Tablet 10 mg PO DAILY PRN (Reason: ALLERGIES) pantoprazole 40 mg tablet,delayed release (DR/EC) 40 mg PO DAILY Qty: 30 0RF Clinical Impressions Clinical Impression: Sepsis, Pneumonia Print Language Print Language: Tamazight Discharge ED Provider: Haley Moreno General Adult HPI General Chief complaint: Shortness of Breath/Dyspnea Stated complaint: Pneumonia with decreased O2 sats Time Seen by Provider: 12/07/24 23:32 Mode of Arrival: EMS Source of Information: Patient and EMS Description of Symptoms (Recalled from ER Triage Doc. by RN): Pt arrived via ems from [facility] for reports of soa. Questionable PNA per xray at facility. pt a&o, resps evn and nonalabored History of Present Illness HPI narrative: 64-year-old female presents via EMS from [facility] with concerns of shortness of breath, pneumonia per x-ray performed at the facility. EMS reports patient was borderline hypoxic when they picked her up and she was wheezing so they administered 1 DuoNeb and route. Patient reports no cardiac or pulmonary history. Never a smoker. She reports she has been feeling under the weather since Thursday, for the last 5 to 6 days. She states she has had a cough and that the right side of her chest hurts when she coughs. She denies any dizziness, numbness, tingling, weakness, abdominal pain, vomiting, diarrhea, etc. She has no other complaints or concerns at this time. She reports that she did not hear the results of her chest x-ray but EMS reports that doctor told by and reviewed the x-ray and instructed the facility to send her to the ER for evaluation. Review of facility records demonstrates patient has not been started on any antibiotics. Related Data Home Medications ?Medication ?Instructions ?Recorded ?Confirmed cetirizine 10 mg tablet 10 mg PO DAILY PRN ALLERGIES 09/22/24 11/16/24 ferrous sulfate 325 mg (65 mg 325 mg PO BID 11/16/24 11/16/24 iron) tablet (Iron (ferrous sulfate)) Previous Rx's ?Medication ?Instructions ?Recorded pantoprazole 40 mg tablet,delayed 40 mg PO DAILY #30 tabs 09/23/24 release acetaminophen 500 mg capsule 500 mg PO Q6H PRN fever or pain 10/12/24 #90 caps bisacodyl 5 mg tablet,delayed 5 mg PO BID PRN constipation 90 10/12/24 release (Dulcolax (bisacodyl)) days #180 tabs alprazolam 0.5 mg tablet 0.5 mg PO TID Anxiety #90 tabs 11/14/24 hydrocodone 7.5 mg-acetaminophen 1 tab PO Q6HP PRN Moderate To 11/25/24 325 mg tablet Severe Pain (4-10) 30 days #120 tabs Allergies Allergy/AdvReac Type Severity Reaction Status Date / Time Penicillins Allergy Severe S-SWELLS-OR Verified 12/07/24 23:36 AL/THROAT acetaminophen (From Percocet) Allergy Intermediate I-HIVES Verified 12/07/24 23:36 aspirin (From Percodan) Allergy Intermediate I-HIVES; Verified 12/07/24 23:36 HALLUCINATIONS codeine Allergy Intermediate I-RASH Verified 12/07/24 23:36 egg (From EGGS (FOOD/DRUG)) Allergy Intermediate I-RASH Verified 12/07/24 23:36 morphine Allergy Intermediate I-RASH Verified 12/07/24 23:36 oxycodone (From Percodan) Allergy Intermediate I-HIVES; Verified 12/07/24 23:36 HALLUCINATIONS venom-honey bee (bee venom Allergy Intermediate I-HIVES Verified 12/07/24 23:36 (honey bee)) etodolac Allergy Unknown Verified 12/07/24 23:36 allergy reaction gabapentin Allergy Unknown Verified 12/07/24 23:36 allergy reaction duloxetine AdvReac Unknown Verified 12/07/24 23:36 allergy reaction fluoxetine AdvReac Unknown Verified 12/07/24 23:36 [facility] Disclaimer: The information contained in this section may have been updated after the patient was seen, as this information can be updated by other users. Medical History (Updated 12/08/24 @ 00:18 by Haley Moreno MD) Anxiety disorder Osteoarthritis, knee Primary carcinoma of anal canal Alcohol use Anal squamous cell carcinoma Pedal edema Medical clearance for incarceration Surgical History History of tonsillectomy Hx of local excision of skin lesion Hx of esophagogastroduodenoscopy Family History Other CREST syndrome Family history of TIAs Family history of cancer Social History Smoking Status: Never smoker alcohol intake: former substance use type: denies use current occupational status: retired Travel in the last 8 weeks: None household members: other number of children: 2 Other Medical History Have you received the Flu Vaccine for this season: No Have you received the Pneumonia Vaccine: No ROS Obtained: Yes Systems reviewed as appropriate & no additional complaints except as documented Per HPI Physical Exam General General appearance: alert and in no apparent distress Head Head exam: atraumatic and normocephalic Eye Eye exam: Present PERRL and EOMI ENT ENT exam: Present mucous membranes moist Neck Neck exam: Present normal inspection and full ROM Chest Chest inspection: Present symmetric chest wall rise Respiratory Respiratory exam: Present wheezes (There is an expiratory wheezing but it sounds upper airway and I do not appreciate it in the lung cook) and other (Currently saturating 95% on room air); Absent normal lung sounds bilaterally (Rhonchi and rales in bilateral lungs), respiratory distress or stridor Cardiovascular Cardiovascular exam: Present normal rhythm and tachycardia Abdominal Exam Abdominal exam: Present soft; Absent distention or tenderness Extremities Exam Extremities exam: Present full ROM; Absent edema Neurological Exam Neurological exam: Present alert and oriented X3; Absent motor sensory deficit Psychiatric Psychiatric exam: Present normal affect and normal mood Skin Skin exam: Present warm and dry Medical Decision Making Medical Records Medical records reviewed: Yes I reviewed the patient's medical records. Screening: Per USPSTF and CDC recommendations, given the prevalence of disease in our region, it is our hospital?s policy to screen for HIV and viral Hepatitis for all patients aged 18 and over and those with ongoing risk factors. MR Comment: See HPI Quinn Inquiry Pt receiving controlled substance: No Vital Signs: 12/07/24 23:32 12/08/24 00:00 Temperature 98.3 F Temperature Source Oral Pulse Rate 107 H Pulse Rate [Apical] 111 H Respiratory Rate 20 Blood Pressure 102/71 L Blood Pressure [Right Arm] 118/71 Blood Pressure Mean [Right Arm] 86 02 Sat by Pulse Oximetry 97 95 Oxygen Delivery Method Room Air Room Air Lab Data Lab Results 12/07/24 23:20: WBC 7.8, RBC 4.33, Hgb 11.6 L, Hct 35.2 L, MCV 81.3, MCH 26.8 L, MCHC 33.0, RDW 19.3 H, Plt Count 525 H, MPV 8.6, Neut % (Auto) 63.7, Lymph % (Auto) 23.1, [place] % (Auto) 11.4 H, Eos % (Auto) 0.9, Baso % (Auto) 0.8, Neut # (Auto) 5.0, Lymph # (Auto) 1.8, [place] # (Auto) 0.9, Eos # (Auto) 0.1, Baso # (Auto) 0.1, Sodium 134 L, Potassium 4.0, Chloride 95 L, Carbon Dioxide 29, Anion Gap 14.0, BUN 13, Creatinine 0.80, Estimated Creat Clear 48, Estimated GFR 72, Est GFR ( Amer) 87, Glucose 107 H, Calcium 10.0, Total Bilirubin 0.4, AST 33, ALT 10 L, Alkaline Phosphatase 83, Troponin I < 0.01, Total Protein 7.8 D, Albumin 4.0, Globulin 3.8 H, Albumin/Globulin Ratio 1.1 12/08/24 00:04: VBG pH 7.44 H, VBG pCO2 38.5, VBG pO2 47.1 H, VBG HCO3 25.5, VBG Total CO2 26.7, VBG O2 Saturation 82.5 H, VBG Base Excess 1.3, VBG Lactic Acid 1.8 12/07/24 23:20 12/07/24 23:20 Orders (Tests/Meds): ED MEDICATIONS Generic Name Dose Route Start Last Admin Trade Name Galileoq PRN Reason Stop Dose Admin Lactated Ringer's 1,000 mls @ 999 mls/hr 12/07/24 23:44 12/07/24 23:50 Lactated Ringer's 1000 Ml Bag IV 12/08/24 00:44 999 mls/hr .Q1H1M ONE Administration Cefepime HCl 2 gm/ Sodium 100 mls @ 200 mls/hr 12/08/24 00:12 12/08/24 00:17 Chloride IV 12/08/24 00:41 200 mls/hr ONCE ONE Administration Lactated Ringer's 600 mls @ 999 mls/hr 12/08/24 00:13 12/08/24 00:18 Lactated Ringer's 1000 Ml Bag IV 12/08/24 00:49 999 mls/hr .Q37M ONE Administration Vancomycin/PEG/NADA/Lysine/Water 1.25 gm in 250 mls @ 125 mls/hr 12/08/24 00:30 Vancomycin 1.25gm/250ml (Peg) Premix IV 12/08/24 02:29 ONCE ONE Miscellaneous 1 each 12/08/24 00:15 12/08/24 00:18 Vancomycin Consult Request NOTAPPLIC 01/07/25 00:14 1 each CONSULT PHARMACY RITU Administration ORDERS Category Date Time Status CXR --portable [XR chest portable] Stat Exams 12/07/24 23:44 Taken CBC w/Auto Diff [Complete Blood Count Auto Diff] Stat Lab 12/07/24 23:20 Completed CMP [Comprehensive Metabolic Panel] Stat Lab 12/07/24 23:20 Completed Full Resp Panel w/COVID ([facility]) Routine Lab 12/08/24 00:17 Ordered Lactic Acid Stat Lab 12/07/24 23:44 Ordered Trop I [Troponin I] Stat Lab 12/07/24 23:20 Completed Troponin I Q3H Lab 12/08/24 02:45 Ordered Troponin I Q3H Lab 12/08/24 05:45 Ordered Urinalysis and Microscopic Stat Lab 12/08/24 00:17 Ordered Blood Culture Stat Micro 12/08/24 00:00 Received VBG [Venous Blood Gas] Stat RT 12/08/24 00:04 Completed ECG Request Stat Y 12/07/24 23:44 Ordered Medical Decision Narrative: In summary, this 64-year-old female with history of anal carcinoma, anxiety, among others which may not be at goal therapy presents to the emergency department today with concerns of pneumonia from nursing facility. On initial evaluation patient is tachycardic but otherwise hemodynamically stable, afebrile, no respiratory distress, she does have adventitious sounds in the bilateral lungs with upper airway wheezing saturating well on room air, she is ill-appearing but nontoxic. Differential diagnosis includes but is not limited to viral syndrome, pneumonia, I considered the possibility of ACS with right- sided chest pain but have lower suspicion for this, on arrival patient did not have vitals concerning for sepsis but this was considered. Based on these concerns, I ordered blood cultures, serum labs, chest x-ray since I am unable to view outside facility x-ray, viral swab, urine studies. ECG personally interpreted demonstrates sinus tachycardia, rate 104, normal axis, normal [place] and QTc, no STEMI. Patient received 1 L IV fluid bolus initially for treatment. Patient's blood pressure became soft while in the ER and with her suspected infectious location, I am treating her for sepsis so she received an additional 600 mL to complete 30 mL/kg bolus. Patient is also receiving vancomycin and cefepime for broad- spectrum antibiotic coverage within the limitations of her medication allergies. Labs personally reviewed demonstrate no leukocytosis, WBC 7.8, anemia slightly improved from previous, VBG with pH 7.44, VBG lactic is 1.8, patient does have mild hyponatremia but relatively unchanged from previous, no evidence of kidney dysfunction, initial troponin undetectably low less than 0.01. Chemistry lactic pending. Viral swab and urine studies pending. XR personally interpreted demonstrates multifocal interstitial changes concerning for multifocal pneumonia. Radiology read pending Based on my radiology read, patient's labs and clinical status at this time, believe she requires admission for sepsis and pneumonia. Patient agreeable to this plan. I discussed this case with the hospitalist and patient was accepted in stable condition. Critical Care Critical Care Time Critical Care Time: Yes Attestation: On , the high probability of a clinically significant, sudden or life threatening deterioration of the following system(s) (hemodynamic) required my full and direct attention, intervention and personal management. The time I documented below is in addition to time spent performing reported procedures but includes the following listed in this critical care notation. Total Time Total Critical Care Time: 30
--- NOTE | 2024-12-08 00:39 | P.HP_ITS ---
<Statement entered by Cam Barnard MD - 12/14/24 11:04> I personally examined patient and agree with the plan of care outlined by the [facility]. History of Present Illness *Admission Date: 12/08/24 *Reason for visit:: Not feeling well *History of present illness: This is a 64-year-old female who is known to our service line and has a past medical history significant for anxiety, osteoarthritis, rectal cancer, prior EtOH abuse, generalized weakness, and iron deficiency anemia who presents with a chief complaint of not feeling well since Thursday. Due to patient's symptoms, her nursing facility obtained a chest x-ray which was consistent with pneumonia; as result, patient was transition to the ER for evaluation. While in the emergency room, plain films of patient's chest that show multilobular pneumonia. Patient was nontoxic in appearance; however, she has been admitted. During my evaluation patient, patient states she has had a nonproductive cough, pain with coughing on the right side of her chest that shoots to her back, chills, small amount of wheezing, and not feeling well since Thursday. It is worth mentioning that patient was recently admitted and evaluated for rectal cancer where she refused any endoscopy. Patient did not want to pursue treatment for her cancer. Patient also had some weakness on the prior admission and was living in a camper, so she was transition to the nursing facility she is currently residing in. She is currently denying any chest pain, lightheadedness, dizziness, fever, rigors, nausea, vomiting, PND, orthopnea, lower extremity edema, or diarrhea. Additional pertinent values obtained including hemoglobin 11.6, hematocrit 35.2, platelet count of 525, pH of 7.44, sodium 134, chloride of 95, and blood glucose 107. [facility] Disclaimer: The information contained in this section may have been updated after the patient was seen, as this information can be updated by other users. Medical History (Updated 12/08/24 @ 00:50 by Carlitos Chairez APRN) Anxiety disorder Osteoarthritis, knee Primary carcinoma of anal canal Alcohol use Anal squamous cell carcinoma Pedal edema Medical clearance for incarceration Surgical History History of tonsillectomy Hx of local excision of skin lesion Hx of esophagogastroduodenoscopy Family History Other CREST syndrome Family history of TIAs Family history of cancer Social History Smoking Status: Never smoker alcohol intake: former substance use type: denies use current occupational status: retired Travel in the last 8 weeks: None household members: other number of children: 2 Other Medical History Have you received the Flu Vaccine for this season: No Have you received the Pneumonia Vaccine: No Review of Systems Review of Systems Review of systems:: pertinent systems reviewed and negative unless documented below Constitutional Constitutional: Reports system reviewed and no additional complaints, except as documented Eyes Eyes: Reports system reviewed and no additional complaints, except as documented ENT Ears, Nose, Mouth, and Throat: Reports system reviewed and no additional complaints, except as documented *Cardiovascular Cardiovascular: Reports system reviewed and no additional complaints, except as documented and Reports dyspnea *Respiratory Respiratory: Reports cough and Reports dyspnea *Gastrointestinal Gastrointestinal: Reports system reviewed and no additional complaints, except as documented *Genitourinary Genitourinary: Reports system reviewed and no additional complaints, except as documented *Musculoskeletal Musculoskeletal: Reports muscle weakness Integumentary/Breasts Skin/Breast: Reports system reviewed and no additional complaints, except as documented *Neurologic Neurologic: Reports system reviewed and no additional complaints, except as documented Psychiatric Psychiatric: Reports system reviewed and no additional complaints, except as documented Endocrine Endocrine: Reports system reviewed and no additional complaints, except as documented Hematologic/Lymphatic Hematologic/Lymphatic: Reports system reviewed and no additional complaints, except as documented Allergic/Immunologic Allergic/Immunologic: Reports system reviewed and no additional complaints, except as documented Meds Home Medications and Allergies Home Medications ?Medication ?Instructions ?Recorded ?Confirmed ?Type cetirizine 10 mg tablet 10 mg PO DAILY PRN ALLERGIES 09/22/24 11/16/24 History pantoprazole 40 mg tablet,delayed 40 mg PO DAILY #30 tabs 09/23/24 11/16/24 Rx release acetaminophen 500 mg capsule 500 mg PO Q6H PRN fever or pain 10/12/24 11/16/24 Rx #90 caps bisacodyl 5 mg tablet,delayed 5 mg PO BID PRN constipation 90 10/12/24 11/16/24 Rx release (Dulcolax (bisacodyl)) days #180 tabs alprazolam 0.5 mg tablet 0.5 mg PO TID Anxiety #90 tabs 11/14/24 11/16/24 Rx ferrous sulfate 325 mg (65 mg 325 mg PO BID 11/16/24 11/16/24 History iron) tablet (Iron (ferrous sulfate)) hydrocodone 7.5 mg-acetaminophen 1 tab PO Q6HP PRN Moderate To 11/25/24 Rx 325 mg tablet Severe Pain (4-10) 30 days #120 tabs New Prescriptions to Start Prescriptions: Allergies Allergy/AdvReac Type Severity Reaction Status Date / Time Penicillins Allergy Severe S-SWELLS-OR Verified 12/07/24 23:36 AL/THROAT acetaminophen (From Percocet) Allergy Intermediate I-HIVES Verified 12/07/24 23:36 aspirin (From Percodan) Allergy Intermediate I-HIVES; Verified 12/07/24 23:36 HALLUCINATIONS codeine Allergy Intermediate I-RASH Verified 12/07/24 23:36 egg (From EGGS (FOOD/DRUG)) Allergy Intermediate I-RASH Verified 12/07/24 23:36 morphine Allergy Intermediate I-RASH Verified 12/07/24 23:36 oxycodone (From Percodan) Allergy Intermediate I-HIVES; Verified 12/07/24 23:36 HALLUCINATIONS venom-honey bee (bee venom Allergy Intermediate I-HIVES Verified 12/07/24 23:36 (honey bee)) etodolac Allergy Unknown Verified 12/07/24 23:36 allergy reaction gabapentin Allergy Unknown Verified 12/07/24 23:36 allergy reaction duloxetine AdvReac Unknown Verified 12/07/24 23:36 allergy reaction fluoxetine AdvReac Unknown Verified 12/07/24 23:36 allergy reaction Exam Data for Last 24 hours Vital signs and Labs for Last 24 Hours: Temp Pulse Resp BP Pulse Ox O2 Del Method 98.3 F 107 H 20 102/71 L 95 Room Air 12/07/24 23:32 12/08/24 00:00 12/07/24 23:32 12/08/24 00:00 12/08/24 00:00 12/08/24 00:00 Laboratory Results - last 24 hr 12/07/24 23:20: WBC 7.8, RBC 4.33, Hgb 11.6 L, Hct 35.2 L, MCV 81.3, MCH 26.8 L, MCHC 33.0, RDW 19.3 H, Plt Count 525 H, MPV 8.6, Neut % (Auto) 63.7, Lymph % (Auto) 23.1, [place] % (Auto) 11.4 H, Eos % (Auto) 0.9, Baso % (Auto) 0.8, Neut # (Auto) 5.0, Lymph # (Auto) 1.8, [place] # (Auto) 0.9, Eos # (Auto) 0.1, Baso # (Auto) 0.1, Sodium 134 L, Potassium 4.0, Chloride 95 L, Carbon Dioxide 29, Anion Gap 14.0, BUN 13, Creatinine 0.80, Estimated Creat Clear 48, Estimated GFR 72, Est GFR ( Amer) 87, Glucose 107 H, Calcium 10.0, Total Bilirubin 0.4, AST 33, ALT 10 L, Alkaline Phosphatase 83, Troponin I < 0.01, Total Protein 7.8 D, Albumin 4.0, Globulin 3.8 H, Albumin/Globulin Ratio 1.1 12/08/24 00:04: VBG pH 7.44 H, VBG pCO2 38.5, VBG pO2 47.1 H, VBG HCO3 25.5, VBG Total CO2 26.7, VBG O2 Saturation 82.5 H, VBG Base Excess 1.3, VBG Lactic Acid 1.8 I & O for Last 24 hours: Intake & Output 12/05/24 12/06/24 12/07/24 12/08/24 23:59 23:59 23:59 23:59 Weight 54.431 kg Constitutional Constitutional: no acute distress and thin *Routine HEENT Exam Head: Present normocephalic and atraumatic Eye: Present EOMI, PERRL and normal accommodation ENT: Present mucous membranes moist *Routine Neck Exam Neck: Present supple, full ROM and trachea midline *Routine Respiratory Exam Respiratory: Present diminished air movement, normal respiratory effort, able to speak in complete sentences and symmetric chest movement *Routine Cardiovascular Exam Cardiovascular: Present RRR, Normal S1, Normal S2 and tachycardia *Routine Abdominal Exam Abdominal: Present soft and normoactive bowel sounds *Routine Rectal Exam Rectal:: deferred *Routine Genitalia Exam Genitalia:: deferred *Routine Extremities Exam Extremities: Present full ROM, pulses intact and normal capillary refill Routine Back/Spine/Pelvis Exam Back/Spine: Present full ROM *Routine Skin Exam Skin: Present dry, warm and normal turgor *Routine Neurological Exam Neurological: Present oriented X3, CN II-XII intact, moving all extremities and normal speech Routine Psychiatric Exam Psychiatric: Present normal affect, normal thought process, cooperative, good insight and good judgment H&P: Result Impressions 64-year-old female who has known rectal malignancy presents with a chief complaint of not feeling well since Thursday. Plain films obtained at her nursing facility were consistent with pneumonia and plain films here show multilobular pneumonia. Patient is nontoxic in appearance Assessment and Plan *Assessment and plan (1) Pneumonia: Status: Acute Qualifiers: Pneumonia type: due to unspecified organism Laterality: bilateral Lung location: unspecified part of lung Qualified Code(s): J18.9 - Pneumonia, unspecified organism Category: Medical Code(s): J18.9 - Pneumonia, unspecified organism (2) Thrombocytosis: Status: Acute Category: Medical Code(s): D75.839 - Thrombocytosis, unspecified (3) Anal carcinoma: Status: Acute Category: Medical Code(s): C21.0 - Malignant neoplasm of anus, unspecified Plan Assessment: Multilobular healthcare associated pneumonia -Patient was administered cefepime and 2 g and vancomycin while in emergency room -Will swab for MRSA -Will continue cefepime 2 g every 8 hours -Given patient has untreated malignancy we will obtain a noncontrast study of the chest to rule out any mets -Will obtain procalcitonin -Will monitor blood cultures Thrombocytosis -Will continue IV hydration -Patient is platelet count has been elevated in the past Rectal cancer -Patient has a higher associated risk for thrombosis -Patient is also wanting to seek no treatment for rectal cancer -Will rule out any malignancy of the lung Plan: Admit patient to the MedSurg unit Regular diet COVID panel was pending Will obtain BNP CBC/BMP daily Normal saline at 100 mL an hour 7.5 mg [place] p.o. every 4 hours as needed moderate pain 40 mg Lovenox subcu daily for DVT prophylaxis 600 mg of guaifenesin p.o. twice daily DuoNebs every 6 hours 4 mg Zofran IV push to 8 hours. Nausea vomiting Will consider vancomycin continuation-will discuss with attending Full code I will discuss this case with attending physician Dr. Barnard and a look forward to more input penny krueger
[2024-12-08] MEDS: VANCOMYCIN/WATER FOR INJ (PEG) 1.25 GM/250 ML PIGGYBACK IV (01:00)
[2024-12-08 01:07] LABS: Lactic Acid 1.9 mmol/L (0.7-2.1)
[2024-12-08] MEDS: 0.9 % SODIUM CHLORIDE 1000ML 1,000 ML 100 ML IV (01:35)
[2024-12-08] MEDS: APAP/HYDROCODONE 325MG/7.5MG TAB 1 TAB PO ×3 (01:55→18:24)
[2024-12-08] MEDS: ALPRAZolam 0.5MG TABLET 0.5 MG PO ×3 (01:55→18:24)
[2024-12-08 01:58] LABS: Adenovirus,PCR Not Detected (NotDetected); Bordetella Pertussis Not Detected (NotDetected); Chlamydophila Pneumoniae, PCR Not Detected (NotDetected); Coronavirus 19, PCR Not Detected (NotDetected); Coronavirus 229E Not Detected (NotDetected); Coronavirus NL63 Not Detected (NotDetected); Coronavirus OC43 Not Detected (NotDetected); Coronovirus HKU1,PCR Not Detected (NotDetected); Human Metapneumovirus Not Detected (NotDetected); Influenza A, PCR Not Detected (NotDetected); Influenza AH1, 2009 Not Detected (NotDetected); Influenza AH1, PCR Not Detected (NotDetected); Influenza AH3,PCR Not Detected (NotDetected); Influenza B, PCR Not Detected (NotDetected); Mycoplasma Pneumoniae, PCR Not Detected (NotDetected); Parainfluenza 1, PCR Not Detected (NotDetected); Parainfluenza 2, PCR Not Detected (NotDetected); Parainfluenza 3, PCR Not Detected (NotDetected); Parainfluenza 4, PCR Not Detected (NotDetected); Respiratory Syncytial Virus Not Detected (NotDetected); Rhinovirus/Enterovirus Not Detected (NotDetected)
[2024-12-08 01:58] LABS: Microscopic, Urine URINE MICROSCOPIC (MICROSCOPIC)
[2024-12-08] MEDS: SODIUM CHLORIDE 3% 15ML NEB 3 ML IH (02:12)
[2024-12-08 02:17] LABS: Appearance,Urine CLEAR (Clear); Bilirubin,Urine Negative (Negative); Blood, Urine SMALL (Negative); Color,Urine YELLOW (Yellow); Glucose,Urine (UA) Negative (Negative); Ketones,Urine Negative (Negative); Leukocyte Esterase,Urine MODERATE (Negative); Nitrate,Urine Negative (Negative); Protein,Urine 30 (Negative); Specific Gravity, Urine 1.015 (1.005-1.030); Urobilinogen,Urine 0.2 EU/dl (0.2)
[2024-12-08 02:25] LABS: Bacteria,Urine Trace /lpf; RBC,Urine Occasional #/hpf (0-3); WBC,Urine 20-50 #/hpf (0-3)
[2024-12-08 03:36] LABS: Troponin I < 0.01 ng/ml (0.00-0.034)
[2024-12-08] MEDS: IPRATROPIUM/ALBUTEROL 3 ML NEB IH ×4 (05:58→23:21)
[2024-12-08 07:03] LABS: Troponin I < 0.01 ng/ml (0.00-0.034)
--- NOTE | 2024-12-08 08:07 | SW/DCPLANNER ---
Addendum entered by Rebecca Mills 12/09/24 10:50: Per Janette w/ Hospice patient's family prefer to meet w/ Hospice services once patient returns to [facility]. Patient will discharge to [facility] level of care w/ Hospice to follow up once she returns. I will update Fatmata pagan/ [facility]. Addendum entered by Rebecca Mills 12/09/24 08:41: Per patient and family are agreeable to Hospice services. Patient information will be faxed to [facility] this AM. I will also update Fatmata pagan/ [facility] regarding discharge plans. Per patient will return to [facility]. Original Note: This patient currently resides at [facility] of care. I will continue to follow up w/ Fatmata until patient is medically stable for discharge. Discharge date is unknown at this time.
--- NOTE | 2024-12-08 08:19 | P.CONPHA_ITS ---
Pharmacy Intervention Comments: MEDICATION RECONCILIATION COMPLETED ON PATIENT USING MAR FROM [facility]. -ANAT GALVEZ, CARLOTTAD
--- NOTE | 2024-12-08 08:19 | HMH.PHAINT1 ---
Pharmacy Intervention Comments: MEDICATION RECONCILIATION COMPLETED ON PATIENT USING MAR FROM [facility]. -ANAT GALVEZ, CARLOTTAD
--- NOTE | 2024-12-08 08:32 | CT_ITS ---
FINAL REPORT TECHNIQUE: Thin section axial images were obtained from the thoracic inlet through the upper abdomen after intravenous contrast injection. Reconstruction images were obtained from the axial data. Exam was performed using dose reduction technique. CLINICAL HISTORY: Multifocal opacities, rectal cancer SOA, cough COMPARISON: 04/05/2024 FINDINGS: A right thyroid nodule appears stable. There is no axillary lymphadenopathy. There are multiple, new, enlarged mediastinal lymph nodes. For example; a right paratracheal lymph node measures 14 mm. There is new bilateral hilar lymphadenopathy. There are new small bilateral pleural effusions. A stable pericardial effusion is noted. There are no new, patchy, irregular, somewhat nodular opacities which could be related to infectious or inflammatory etiology. These may also represent metastatic disease. Limited evaluation of the upper abdomen is without acute abnormality. New, small upper abdominal lymph nodes are noted. There are new, lytic, expansile lesions in the left lateral fourth rib and within the right 3rd through 5th ribs. There is a fracture of the right fifth rib. There is a lesion of the right scapula. IMPRESSION: Multiple, new, bilateral, irregular nodular opacities which could be infected/inflammatory or neoplastic. New, multistation lymphadenopathy could be metastatic or reactive. Multiple lytic bone lesions are favored to represent metastatic disease. Reviewed, Interpreted and Dictated by Paz Lopez MD Transcribed by Sheridan Kamara Authenticated and [facility]
[2024-12-08] MEDS: SODIUM CHLORIDE 0.9% 10ML SYR (RAD ONLY) 10 ML IV (08:51)
[2024-12-08] MEDS: IOPAMIDOL-370 (76%);100ML BOTTLE 75 ML IV (08:51)
[2024-12-08] MEDS: ENOXAPARIN 40MG/0.4ML SYRINGE 40 MG SUBCUT (08:52)
[2024-12-08] MEDS: guaiFENesin 600 MG TAB.ER.12H PO ×2 (08:52→20:06)
[2024-12-08 09:08] LABS: Alanine Aminotransferase 10 U/L (12-78); Albumin Level 3.1 g/dl (3.5-5.0); Alkaline Phosphatase 68 U/L (38-126); Anion Gap 12.6 mEq/L (5-15); Aspartate Amino Transferase 31 U/L (14-36); Bilirubin,Total 0.3 mg/dl (0.2-1.3); Blood Urea Nitrogen 11 mg/dl (7-17); Calcium 9.2 mg/dl (8.4-10.2); Carbon Dioxide 24 mmol/L (22.0-30.0); Chloride 100 mmol/L (98-107); Creatinine Clearance Estimated 56 mL/min (50-200); Estimated Glomerular Filt Rate 100 ml/min (>60); GFR (African American) 121 ML/MIN (>60); Globulin 3.1 g/dL (1.3-3.2); Glucose 89 mg/dl (74-100); Potassium 3.6 mmoL/L (3.5-5.1); Sodium 133 mmol/L (136-145); Total Protein,Serum 6.2 g/dl (6.3-8.2)
[2024-12-08 09:16] LABS: NT Pro Brain Natriuretic Pep. 443 pg/mL (0-125)
--- NOTE | 2024-12-08 17:19 | PC.NURSE ---
aox4, has spent most of the day in bed. was amble to stand and pivot to sit in wheelchair for transport to radiology. has slept of and on for most of shift. family is at bedside at this time. pt has been noticeably upset at times. she did c/o pain and anxiety this morning and was received medications per nov. she has not c/o of anything since. tolerating room air.
--- NOTE | 2024-12-08 21:08 | EXP.EVENT.NO ---
#Metastatic cancer ? CT chest shows widespread metastatic cancer to both lungs and surrounding bony infiltrates. ? Patient previously did not want further treatment of relapsing rectal carcinoma, and does not want to pursue treatment for this newfound metastatic cancer. ? Patient and family understandably emotional, and interested in hospice care. They requested if patient can be discharged back to [place] tomorrow rather than today to initiate hospice care which I felt was very appropriate given how late it is.
[2024-12-09] MEDS: APAP/HYDROCODONE 325MG/7.5MG TAB 1 TAB PO ×2 (00:18→07:56)
[2024-12-09] MEDS: CEFEPIME HCL 2 GM in 0.9 % SODIUM CHLORIDE 100 ML IV (00:19)
[2024-12-09 02:30] VITALS: BP 98/58; PULSE 112; RESP 16; TEMP 37.6; O2SAT 85
[2024-12-09 04:00] VITALS: BP 79/43; PULSE 72; RESP 15; TEMP 37.2; O2SAT 92; BMI 26.2
--- NOTE | 2024-12-09 05:51 | PC.NURSE ---
V/s, ox4. Pt will return to [facility] after hospice is set up. No acute events to report. Plan of care ongoing.
[2024-12-09 06:34] VITALS: PULSE 95; PULSE 98
[2024-12-09] MEDS: IPRATROPIUM/ALBUTEROL 3 ML NEB IH ×2 (06:34→11:09)
[2024-12-09 07:03] LABS: Alanine Aminotransferase 8 U/L (12-78); Albumin Level 3.2 g/dl (3.5-5.0); Albumin/Globulin Ratio 1.1 (1.1-1.8); Alkaline Phosphatase 69 U/L (38-126); Anion Gap 11.4 mEq/L (5-15); Aspartate Amino Transferase 26 U/L (14-36); Bilirubin,Total 0.3 mg/dl (0.2-1.3); Blood Urea Nitrogen 10 mg/dl (7-17); Calcium 9.4 mg/dl (8.4-10.2); Carbon Dioxide 25 mmol/L (22.0-30.0); Chloride 101 mmol/L (98-107); Creatinine Clearance Estimated 56 mL/min (50-200); Estimated Glomerular Filt Rate 84 ml/min (>60); GFR (African American) 101 ML/MIN (>60); Glucose 93 mg/dl (74-100); Potassium 3.4 mmoL/L (3.5-5.1); Sodium 134 mmol/L (136-145); Total Protein,Serum 6.2 g/dl (6.3-8.2)
[2024-12-09] MEDS: ALPRAZolam 0.5MG TABLET 0.5 MG PO (07:56)
[2024-12-09 07:58] VITALS: BP 87/49
[2024-12-09 08:00] VITALS: BP 94/62; PULSE 78; RESP 17; TEMP 36.8; O2SAT 93
[2024-12-09] MEDS: 0.9 % SODIUM CHLORIDE 1000ML 500 ML 999 ML IV (10:19)
[2024-12-09] MEDS: ACETAMINOPHEN 325MG TAB 650 MG PO (10:22)
[2024-12-09] MEDS: guaiFENesin 600 MG TAB.ER.12H PO (10:23)
[2024-12-09] MEDS: ENOXAPARIN 40MG/0.4ML SYRINGE 40 MG SUBCUT (10:23)
--- NOTE | 2024-12-09 11:48 | P.DS_ITS ---
General Admission date:: 12/08/24 HPI HPI HPI: This is a 64-year-old female who is known to our service line and has a past medical history significant for anxiety, osteoarthritis, rectal cancer, prior EtOH abuse, generalized weakness, and iron deficiency anemia who presents with a chief complaint of not feeling well since Thursday. Due to patient's symptoms, her nursing facility obtained a chest x-ray which was consistent with pneumonia; as result, patient was transition to the ER for evaluation. While in the emergency room, plain films of patient's chest that show multilobular pneumonia. Patient was nontoxic in appearance; however, she has been admitted. During my evaluation patient, patient states she has had a nonproductive cough, pain with coughing on the right side of her chest that shoots to her back, chill s, small amount of wheezing, and not feeling well since Thursday. It is worth mentioning that patient was recently admitted and evaluated for rectal cancer where she refused any endoscopy. Patient did not want to pursue treatment for her cancer. Patient also had some weakness on the prior admission and was living in a camper, so she was transition to the nursing facility she is currently residing in. She is currently denying any chest pain, lightheadedness, dizziness, fever, rigors, nausea, vomiting, PND, orthopnea, lower extremity edema, or diarrhea. Additional pertinent values obtained in cluding hemoglobin 11.6, hematocrit 35.2, platelet count of 525, pH of 7.44, sodium 134, chloride of 95, and blood glucose 107. Hospital Course Hospital Course Hospital Course: Florencia Waller is a 64-year-old female with a medical history significant for relapsing rectal carcinoma (no longer wanting treatment) presented with shortness of breath and was found to have metastatic cancer to the lungs. #Metastatic cancer #History of relapsing rectal carcinoma ? Patient has unfortunately undergone multiple rounds of chemo, radiation therapy since the age of 7 for various cancers including thyroid, rectal cancer. She has understandably not wanting further treatment for rectal cancer but relapsed a few months ago. ? Presented with shortness of breath, CT chest shows diffuse metastatic cancer to bilateral lungs and bony infiltrates. This of course does not represent pote ntial metastasis in other areas of the body. ? Extensively discussed with patient and family at bedside, they were understandably emotional but want to pursue hospice care. Patient does not want further evaluation management of new bowel lesions. ? Family and patient would like to initiate hospice care once patient returns back to [facility] for long-term assisted living. #Community-acquired pneumonia ? Discharged with 3 more days of Levaquin. #Generalized weakness #Lower extremity weakness #Right knee pain, osteoarthritis #Cancer pain ? Increase [employer] to 10 mg every 6 hours. Patient will return to [facility]. #Anxiety/depression ? Xanax as needed for anxiety. Started Lexapro 10 mg, follow-up on response. Total time spent on discharge: 32 minutes on chart review, counseling, documentation, and direct care with patient. Exam Data for Last 24 hours Vital signs and Labs for Last 24 Hours: Temp Pulse Resp BP Pulse Ox O2 Del Method 98.2 F 78 17 94/62 L 93 L Room Air 12/09/24 08:00 12/09/24 08:00 12/09/24 08:00 12/09/24 08:00 12/09/24 08:00 12/09/24 11:00 Laboratory Results - last 24 hr 12/09/24 06:18: Sodium 134 L, Potassium 3.4 L, Chloride 101, Carbon Dioxide 25, Anion Gap 11.4, BUN 10, Creatinine 0.70, Estimated Creat Clear 56, Estimated GFR 84, Est GFR ( Amer) 101, Glucose 93, Calcium 9.4, Total Bilirubin 0.3, AST 26, ALT 8 L, Alkaline Phosphatase 69, Total Protein 6.2 L, Albumin 3.2 L, Globulin 3.0, Albumin/Globulin Ratio 1.1 I & O for Last 24 hours: Intake & Output 12/06/24 12/07/24 12/08/24 12/09/24 23:59 23:59 23:59 23:59 Intake Total 170 / 170 740 / 740 Output Total 1110 / 1110 450 / 450 Balance -940 / -940 290 / 290 Weight 54.431 kg 64.665 kg 64.665 kg Microbiology Reports for the Last 24 Hours: Microbiology 12/08/24 00:00 Blood Blood Culture - Preliminary NO GROWTH AFTER 24 HOURS 12/07/24 23:55 Blood Blood Culture - Preliminary NO GROWTH AFTER 24 HOURS Constitutional Constitutional: no acute distress *Routine HEENT Exam Head: Present normocephalic Eye: Present EOMI and PERRL ENT: Present mucous membranes moist *Routine Neck Exam Neck: Present supple; Absent lymphadenopathy *Routine Respiratory Exam Respiratory: Present CTA bilaterally *Routine Cardiovascular Exam Cardiovascular: Present RRR *Routine Abdominal Exam Abdominal: Present soft and normoactive bowel sounds; Absent tenderness *Routine Extremities Exam Extremities: Absent cyanosis, clubbing or edema *Routine Skin Exam Skin: Present warm; Absent rash *Routine Neurological Exam Neurological: Present alert and oriented X3 Results Data Completed and Pending Labs on day of discharge: Labs from last 24 hours 12/09/24 06:18 Sodium 134 L Potassium 3.4 L Chloride 101 Carbon Dioxide 25 Anion Gap 11.4 BUN 10 Creatinine 0.70 Estimated Creat Clear 56 Estimated GFR 84 Est GFR ( Amer) 101 Glucose 93 Calcium 9.4 Total Bilirubin 0.3 AST 26 ALT 8 L Alkaline Phosphatase 69 Total Protein 6.2 L Albumin 3.2 L Globulin 3.0 Albumin/Globulin Ratio 1.1 Preliminary micro results at discharge 12/08/24 00:00 Blood Culture - Preliminary Blood NO GROWTH AFTER 24 HOURS 12/07/24 23:55 Blood Culture - Preliminary Blood NO GROWTH AFTER 24 HOURS DS: Diagnosis Discharge Diagnosis (1) Pneumonia: Status: Acute Code(s): J18.9 - Pneumonia, unspecified organism Qualifiers: Laterality: bilateral Lung location: unspecified part of lung Pneumonia type: due to unspecified organism Qualified Code(s): J18.9 - Pneumonia, unspecified organism (2) Thrombocytosis: Status: Acute Code(s): D75.839 - Thrombocytosis, unspecified (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 - Malignant neoplasm of anus, unspecified (4) Metastatic cancer: Status: Acute Code(s): C79.9 - Secondary malignant neoplasm of unspecified site Meds Home Medications and Allergies Home Medications ?Medication ?Instructions ?Recorded ?Confirmed ?Type cetirizine 10 mg tablet 10 mg PO DAILY 09/22/24 12/08/24 History ferrous sulfate 325 mg (65 mg 325 mg PO BID 11/16/24 12/08/24 History iron) tablet (Iron (ferrous sulfate)) alprazolam 0.5 mg tablet 0.5 mg PO TID 12/08/24 12/08/24 History bisacodyl 5 mg tablet,delayed 5 mg PO BIDP PRN constipation 12/08/24 12/08/24 History release (Dulcolax (bisacodyl)) pantoprazole 40 mg tablet,delayed 40 mg PO DAILY 12/08/24 12/08/24 History release hydrocodone 5 mg-acetaminophen 325 1 tab PO Q6H PRN pain #18 tabs 12/09/24 Rx mg tablet levofloxacin 750 mg tablet 750 mg PO DAILY 3 days #3 tabs 12/09/24 Rx New Prescriptions to Start Prescriptions: hydrocodone-acetaminophen Cam Barnard levofloxacin Cam Barnard Allergies Allergy/AdvReac Type Severity Reaction Status Date / Time Penicillins Allergy Severe S-SWELLS-OR Verified 12/07/24 23:36 AL/THROAT acetaminophen (From Percocet) Allergy Intermediate I-HIVES Verified 12/07/24 23:36 aspirin (From Percodan) Allergy Intermediate I-HIVES; Verified 12/07/24 23:36 HALLUCINATIONS codeine Allergy Intermediate I-RASH Verified 12/07/24 23:36 egg (From EGGS (FOOD/DRUG)) Allergy Intermediate I-RASH Verified 12/07/24 23:36 morphine Allergy Intermediate I-RASH Verified 12/07/24 23:36 oxycodone (From Percodan) Allergy Intermediate I-HIVES; Verified 12/07/24 23:36 HALLUCINATIONS venom-honey bee (bee venom Allergy Intermediate I-HIVES Verified 12/07/24 23:36 (honey bee)) etodolac Allergy Unknown Verified 12/07/24 23:36 allergy reaction gabapentin Allergy Unknown Verified 12/07/24 23:36 allergy reaction duloxetine AdvReac Unknown Verified 12/07/24 23:36 allergy reaction fluoxetine AdvReac Unknown Verified 12/07/24 23:36 allergy reaction Discharge Plan Disposition Patient Disposition: Xfer Intermediate Care Fac Condition: Fair Discharge Order Discharge Orders: Discharge Order (Routine); Ordered 12/09/24 Ordered By: Cam Barnard Follow up Plan Prescriptions/Medication Reconciliation: New levofloxacin 750 mg tablet 750 mg PO DAILY 3 Days Qty: 3 0RF hydrocodone-acetaminophen 5-325 mg tablet 1 tab PO Q6H PRN (Reason: pain) Qty: 18 0RF Continued ferrous sulfate [Iron (ferrous sulfate)] 325 mg (65 mg iron) tablet 325 mg PO BID cetirizine 10 mg Tablet 10 mg PO DAILY pantoprazole 40 mg tablet,delayed release (DR/EC) 40 mg PO DAILY alprazolam 0.5 mg tablet 0.5 mg PO TID bisacodyl [Dulcolax (bisacodyl)] 5 mg tablet,delayed release (DR/EC) 5 mg PO BIDP PRN (Reason: constipation) Discontinued hydrocodone-acetaminophen 7.5-325 mg tablet 1 tab PO Q6HP PRN (Reason: Moderate To Severe Pain (4-10)) 30 Days Qty: 120 0RF Problem Reconciliation Problems Reviewed?: Yes Patient Discharge Instructions Patient Instructions: DI for Pneumonia -- Adult, DI for Sepsis -- Adult Print Language: Japanese Providers Primary Care Provider: Provider,Referral Admit Provider: Cam Barnard Attending Provider: Cam Barnard
[2024-12-09] MEDS: HYDROMORPHONE 2MG/ML SYRINGE 1 MG IV (12:32)
== END 2024-12-09 12:55 ==
LOC: ER 12-08 00:25 → 2ND 12-08 00:28
PROVIDERS: Nurse Practitioner Family; Admitting Provider Student in an Organized Health Care Education/Training Program; Emergency Provider Emergency Medicine; Visit Provider Student in an Organized Health Care Education/Training Program
DX: J18.9 Pneumonia, unspecified organism (principal); C20 Malignant neoplasm of rectum; C78.02 Secondary malignant neoplasm of left lung; C78.01 Secondary malignant neoplasm of right lung; D75.839 Thrombocytosis, unspecified; R53.1 Weakness; Z51.5 Encounter for palliative care; G89.3 Neoplasm related pain (acute) (chronic); R00.0 Tachycardia, unspecified; F10.11 Alcohol abuse, in remission; M17.9 Osteoarthritis of knee, unspecified; F41.9 Anxiety disorder, unspecified; E87.1 Hypo-osmolality and hyponatremia; D50.9 Iron deficiency anemia, unspecified; F32.A Depression, unspecified; Z92.21 Personal history of antineoplastic chemotherapy; Z92.3 Personal history of irradiation; Z84.0 Family history of diseases of the skin and subcutaneous tissue; Z82.3 Family history of stroke; Z80.9 Family history of malignant neoplasm, unspecified; Z79.891 Long term (current) use of opiate analgesic; Z79.899 Other long term (current) drug therapy; Z74.1 Need for assistance with personal care; Z88.0 Allergy status to penicillin; Z88.8 Allergy status to other drugs, medicaments and biological substances; Z88.6 Allergy status to analgesic agent; Z91.030 Bee allergy status; Z91.012 Allergy to eggs
CPT/HCPCS: 36415; 71045; 71260; 80053; 81001; 82803; 83605; 83880; 84145; 84484; 85025; 87040; 87081; 87086; 87633; 93005; 94640; 99291; G0378; J1171; J1650; J3372; J7030; J7120; J7620; Q9967